=== PATIENT | female | born 1980 | race Caucasian/White ===

== ENCOUNTER → 2018-08-06 10:18 | Outpatient (CLI) | payer SELFPAY ==
[2018-08-09 13:16] LABS: HPV Reflexed? NOT INDICATED
== END ==
PROVIDERS: Visit Provider Obstetrics & Gynecology
DX: Z12.4 Encounter for screening for malignant neoplasm of cervix (principal)
CPT/HCPCS: 88175; G0145

== ENCOUNTER → 2018-08-27 10:13 | Outpatient (CLI) | payer SELFPAY ==
--- NOTE | 2018-08-27 10:22 | BI_ITS ---
MAMMOGRAPHY - BILATERAL SCREENING REASON FOR EXAM: Female, 38 years old. Routine annual screening examination. PERTINENT HISTORY: Non-contributory. Remote left excisional breast biopsy. TECHNIQUE: Digital bilateral breast emperatriz (3D mammographic acquisition) in the CC and MLO projections. 2-D mediolateral oblique (MLO) and craniocaudad (CC) views of both breasts were obtained. CAD: Full Field Digital Mammography with Computer Added Detection was performed. COMPARISON: None. Baseline examination. FINDINGS: Breast Composition: The breasts are extremely dense, which lowers the sensitivity of mammography. There are no dominant masses or suspicious calcifications. No other significant abnormalities are identified. BI/SCREENING MAMM (CAD), BILAT IMPRESSION: Negative screening mammogram. Yearly followup mammogram recommended. (A) ASSESSMENT CATEGORY: BIRADS Category 1: Negative. A letter regarding these results will be sent to the patient by the facility within 30 days. Approximately 10% of breast cancers are not detected by mammography. A normal mammogram should not delay biopsy of a clinically suspicious abnormality. [id number] Electronically Signed: Rodger Manning MD at 10:31 EDT Tel [phone], Service support ,
== END ==
PROVIDERS: Family Provider Internal Medicine; PCP Internal Medicine; Visit Provider Obstetrics & Gynecology
DX: Z12.31 Encounter for screening mammogram for malignant neoplasm of breast (principal)
CPT/HCPCS: 77063; 77067

== ENCOUNTER → 2019-03-06 | Outpatient (CLI) | payer SELFPAY ==
--- NOTE | 2019-03-06 10:19 | RAD_ITS ---
STUDY: X-RAY - RIGHT TIBIA AND FIBULA REASON FOR EXAM: Female, 38 years old. Distal pain. TECHNIQUE: 2 view(s) of the tibia and fibula were obtained. COMPARISON: None. FINDINGS: Normal visualized tibia. Normal visualized fibula. The soft tissue structures are unremarkable. RAD/Tibia & Fibula 2 Views IMPRESSION: Normal x-ray examination of the tibia and fibula. Electronically Signed: Rodger Manning, at 10:39 EDT , Service support ,
== END | disposition home or self-care (01) ==
PROVIDERS: Family Provider Internal Medicine; PCP Internal Medicine; Referring Provider Internal Medicine; Visit Provider Internal Medicine
DX: M79.604 Pain in right leg (principal)
CPT/HCPCS: 73590

== ENCOUNTER → 2019-08-14 | Outpatient (CLI) | payer SELFPAY ==
--- NOTE | 2019-08-14 14:27 | BI_ITS ---
BILATERAL DIGITAL MAMMOGRAM WITH TOMOSYNTHESIS: Mediolateraloblique and craniocaudal views demonstrate no evidence of dominant parenchymal masses. No cluster of microcalcifications or architectural distortion is seen. No evidence of skin thickening is identified. There has been no significant change since 08/27/2018. Breast Density: The breast tissue is extremely dense which may lower the sensitivity of mammography. CAD was used to assist in final assessment. IMPRESSION: NORMAL MAMMOGRAM BILATERALLY. ASSESSMENT CATEGORY: BIRADS Category 1: Negative. A letter regarding these results will be sent to the patient by the facility within 30 days. FOLLOW UP RECOMMENDATION: Yearly follow up mammogram recommended. (A) Approximately 10% of breast cancers are not detected by mammography. A normal mammogram should not delay biopsy of a clinically suspicious abnormality. Electronically Signed: Grabiel Vargas, at 16:47 EDT Tel , Service support , BI/SCREEN MAMM (CAD) W/SIGIFREDO OLEA
== END | disposition home or self-care (01) ==
PROVIDERS: Family Provider Internal Medicine; PCP Internal Medicine; Referring Provider Obstetrics & Gynecology; Visit Provider Obstetrics & Gynecology
DX: Z12.31 Encounter for screening mammogram for malignant neoplasm of breast (principal)
CPT/HCPCS: 77063; 77067

== ENCOUNTER → 2019-09-24 17:08 | Outpatient (CLI) | payer SELFPAY | PROVIDERS: Family Provider Internal Medicine; PCP Internal Medicine; Referring Provider Obstetrics & Gynecology; Visit Provider Obstetrics & Gynecology | DX: R30.0 Dysuria (principal) | CPT/HCPCS: 87086; 87088 ==

== ENCOUNTER → 2022-06-03 | Outpatient (CLI) | payer SELFPAY ==
[2022-06-07 21:49] LABS: HPV Reflexed? NOT INDICATED
== END | disposition home or self-care (01) ==
PROVIDERS: PCP Internal Medicine; Referring Provider Internal Medicine; Visit Provider Internal Medicine
DX: Z12.4 Encounter for screening for malignant neoplasm of cervix (principal)
CPT/HCPCS: 88175; G0145

== ENCOUNTER → 2022-06-29 | Outpatient (CLI) | payer SELFPAY ==
--- NOTE | 2022-06-29 10:22 | BI_ITS ---
MAMMOGRAPHY - BILATERAL SCREENING REASON FOR EXAM: Female, 42 years old. Routine annual screening examination. PERTINENT HISTORY: Non-contributory. Remote left excisional breast biopsy. TECHNIQUE: Digital bilateral breast sigifredo (3D mammographic acquisition) in the CC and MLO projections. 2-D mediolateral oblique (MLO) and craniocaudad (CC) views of both breasts were obtained. CAD: Full Field Digital Mammography with Computer Added Detection was performed. COMPARISON: Comparison is made with prior study dated 08/14/2019 and 08/27/2018. FINDINGS: Breast Composition: The breasts are extremely dense, which lowers the sensitivity of mammography. There are no dominant masses or suspicious calcifications. No other significant abnormalities are identified. There has been no significant change since the prior study. BI/SCRN MAMM (CAD)W/SIGIFREDO BILAT IMPRESSION: Stable bilateral screening mammogram. Yearly follow-up mammogram recommended. (A) ASSESSMENT CATEGORY: BIRADS Category 1: Negative. A letter regarding these results will be sent to the patient by the facility within 30 days. Approximately 10% of breast cancers are not detected by mammography. A normal mammogram should not delay biopsy of a clinically suspicious abnormality. [id number] Electronically Signed: Rodger Manning MD at 12:07 EDT ,
== END | disposition home or self-care (01) ==
LOC: OPBI 10:01
PROVIDERS: PCP Internal Medicine; Visit Provider Internal Medicine
DX: Z12.31 Encounter for screening mammogram for malignant neoplasm of breast (principal)
CPT/HCPCS: 77063; 77067

== ENCOUNTER → 2023-11-22 | Outpatient (CLI) | payer SELFPAY ==
--- NOTE | 2023-11-22 11:11 | VDLE_ITS ---
Reason For Study: RLE PAIN RIGHT GSV is normal. CFV is compressible, spontaneous, phasic, competent and demonstrates normal augmentation. FV is compressible, spontaneous, phasic, competent and demonstrates normal augmentation. POP V is compressible, spontaneous, phasic, competent and demonstrates normal augmentation. T/P Trunk is compressible. PTV is compressible. RT PerV is compressible. Procedure This is a venous duplex using B-mode, color flow and spectral Doppler. Exam performed in department. The exam was diagnostic. A preliminary report was called and/or faxed to Dr. Scott @ [phone] @ 11:30 am. Image #8 is PTV & PERV, Image #9 is PERV. VL/Venous Duplex US, Unilateral Interpretation Summary Deep veins of the right lower extremity are patent and compressible segmentally . There is no evidence of right lower extremity deep vein thrombosis. Valvular competence ada ears intact within the proximal deep venous system on the right . The right great saphenous vein a ppears patent and compressible segmentally. Ordering Physician: Naila Scott Referring Physician: Naila Scott Performed By: Kathy Mckeon, RDANTONINA, RVT
== END | disposition home or self-care (01) ==
PROVIDERS: PCP Internal Medicine; Referring Provider Internal Medicine; Visit Provider Internal Medicine
DX: M79.604 Pain in right leg (principal)
CPT/HCPCS: 93971

== ENCOUNTER 2024-01-04 05:58 | Day surgery (SDC) | payer SELFPAY ==
[2024-01-04] VITALS (8 sets, daily range): BP systolic 103–123; BP diastolic 66–95; PULSE 82–100; RESP 16; TEMP 36.2–37.3; O2SAT 100; BMI 26.4
[2024-01-04] MEDS: Lactated Ringers 1,000 ML 15 ML IV (06:39)
[2024-01-04 06:51] LABS: Internal QC Validated? YES +Cl - CLEAR BKGD; Pregnancy, Urine Negative Negative
--- OUTSIDE RECORDS SUMMARY | 2024-01-04 07:12 | XMS RPT_ITS | CCD ---
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 Name Role Phone Fast, Naila A Unavailable Fast, Naila A Unavailable Tejal Marroquin Unavailable Unavailable Manchak, Meaghan Unavailable Unavailable DANIELLA Dominguez Unavailable Unavailable Unavailable Unavailable Fast, Naila A Unavailable Fast, Naila A Unavailable Demetrio Roe Unavailable Unavailable Manchak, Meaghan Unavailable Unavailable RoseannedarioRaisa Unavailable Unavailable Unavailable Manchak, Meaghan Unavailable Unavailable DANIELLA Dominguez Unavailable Unavailable Fast DO, Naila A Unavailable Fast DO, Naila A Unavailable Manchak COLLETER, Meaghan Unavailable Unavailable Unavailable Unavailable Fast DO, Naila A Unavailable Fast DO, Naila A Attending Unavailable Fast DO, Naila A Referring Unavailable Fast DO, Naila A Consulting Unavailable Unavailable Unavailable Dr. William Jimenez Unavailable Dr. Naila Scott Attending Unavailable Dr. Naila Scott [facility] Unavailable Allergies Allergy Classification Reported Allergen(s) Allergy Type Date of Onset Reaction(s) Facility Quinolones (antibiotic) (2 sources) levoFLOXacin Drug Allergy [facility]; [facility] Work Phone: Medications Completed/Discontinued Medications Medication Drug Class(es) Dates Sig (Normalized) Sig (Original) amoxicillin 875 mg / clavulanate 125 mg oral tablet (20 sources) Penicillin-class Antibacterial Start: 09-14-2022 End: 04-24-2023 take 1 tablet by mouth twice daily amoxicillin-pot clavulanate 875-125 mg oral tablet 1 (one) Tablet twice daily for 14 days Quantity: 28 {Tablet} Refills: 1 Ordered: 24-Apr-2023 Meaghan Cevallos CMA Start : 14-Sep-2022 End : 24-Apr-2023 Inactive Problems Active Problems Problem Classification Problem Date Documented Da te Episodic/Chronic Abdominal hernia (20 sources) Hiatal hernia; Translations: [Hiatal hernia] 12-15-2017 Episodic Past or Other Problems Problem Classification Problem Date Documented Date Episodic/Chronic Administrative/social admission (20 sources) Medical examinations/reports status; Translations: [Well female exam with routine gynecological exam] Resolved: 04-22-2009 09-22-2015 Episodic Headache; including migraine (20 sources) Headache; including migraine Other nutritional; endocrine; and metabolic disorders (20 sources) Body mass index 25-29 - overweight; Translations: [BMI 25.0-25.9,adult] Resolved: 09-23-2019 03-06-2019 Chronic Other nutritional; endocrine; and metabolic disorders (7 sources) Body mass index 25-29 - overweight; Translations: [BMI 25.0-25.9,adult] Resolved: 09-23-2019 11-10-2020 Episodic Otitis media and related conditions (20 sources) Otitis media and related conditions Residual codes; unclassified (20 sources) Requires diphtheria, tetanus and pertussis vaccination; Translations: [Need for Tdap vaccination] Resolved: 01-25-2017 01-25-2017 Episodic Unclassified (20 sources) Influenza vaccination declined (Renamed from Refused influenza vaccine) Unclassified (20 sources) Abnormal gallbladder ultrasound Unclassified (20 sources) Unspecified Diagnosis Resolved: 01-25-2017 01-25-2017 Unclassified (20 sources) Diarrhea (Renamed from D (diarrhea)) Unclassified (20 sources) Rash (Renamed from Cutaneous eruption) Unclassified (20 sources) Acute ethmoidal sinusitis, recurrence not specified Unclassified (20 sources) Varicose veins of legs Unclassified (20 sources) Need for Tdap vaccination Unclassified (20 sources) [facility] wellness exam 12-15-2017 Results Test Name Value Interpretation Reference Range Facil ity Vital Signs Date Time Vital Sign Value Performing Clinician Facility 04-24-2023 13:34-0400 Body height 156.21 cm Meaghan Cevallos [facility]; [facility] Work Phone: 04-24-2023 13:34-0400 Body mass index (BMI) [Ratio] 25.2 kg/m2 Meaghan Cevallos [facility]; [facility] Work Phone: 04-24-2023 13:34-0400 Body surface area Derived from formula 1.61 m2 Meaghan Cevallos [facility]; [facility] Work Phone: 04-24-2023 13:34-0400 Body temperature 98.4 [degF] Meaghan Cevallos [facility] Comprehensi ve [facility]; [facility] Work Phone: Encounters Encounter Date Encounter Type Care Provider Facility Start: 08-25-2023 End: 08-25-2023 Phone Encounter Naila Fast DO Work Phone: [facility] Start: 05-24-2023 End: 05-24-2023 Phone Encounter Naila Fast DO Work Phone: [facility] Start: 05-17-[address] Naila Scott Facili ty:[id number] Start: 04-24-2023 End: 04-24-2023 Patient encounter procedure Naila Fast DO Work Phone: [facility] Start: 04-24-2023 Review Naila Fast DO Work Phone: [facility] Start: 04-14-2023 End: 04-11-2023 Phone Encounter Naila Fast DO Work Phone: [facility] Start: 01-13-2023 ambulatory Naila Mcmullen [facility] Start: 09-14-2022 End: 09-18-2022 Office outpatient visit 10 minutes Naila Fast DO Work Phone: [facility] Start: 09-14-2022 Review Naila Fast DO Work Phone: [facility] Start: 06-03-2022 End: 06-03-2022 Office outpatient visit 25 minutes Naila Fast DO Work Phone: [facility] Start: 06-03-2022 Review Naila Fast DO Work Phone: [facility] Start: 05-18-2022 End: 07-27-2022 Phone Encounter Naila Fast DO Work Phone: [facility] Start: 05-18-2022 Review Naila Fast DO Work Phone: [facility] Start: 12-03-2021 End: 12-03-2021 Phone Encounter Naila Fast DO Work Phone: [facility] Start: 11-17-2021 End: 11-21-2021 Office outpatient visit 15 minutes Naila Fast DO Work Phone: [facility] Start: 05-12-2021 End: 05-13-2021 Office outpatient visit 15 minutes Naila Fast DO Work Phone: [facility] Start: 11-16-2020 End: 11-16-2020 Office outpatient visit 15 minutes Naila Fast [facility] Start: 11-10-2020 End: 11-15-2020 Office outpatient visit 15 minutes Naila Fast [facility] Start: 11-10-2020 Review Naila Fast [facility] Start: 10-08-2020 End: 10-08-2020 Lab Order Naila Fast [facility] Start: 04-08-2020 End: 04-08-2020 Phone Encounter Naila Fast [facility] Start: 03-23-2020 End: 03-23-2020 Office outpatient visit 25 minutes Naila Fast [facility] Start: 01-08-2020 End: 01-08-2020 Office outpatient visit 15 minutes Naila Fast [facility] Start: 11-28-2019 End: 11-28-2019 Periodic preventive med est patient 18-39 yrs Naila Fast [facility] Start: 09-23-2019 End: 02-18-2020 Office outpatient visit 25 minutes Naila Fast [facility] Start: 09-23-2019 Review Naila Fast [facility] Start: 09-09-2019 End: 09-09-2019 Office outpatient visit 15 minutes Naila Fast [facility] Start: 09-02-2019 End: 09-02-2019 Office outpatient visit 5 minutes Naila Fast [facility] Start: 03-06-2019 End: 03-07-2019 Office outpatient visit 15 minutes Naila Fast [facility] Start: 02-15-2019 Review Nailaernie Scott [facility] Start: 02-14-2019 End: 02-15-2019 Office outpatient visit 5 minutes Naila Fast [facility] Start: 01-31-2019 End: 01-31-2019 Lab Order Naila Fast [facility] Start: 01-04-2019 End: 01-04-2019 Lab Order Naila Fast [facility] Start: 01-04-2019 End: 01-04-2019 Office outpatient visit 15 minutes Naila Fast [facility] Start: 09-12-2018 End: 11-07-2018 Office outpatient visit 5 minutes Naila Fast [facility] Start: 08-27-2018 End: 08-27-2018 Office outpatient visit 15 minutes Naila Fast [facility] Start: 08-20-2018 End: 08-20-2018 Lab Order Naila Fast [facility] Start: 12-15-2017 End: 12-15-2017 Office outpatient visit 15 minutes Naila Fast [facility] Start: 10-23-2017 End: 11-12-2017 Office outpatient visit 15 minutes Naila Fast [facility] Start: 06-06-2017 End: 06-06-2017 Office outpatient visit 15 minutes Naila Fast [facility] Start: 03-30-2017 End: 03-30-2017 Phone Encounter Naila Fast [facility] Start: 01-25-2017 End: 01-26-2017 Office outpatient visit 15 minutes Naila Fast [facility] Start: 01-09-2017 End: 01-09-2017 Phone Encounter Naila Fast [facility] Start: 10-19-2016 End: 11-03-2016 Office outpatient visit 5 minutes Naila Fast [facility] Start: 05-26-2016 End: 05-26-2016 Office outpatient visit 5 minutes Naila Fast [facility] Start: 05-04-2016 End: 05-04-2016 Office outpatient visit 25 minutes Naila Fast [facility] Start: 02-02-2016 End: 02-02-2016 Office outpatient visit 25 minutes Naila Fast [facility] Start: 09-01-2015 End: 09-01-2015 Office outpatient visit 15 minutes Naila Fast [facility] Start: 08-31-2015 End: 08-31-2015 Phone Encounter Nailaernie Scott [facility] Start: 08-25-2015 End: 08-25-2015 Office outpatient visit 15 minutes Naila Tyler [facility] Start: 08-24-2015 End: 08-24-2015 Office outpatient visit 25 minutes Nailaernie Scott [facility] Start: 08-18-2015 End: 08-18-2015 Office outpatient visit 15 minutes Nailaernie Scott [facility] Start: 07-14-2015 End: 07-14-2015 Office outpatient visit 25 minutes Nailaernie Scott [facility] Start: 06-01-2015 End: 06-01-2015 Patient encounter Naliaernie Scott [facility] Start: 08-15-2013 End: 08-15-2013 Patient encounter Nailaernie Scott [facility] Start: 07-05-2013 End: 07-05-2013 Patient encounter Nailaernie Scott [facility] Start: 06-03-2013 End: 06-03-2013 Phone Encounter Nailaernie Scott [facility] Start: 02-29-2012 End: 02-29-2012 Patient encounter Nailaernie Scott [facility] Start: 10-19-2011 End: 10-19-2011 Office outpatient visit 15 minutes Nailaernie Scott [facility] Start: 03-28-2011 End: 03-28-2011 Patient encounter Nailaernie Scott [facility] Start: 12-06-2010 End: 12-06-2010 Patient encounter Nailaernie Scott [facility] Start: 08-24-2009 End: 08-24-2009 Patient encounter Nailaernie Scott [facility] Start: 05-25-2009 End: 05-26-2009 Patient encounter Nailaernie Scott [facility] Start: 02-17-2009 End: 02-17-2009 Patient encounter Nailaernie Scott [facility] Start: 12-17-2008 End: 12-17-2008 Medical examinations/reports status Naila Scott DO Work Phone: [facility] Start: 12-17-2008 End: 12-17-2008 Office outpatient visit 15 minutes Nailaernie Scott [facility] Start: 11-21-2008 End: 11-21-2008 Patient encounter Nailaernie Scott [facility] Start: 09-05-2008 End: 09-05-2008 Patient encounter Naila Tyler [facility] Start: 03-28-2008 End: 03-28-2008 Patient encounter Naila Scott [facility] Start: 01-09-2008 End: 01-09-2008 Patient encounter Naila Scott [facility] Start: 10-05-2007 End: 10-05-2007 Patient encounter Naila Scott [facility] Start: 02-13-2007 End: 02-13-2007 Patient encounter Naila Scott [facility] End: 04-22-2009 Medical examinations/reports status Bobbi Mandujano [facility]; [facility] Work Phone: Procedures Date Procedure Procedure Detail Performing Clinician Start: 07-21-2023 End: 07-21-2023 Colonoscopy Meaghan Cevallos CMA Plan of Treatment Date Care Activity Detail Author Start: 04-24-2023 Urnls dip stick/tablet rgnt auto w/o microscopy URINALYSIS W/O MICRO (08086) [facility]; [facility] Work Phone: Start: 04-24-2023 C-reactive protein C-REACTIVE PROTEIN (37603) [facility]; [facility] Work Phone: Start: 04-24-2023 Sedimentation rate rbc non-automated SED RATE ERYTHROCYTE (04358) [facility]; [facility] Work Phone: Start: 04-24-2023 Procedure Education Eprescribed prescriptions (G8553) [facility]; [facility] Work Phone: Start: 04-14-2023 CBC, PLATELETS & MANUAL DIFF (54832) CBC, PLATELETS & MANUAL DIFF (71580) [facility]; [facility] Work Phone: Start: 04-14-2023 Comprehensive metabolic panel METABOLIC PANEL, COMPREHENSIVE (54086) [facility]; [facility] Work Phone: Start: 04-14-2023 Urnls dip stick/tablet reagent auto microscopy Urinalysis, Complete W/ Microscopic Examination with reflex to urine culture, routine (48082) [facility]; [facility] Work Phone: Start: 09-14-2022 Procedure Education Eprescribed prescriptions (G8553) [facility]; [facility] Work Phone: Start: 06-03-2022 Procedure Education Eprescribed prescriptions (G8553) [facility]; [facility] Work Phone: Start: 06-03-2022 Comprehensive metabolic panel METABOLIC PANEL, COMPREHENSIVE (46271) [facility]; [facility] Work Phone: Start: 06-03-2022 Lipid panel LIPID PANEL (41098) [facility]; [facility] Work Phone: Start: 06-03-2022 Cytp c/v auto thin lyr prepj scr mnl rescr phys Thin Prep Pap (28932) [facility]; [facility] Work Phone: Start: 05-18-2022 Comprehensive metabolic panel METABOLIC PANEL, COMPREHENSIVE (53619) [facility]; [facility] Work Phone: Start: 05-18-2022 CBC, PLATELETS & MANUAL DIFF (85035) CBC, PLATELETS & MANUAL DIFF (76406) [facility]; [facility] Work Phone: Start: 11-21-2021 Procedure Education Eprescribed prescriptions (G8553) [facility]; [facility] Work Phone: Start: 05-12-2021 Procedure Education Eprescribed prescriptions (G8553) [facility]; [facility] Work Phone: Start: 11-10-2020 Procedure Education Eprescribed prescriptions (G8553) [facility]; [facility] Work Phone: Start: 10-08-2020 Culture bct isol&prsmptv id isolate ea urine URINE VANESSA CULTURE-IDENTIFICATN (13203) [facility] Work Phone: Start: 03-23-2020 Procedure Education Eprescribed prescriptions (G8553) [facility] Work Phone: Start: 03-23-2020 Bacteria identified Aer cx Nom (Unsp spec) Aerobic Bacterial Culture (19922) [facility] Work Phone: Payers Date Payer Category Payer Unknown [id number] 2012 Unknown [id number] 2007 Unknown [id number] 2006 Private Health Insurance [id number] 1978 Unknown [id number] 1978 Unknown [id number] Unknown Unknown [id number] Social History Date Type Detail Facility Caffeine Use Never smoker [facility] Work Phone: Tobacco use: Never smoker. [facility] Work Phone: Tobacco use: Tobacco use: [facility] Work Phone: Clinical Notes Note Date & Type Note Facility [facility] Work Phone: Instructions* Name Dates Details Patient Instructions Indication:COVID Start:21-Nov-2021 Instruction Type:Provider Instructions for Treatment Patient Instructions Indication:Polyp of skin Start:12-May-2021 Instruction Type:Provider Instructions for Treatment How to Access Health Informa tion Online using Patient Portal and [employer] Apps Indication:Polyp of skin Start:12-May-2021 Instruction Type:Patient Education Patient Instructions Indication:Nonsmoker Start:10-Nov-2020 Instruction Type:Provider Instructions for Treatment How to Access Health Informa tion Online using Patient Portal and [employer] Apps Indication:Nonsmoker Start:10-Nov-2020 Instruction Type:Patient Education How to access health informa tion online Indication:Vaginal irritation Start:23-Mar-2020 Instruction Type:Patient Education How to access health informa tion online - Detail Indication:Vaginal irritation Start:23-Mar-2020 Instruction Type:Patient Education Patient Instructions Indication:Vaginal irritation Start:23-Mar-2020 Instruction Type:Provider Instructions for Treatment How to access health informa tion online Indication:BMI 24.0-24.9, adult Start:08-Jan-2020 Instruction Type:Patient Education How to access health informa tion online - Detail Indication:BMI 24.0-24.9, adult Start:08-Jan-2020 Instruction Type:Patient Education Patient Instructions Indication:BMI 24.0-24.9, adult Start:08-Jan-2020 Instruction Type:Provider Instructions for Treatment How to access health informa tion online Indication:Nonsmoker Start:23-Sep-2019 Instruction Type:Patient Education How to access health informa tion online - Detail Indication:Nonsmoker Start:23-Sep-2019 Instruction Type:Patient Education Patient Instructions Indication:Nonsmoker Start:23-Sep-2019 Instruction Type:Provider Instructions for Treatment How to access health informa tion online Indication:Vaginal itching Start:09-Sep-2019 Instruction Type:Patient Education How to access health informa tion online - Detail Indication:Vaginal itching Start:09-Sep-2019 Instruction Type:Patient Education Patient Instructions Indication:Vaginal itching Start:09-Sep-2019 Instruction Type:Provider Instructions for Treatment How to access health informa tion online Indication:Postprandial abdominal bloating Start:06-Mar-2019 Instruction Type:Patient Education How to access health informa tion online - Detail Indication:Postprandial abdominal bloating Start:06-Mar-2019 Instruction Type:Patient Education Patient Instructions Indication:Postprandial abdominal bloating Start:06-Mar-2019 Instruction Type:Provider Instructions for Treatment How to access health informa tion online Indication:Nonsmoker Start:04-Jan-2019 Instruction Type:Patient Education How to access health informa tion online - Detail Indication:Nonsmoker Start:04-Jan-2019 Instruction Type:Patient Education Patient Instructions Indication:Nonsmoker Start:04-Jan-2019 Instruction Type:Provider Instructions for Treatment How to access health informa tion online Indication:Nonsmoker Start:12-Sep-2018 Instruction Type:Patient Education How to access health informa tion online - Detail Indication:Nonsmoker Start:12-Sep-2018 Instruction Type:Patient Education Patient Instructions Indication:Nonsmoker Start:12-Sep-2018 Instruction Type:Provider Instructions for Treatment How to access health informa tion online Indication:Acute sinusitis Start:27-Aug-2018 Instruction Type:Patient Education How to access health informa tion online - Detail Indication:Acute sinusitis Start:27-Aug-2018 Instruction Type:Patient Education Patient Instructions Indication:Acute sinusitis Start:27-Aug-2018 Instruction Type:Provider Instructions for Treatment How to access health informa tion online Indication:Nonsmoker Start:15-Dec-2017 Instruction Type:Patient Education How to access health informa tion online - Detail Indication:Nonsmoker Start:15-Dec-2017 Instruction Type:Patient Education Patient Instructions Indication:Nonsmoker Start:15-Dec-2017 Instruction Type:Provider Instructions for Treatment How to access health informa tion online Indication:Nonsmoker Start:23-Oct-2017 Instruction Type:Patient Education How to access health informa tion online - Detail Indication:Nonsmoker Start:23-Oct-2017 Instruction Type:Patient Education Patient Instructions Indication:Nonsmoker Start:23-Oct-2017 Instruction Type:Provider Instructions for Treatment How to access health informa tion online Indication:BMI between 19-24,adult Start:06-Jun-2017 Instruction Type:Patient Education How to access health informa tion online - Detail Indication:BMI between 19-24,adult Start:06-Jun-2017 Instruction Type:Patient Education Patient Instructions Indication:BMI between 19-24,adult Start:06-Jun-2017 Instruction Type:Provider Instructions for Treatment How to access health informa tion online Indication:Other hyperlipidemia Start:25-Jan-2017 Instruction Type:Patient Education How to access health informa tion online - Detail Indication:Other hyperlipidemia Start:25-Jan-2017 Instruction Type:Patient Education Patient Instructions Indication:Other hyperlipidemia Start:25-Jan-2017 Instruction Type:Provider Instructions for Treatment How to access health informa tion online Indication:BMI between 19-24,adult Start:19-Oct-2016 Instruction Type:Patient Education How to access health informa tion online - Detail Indication:BMI between 19-24,adult Start:19-Oct-2016 Instruction Type:Patient Education Patient Instructions Indication:BMI between 19-24,adult Start:19-Oct-2016 Instruction Type:Provider Instructions for Treatment How to access health informa tion online Indication:Postprandial abdominal bloating Start:04-May-2016 Instruction Type:Patient Education How to access health informa tion online - Detail Indication:Postprandial abdominal bloating Start:04-May-2016 Instruction Type:Patient Education Patient Instructions Indication:Postprandial abdominal bloating Start:04-May-2016 Instruction Type:Provider Instructions for Treatment How to access health informa tion online Indication:Other hyperlipidemia Start:02-Feb-2016 Instruction Type:Patient Education How to access health informa tion online - Detail Indication:Other hyperlipidemia Start:02-Feb-2016 Instruction Type:Patient Education Patient Instructions Indication:Other hyperlipidemia Start:02-Feb-2016 Instruction Type:Provider Instructions for Treatment How to access health informa tion online Indication:Weakness Start:01-Sep-2015 Instruction Type:Patient Education How to access health informa tion online - Detail Indication:Weakness Start:01-Sep-2015 Instruction Type:Patient Education Patient Instructions Indication:Weakness Start:01-Sep-2015 Instruction Type:Provider Instructions for Treatment Patient Instructions Indication:Rash (Renamed from Cutaneous eruption) Start:25-Aug-2015 Instruction Type:Provider Instructions for Treatment Patient Instructions Indication:Weakness Start:24-Aug-2015 Instruction Type:Provider Instructions for Treatment How to access health informa tion online Indication:Acute ethmoidal sinusitis, recurrence not specified Start:18-Aug-2015 Instruction Type:Patient Education How to access health informa tion online - Detail Indication:Acute ethmoidal sinusitis, recurrence not specified Start:18-Aug-2015 Instruction Type:Patient Education Patient Instructions Indication:Acute ethmoidal sinusitis, recurrence not specified Start:18-Aug-2015 Instruction Type:Provider Instructions for Treatment How to access health informa tion online Indication:Other hyperlipidemia Start:14-Jul-2015 Instruction Type:Patient Education How to access health informa tion online - Detail Indication:Other hyperlipidemia Start:14-Jul-2015 Instruction Type:Patient Education Patient Instructions Indication:Other hyperlipidemia Start:14-Jul-2015 Instruction Type:Provider Instructions for Treatment Patient Instructions Indication:Otitis media Start:15-Aug-2013 Instruction Type:Provider Instructions for Treatment Patient Instructions Indication:Family history of heart attack Start:05-Jul-2013 Instruction Type:Provider Instructions for Treatment [facility] Work Phone: Instructions* Name Dates Details Patient Instructions Indication:COVID Start:21-Nov-2021 Instruction Type:Provider Instructions for Treatment Patient Instructions Indication:Polyp of skin Start:12-May-2021 Instruction Type:Provider Instructions for Treatment How to Access Health Informa tion Online using Patient Portal and [employer]rd [employer] Apps Indication:Polyp of skin Start:12-May-2021 Instruction Type:Patient Education Patient Instructions Indication:Nonsmoker Start:10-Nov-2020 Instruction Type:Provider Instructions for Treatment How to Access Health Informa tion Online using Patient Portal and [employer]rd [employer] Apps Indication:Nonsmoker Start:10-Nov-2020 Instruction Type:Patient Education How to access health informa tion online Indication:Vaginal irritation Start:23-Mar-2020 Instruction Type:Patient Education How to access health informa tion online - Detail Indication:Vaginal irritation Start:23-Mar-2020 Instruction Type:Patient Education Patient Instructions Indication:Vaginal irritation Start:23-Mar-2020 Instruction Type:Provider Instructions for Treatment How to access health informa tion online Indication:BMI 24.0-24.9, adult Start:08-Jan-2020 Instruction Type:Patient Education How to access health informa tion online - Detail Indication:BMI 24.0-24.9, adult Start:08-Jan-2020 Instruction Type:Patient Education Patient Instructions Indication:BMI 24.0-24.9, adult Start:08-Jan-2020 Instruction Type:Provider Instructions for Treatment How to access health informa tion online Indication:Nonsmoker Start:23-Sep-2019 Instruction Type:Patient Education How to access health informa tion online - Detail Indication:Nonsmoker Start:23-Sep-2019 Instruction Type:Patient Education Patient Instructions Indication:Nonsmoker Start:23-Sep-2019 Instruction Type:Provider Instructions for Treatment How to access health informa tion online Indication:Vaginal itching Start:09-Sep-2019 Instruction Type:Patient Education How to access health informa tion online - Detail Indication:Vaginal itching Start:09-Sep-2019 Instruction Type:Patient Education Patient Instructions Indication:Vaginal itching Start:09-Sep-2019 Instruction Type:Provider Instructions for Treatment How to access health informa tion online Indication:Postprandial abdominal bloating Start:06-Mar-2019 Instruction Type:Patient Education How to access health informa tion online - Detail Indication:Postprandial abdominal bloating Start:06-Mar-2019 Instruction Type:Patient Education Patient Instructions Indication:Postprandial abdominal bloating Start:06-Mar-2019 Instruction Type:Provider Instructions for Treatment How to access health informa tion online Indication:Nonsmoker Start:04-Jan-2019 Instruction Type:Patient Education How to access health informa tion online - Detail Indication:Nonsmoker Start:04-Jan-2019 Instruction Type:Patient Education Patient Instructions Indication:Nonsmoker Start:04-Jan-2019 Instruction Type:Provider Instructions for Treatment How to access health informa tion online Indication:Nonsmoker Start:12-Sep-2018 Instruction Type:Patient Education How to access health informa tion online - Detail Indication:Nonsmoker Start:12-Sep-2018 Instruction Type:Patient Education Patient Instructions Indication:Nonsmoker Start:12-Sep-2018 Instruction Type:Provider Instructions for Treatment How to access health informa tion online Indication:Acute sinusitis Start:27-Aug-2018 Instruction Type:Patient Education How to access health informa tion online - Detail Indication:Acute sinusitis Start:27-Aug-2018 Instruction Type:Patient Education Patient Instructions Indication:Acute sinusitis Start:27-Aug-2018 Instruction Type:Provider Instructions for Treatment How to access health informa tion online Indication:Nonsmoker Start:15-Dec-2017 Instruction Type:Patient Education How to access health informa tion online - Detail Indication:Nonsmoker Start:15-Dec-2017 Instruction Type:Patient Education Patient Instructions Indication:Nonsmoker Start:15-Dec-2017 Instruction Type:Provider Instructions for Treatment How to access health informa tion online Indication:Nonsmoker Start:23-Oct-2017 Instruction Type:Patient Education How to access health informa tion online - Detail Indication:Nonsmoker Start:23-Oct-2017 Instruction Type:Patient Education Patient Instructions Indication:Nonsmoker Start:23-Oct-2017 Instruction Type:Provider Instructions for Treatment How to access health informa tion online Indication:BMI between 19-24,adult Start:06-Jun-2017 Instruction Type:Patient Education How to access health informa tion online - Detail Indication:BMI between 19-24,adult Start:06-Jun-2017 Instruction Type:Patient Education Patient Instructions Indication:BMI between 19-24,adult Start:06-Jun-2017 Instruction Type:Provider Instructions for Treatment How to access health informa tion online Indication:Other hyperlipidemia Start:25-Jan-2017 Instruction Type:Patient Education How to access health informa tion online - Detail Indication:Other hyperlipidemia Start:25-Jan-2017 Instruction Type:Patient Education Patient Instructions Indication:Other hyperlipidemia Start:25-Jan-2017 Instruction Type:Provider Instructions for Treatment How to access health informa tion online Indication:BMI between 19-24,adult Start:19-Oct-2016 Instruction Type:Patient Education How to access health informa tion online - Detail Indication:BMI between 19-24,adult Start:19-Oct-2016 Instruction Type:Patient Education Patient Instructions Indication:BMI between 19-24,adult Start:19-Oct-2016 Instruction Type:Provider Instructions for Treatment How to access health informa tion online Indication:Postprandial abdominal bloating Start:04-May-2016 Instruction Type:Patient Education How to access health informa tion online - Detail Indication:Postprandial abdominal bloating Start:04-May-2016 Instruction Type:Patient Education Patient Instructions Indication:Postprandial abdominal bloating Start:04-May-2016 Instruction Type:Provider Instructions for Treatment How to access health informa tion online Indication:Other hyperlipidemia Start:02-Feb-2016 Instruction Type:Patient Education How to access health informa tion online - Detail Indication:Other hyperlipidemia Start:02-Feb-2016 Instruction Type:Patient Education Patient Instructions Indication:Other hyperlipidemia Start:02-Feb-2016 Instruction Type:Provider Instructions for Treatment How to access health informa tion online Indication:Weakness Start:01-Sep-2015 Instruction Type:Patient Education How to access health informa tion online - Detail Indication:Weakness Start:01-Sep-2015 Instruction Type:Patient Education Patient Instructions Indication:Weakness Start:01-Sep-2015 Instruction Type:Provider Instructions for Treatment Patient Instructions Indication:Rash (Renamed from Cutaneous eruption) Start:25-Aug-2015 Instruction Type:Provider Instructions for Treatment Patient Instructions Indication:Weakness Start:24-Aug-2015 Instruction Type:Provider Instructions for Treatment How to access health informa tion online Indication:Acute ethmoidal sinusitis, recurrence not specified Start:18-Aug-2015 Instruction Type:Patient Education How to access health informa tion online - Detail Indication:Acute ethmoidal sinusitis, recurrence not specified Start:18-Aug-2015 Instruction Type:Patient Education Patient Instructions Indication:Acute ethmoidal sinusitis, recurrence not specified Start:18-Aug-2015 Instruction Type:Provider Instructions for Treatment How to access health informa tion online Indication:Other hyperlipidemia Start:14-Jul-2015 Instruction Type:Patient Education How to access health informa tion online - Detail Indication:Other hyperlipidemia Start:14-Jul-2015 Instruction Type:Patient Education Patient Instructions Indication:Other hyperlipidemia Start:14-Jul-2015 Instruction Type:Provider Instructions for Treatment Patient Instructions Indication:Otitis media Start:15-Aug-2013 Instruction Type:Provider Instructions for Treatment Patient Instructions Indication:Family history of heart attack Start:05-Jul-2013 Instruction Type:Provider Instructions for Treatment [facility] Work Phone: Instructions* Name Dates Details Patient Instructions Indication:[facility] EX[facility] Start:03-Jun-2022 Instruction Type:Provider Instructions for Treatment How to Access Health Informa tion Online using Patient Portal and [employer]rd [employer] Apps Indication:[facility] EX[facility] Start:03-Jun-2022 Instruction Type:Patient Education Patient Instructions Indication:COVID Start:21-Nov-2021 Instruction Type:Provider Instructions for Treatment Patient Instructions Indication:Polyp of skin Start:12-May-2021 Instruction Type:Provider Instructions for Treatment How to Access Health Informa tion Online using Patient Portal and [employer]rd [employer] Apps Indication:Polyp of skin Start:12-May-2021 Instruction Type:Patient Education Patient Instructions Indication:Nonsmoker Start:10-Nov-2020 Instruction Type:Provider Instructions for Treatment How to Access Health Informa tion Online using Patient Portal and [employer]rd [employer] Apps Indication:Nonsmoker Start:10-Nov-2020 Instruction Type:Patient Education How to access health informa tion online Indication:Vaginal irritation Start:23-Mar-2020 Instruction Type:Patient Education How to access health informa tion online - Detail Indication:Vaginal irritation Start:23-Mar-2020 Instruction Type:Patient Education Patient Instructions Indication:Vaginal irritation Start:23-Mar-2020 Instruction Type:Provider Instructions for Treatment How to access health informa tion online Indication:BMI 24.0-24.9, adult Start:08-Jan-2020 Instruction Type:Patient Education How to access health informa tion online - Detail Indication:BMI 24.0-24.9, adult Start:08-Jan-2020 Instruction Type:Patient Education Patient Instructions Indication:BMI 24.0-24.9, adult Start:08-Jan-2020 Instruction Type:Provider Instructions for Treatment How to access health informa tion online Indication:Nonsmoker Start:23-Sep-2019 Instruction Type:Patient Education How to access health informa tion online - Detail Indication:Nonsmoker Start:23-Sep-2019 Instruction Type:Patient Education Patient Instructions Indication:Nonsmoker Start:23-Sep-2019 Instruction Type:Provider Instructions for Treatment How to access health informa tion online Indication:Vaginal itching Start:09-Sep-2019 Instruction Type:Patient Education How to access health informa tion online - Detail Indication:Vaginal itching Start:09-Sep-2019 Instruction Type:Patient Education Patient Instructions Indication:Vaginal itching Start:09-Sep-2019 Instruction Type:Provider Instructions for Treatment How to access health informa tion online Indication:Postprandial abdominal bloating Start:06-Mar-2019 Instruction Type:Patient Education How to access health informa tion online - Detail Indication:Postprandial abdominal bloating Start:06-Mar-2019 Instruction Type:Patient Education Patient Instructions Indication:Postprandial abdominal bloating Start:06-Mar-2019 Instruction Type:Provider Instructions for Treatment How to access health informa tion online Indication:Nonsmoker Start:04-Jan-2019 Instruction Type:Patient Education How to access health informa tion online - Detail Indication:Nonsmoker Start:04-Jan-2019 Instruction Type:Patient Education Patient Instructions Indication:Nonsmoker Start:04-Jan-2019 Instruction Type:Provider Instructions for Treatment How to access health informa tion online Indication:Nonsmoker Start:12-Sep-2018 Instruction Type:Patient Education How to access health informa tion online - Detail Indication:Nonsmoker Start:12-Sep-2018 Instruction Type:Patient Education Patient Instructions Indication:Nonsmoker Start:12-Sep-2018 Instruction Type:Provider Instructions for Treatment How to access health informa tion online Indication:Acute sinusitis Start:27-Aug-2018 Instruction Type:Patient Education How to access health informa tion online - Detail Indication:Acute sinusitis Start:27-Aug-2018 Instruction Type:Patient Education Patient Instructions Indication:Acute sinusitis Start:27-Aug-2018 Instruction Type:Provider Instructions for Treatment How to access health informa tion online Indication:Nonsmoker Start:15-Dec-2017 Instruction Type:Patient Education How to access health informa tion online - Detail Indication:Nonsmoker Start:15-Dec-2017 Instruction Type:Patient Education Patient Instructions Indication:Nonsmoker Start:15-Dec-2017 Instruction Type:Provider Instructions for Treatment How to access health informa tion online Indication:Nonsmoker Start:23-Oct-2017 Instruction Type:Patient Education How to access health informa tion online - Detail Indication:Nonsmoker Start:23-Oct-2017 Instruction Type:Patient Education Patient Instructions Indication:Nonsmoker Start:23-Oct-2017 Instruction Type:Provider Instructions for Treatment How to access health informa tion online Indication:BMI between 19-24,adult Start:06-Jun-2017 Instruction Type:Patient Education How to access health informa tion online - Detail Indication:BMI between 19-24,adult Start:06-Jun-2017 Instruction Type:Patient Education Patient Instructions Indication:BMI between 19-24,adult Start:06-Jun-2017 Instruction Type:Provider Instructions for Treatment How to access health informa tion online Indication:Other hyperlipidemia Start:25-Jan-2017 Instruction Type:Patient Education How to access health informa tion online - Detail Indication:Other hyperlipidemia Start:25-Jan-2017 Instruction Type:Patient Education Patient Instructions Indication:Other hyperlipidemia Start:25-Jan-2017 Instruction Type:Provider Instructions for Treatment How to access health informa tion online Indication:BMI between 19-24,adult Start:19-Oct-2016 Instruction Type:Patient Education How to access health informa tion online - Detail Indication:BMI between 19-24,adult Start:19-Oct-2016 Instruction Type:Patient Education Patient Instructions Indication:BMI between 19-24,adult Start:19-Oct-2016 Instruction Type:Provider Instructions for Treatment How to access health informa tion online Indication:Postprandial abdominal bloating Start:04-May-2016 Instruction Type:Patient Education How to access health informa tion online - Detail Indication:Postprandial abdominal bloating Start:04-May-2016 Instruction Type:Patient Education Patient Instructions Indication:Postprandial abdominal bloating Start:04-May-2016 Instruction Type:Provider Instructions for Treatment How to access health informa tion online Indication:Other hyperlipidemia Start:02-Feb-2016 Instruction Type:Patient Education How to access health informa tion online - Detail Indication:Other hyperlipidemia Start:02-Feb-2016 Instruction Type:Patient Education Patient Instructions Indication:Other hyperlipidemia Start:02-Feb-2016 Instruction Type:Provider Instructions for Treatment How to access health informa tion online Indication:Weakness Start:01-Sep-2015 Instruction Type:Patient Education How to access health informa tion online - Detail Indication:Weakness Start:01-Sep-2015 Instruction Type:Patient Education Patient Instructions Indication:Weakness Start:01-Sep-2015 Instruction Type:Provider Instructions for Treatment Patient Instructions Indication:Rash (Renamed from Cutaneous eruption) Start:25-Aug-2015 Instruction Type:Provider Instructions for Treatment Patient Instructions Indication:Weakness Start:24-Aug-2015 Instruction Type:Provider Instructions for Treatment How to access health informa tion online Indication:Acute ethmoidal sinusitis, recurrence not specified Start:18-Aug-2015 Instruction Type:Patient Education How to access health informa tion online - Detail Indication:Acute ethmoidal sinusitis, recurrence not specified Start:18-Aug-2015 Instruction Type:Patient Education Patient Instructions Indication:Acute ethmoidal sinusitis, recurrence not specified Start:18-Aug-2015 Instruction Type:Provider Instructions for Treatment How to access health informa tion online Indication:Other hyperlipidemia Start:14-Jul-2015 Instruction Type:Patient Education How to access health informa tion online - Detail Indication:Other hyperlipidemia Start:14-Jul-2015 Instruction Type:Patient Education Patient Instructions Indication:Other hyperlipidemia Start:14-Jul-2015 Instruction Type:Provider Instructions for Treatment Patient Instructions Indication:Otitis media Start:15-Aug-2013 Instruction Type:Provider Instructions for Treatment Patient Instructions Indication:Family history of heart attack Start:05-Jul-2013 Instruction Type:Provider Instructions for Treatment [facility] Work Phone: Instructions* Name Dates Details Patient Instructions Indication:[facility] EX[facility] Start:03-Jun-2022 Instruction Type:Provider Instructions for Treatment How to Access Health Informa tion Online using Patient Portal and [employer]rd [employer] Apps Indication:[facility] EX[facility] Start:03-Jun-2022 Instruction Type:Patient Education Patient Instructions Indication:COVID Start:21-Nov-2021 Instruction Type:Provider Instructions for Treatment Patient Instructions Indication:Polyp of skin Start:12-May-2021 Instruction Type:Provider Instructions for Treatment How to Access Health Informa tion Online using Patient Portal and [employer]rd [employer] Apps Indication:Polyp of skin Start:12-May-2021 Instruction Type:Patient Education Patient Instructions Indication:Nonsmoker Start:10-Nov-2020 Instruction Type:Provider Instructions for Treatment How to Access Health Informa tion Online using Patient Portal and [employer]rd [employer] Apps Indication:Nonsmoker Start:10-Nov-2020 Instruction Type:Patient Education How to access health informa tion online Indication:Vaginal irritation Start:23-Mar-2020 Instruction Type:Patient Education How to access health informa tion online - Detail Indication:Vaginal irritation Start:23-Mar-2020 Instruction Type:Patient Education Patient Instructions Indication:Vaginal irritation Start:23-Mar-2020 Instruction Type:Provider Instructions for Treatment How to access health informa tion online Indication:BMI 24.0-24.9, adult Start:08-Jan-2020 Instruction Type:Patient Education How to access health informa tion online - Detail Indication:BMI 24.0-24.9, adult Start:08-Jan-2020 Instruction Type:Patient Education Patient Instructions Indication:BMI 24.0-24.9, adult Start:08-Jan-2020 Instruction Type:Provider Instructions for Treatment How to access health informa tion online Indication:Nonsmoker Start:23-Sep-2019 Instruction Type:Patient Education How to access health informa tion online - Detail Indication:Nonsmoker Start:23-Sep-2019 Instruction Type:Patient Education Patient Instructions Indication:Nonsmoker Start:23-Sep-2019 Instruction Type:Provider Instructions for Treatment How to access health informa tion online Indication:Vaginal itching Start:09-Sep-2019 Instruction Type:Patient Education How to access health informa tion online - Detail Indication:Vaginal itching Start:09-Sep-2019 Instruction Type:Patient Education Patient Instructions Indication:Vaginal itching Start:09-Sep-2019 Instruction Type:Provider Instructions for Treatment How to access health informa tion online Indication:Postprandial abdominal bloating Start:06-Mar-2019 Instruction Type:Patient Education How to access health informa tion online - Detail Indication:Postprandial abdominal bloating Start:06-Mar-2019 Instruction Type:Patient Education Patient Instructions Indication:Postprandial abdominal bloating Start:06-Mar-2019 Instruction Type:Provider Instructions for Treatment How to access health informa tion online Indication:Nonsmoker Start:04-Jan-2019 Instruction Type:Patient Education How to access health informa tion online - Detail Indication:Nonsmoker Start:04-Jan-2019 Instruction Type:Patient Education Patient Instructions Indication:Nonsmoker Start:04-Jan-2019 Instruction Type:Provider Instructions for Treatment How to access health informa tion online Indication:Nonsmoker Start:12-Sep-2018 Instruction Type:Patient Education How to access health informa tion online - Detail Indication:Nonsmoker Start:12-Sep-2018 Instruction Type:Patient Education Patient Instructions Indication:Nonsmoker Start:12-Sep-2018 Instruction Type:Provider Instructions for Treatment How to access health informa tion online Indication:Acute sinusitis Start:27-Aug-2018 Instruction Type:Patient Education How to access health informa tion online - Detail Indication:Acute sinusitis Start:27-Aug-2018 Instruction Type:Patient Education Patient Instructions Indication:Acute sinusitis Start:27-Aug-2018 Instruction Type:Provider Instructions for Treatment How to access health informa tion online Indication:Nonsmoker Start:15-Dec-2017 Instruction Type:Patient Education How to access health informa tion online - Detail Indication:Nonsmoker Start:15-Dec-2017 Instruction Type:Patient Education Patient Instructions Indication:Nonsmoker Start:15-Dec-2017 Instruction Type:Provider Instructions for Treatment How to access health informa tion online Indication:Nonsmoker Start:23-Oct-2017 Instruction Type:Patient Education How to access health informa tion online - Detail Indication:Nonsmoker Start:23-Oct-2017 Instruction Type:Patient Education Patient Instructions Indication:Nonsmoker Start:23-Oct-2017 Instruction Type:Provider Instructions for Treatment How to access health informa tion online Indication:BMI between 19-24,adult Start:06-Jun-2017 Instruction Type:Patient Education How to access health informa tion online - Detail Indication:BMI between 19-24,adult Start:06-Jun-2017 Instruction Type:Patient Education Patient Instructions Indication:BMI between 19-24,adult Start:06-Jun-2017 Instruction Type:Provider Instructions for Treatment How to access health informa tion online Indication:Other hyperlipidemia Start:25-Jan-2017 Instruction Type:Patient Education How to access health informa tion online - Detail Indication:Other hyperlipidemia Start:25-Jan-2017 Instruction Type:Patient Education Patient Instructions Indication:Other hyperlipidemia Start:25-Jan-2017 Instruction Type:Provider Instructions for Treatment How to access health informa tion online Indication:BMI between 19-24,adult Start:19-Oct-2016 Instruction Type:Patient Education How to access health informa tion online - Detail Indication:BMI between 19-24,adult Start:19-Oct-2016 Instruction Type:Patient Education Patient Instructions Indication:BMI between 19-24,adult Start:19-Oct-2016 Instruction Type:Provider Instructions for Treatment How to access health informa tion online Indication:Postprandial abdominal bloating Start:04-May-2016 Instruction Type:Patient Education How to access health informa tion online - Detail Indication:Postprandial abdominal bloating Start:04-May-2016 Instruction Type:Patient Education Patient Instructions Indication:Postprandial abdominal bloating Start:04-May-2016 Instruction Type:Provider Instructions for Treatment How to access health informa tion online Indication:Other hyperlipidemia Start:02-Feb-2016 Instruction Type:Patient Education How to access health informa tion online - Detail Indication:Other hyperlipidemia Start:02-Feb-2016 Instruction Type:Patient Education Patient Instructions Indication:Other hyperlipidemia Start:02-Feb-2016 Instruction Type:Provider Instructions for Treatment How to access health informa tion online Indication:Weakness Start:01-Sep-2015 Instruction Type:Patient Education How to access health informa tion online - Detail Indication:Weakness Start:01-Sep-2015 Instruction Type:Patient Education Patient Instructions Indication:Weakness Start:01-Sep-2015 Instruction Type:Provider Instructions for Treatment Patient Instructions Indication:Rash (Renamed from Cutaneous eruption) Start:25-Aug-2015 Instruction Type:Provider Instructions for Treatment Patient Instructions Indication:Weakness Start:24-Aug-2015 Instruction Type:Provider Instructions for Treatment How to access health informa tion online Indication:Acute ethmoidal sinusitis, recurrence not specified Start:18-Aug-2015 Instruction Type:Patient Education How to access health informa tion online - Detail Indication:Acute ethmoidal sinusitis, recurrence not specified Start:18-Aug-2015 Instruction Type:Patient Education Patient Instructions Indication:Acute ethmoidal sinusitis, recurrence not specified Start:18-Aug-2015 Instruction Type:Provider Instructions for Treatment How to access health informa tion online Indication:Other hyperlipidemia Start:14-Jul-2015 Instruction Type:Patient Education How to access health informa tion online - Detail Indication:Other hyperlipidemia Start:14-Jul-2015 Instruction Type:Patient Education Patient Instructions Indication:Other hyperlipidemia Start:14-Jul-2015 Instruction Type:Provider Instructions for Treatment Patient Instructions Indication:Otitis media Start:15-Aug-2013 Instruction Type:Provider Instructions for Treatment Patient Instructions Indication:Family history of heart attack Start:05-Jul-2013 Instruction Type:Provider Instructions for Treatment [facility]; [facility] Work Phone: Instructions* Name Dates Details Patient Instructions Indication:[facility] EXAM Start:03-Jun-2022 Instruction Type:Provider Instructions for Treatment How to Access Health Informa tion Online using Patient Portal and [employer] Apps Indication:[facility] EXAM Start:03-Jun-2022 Instruction Type:Patient Education Patient Instructions Indication:COVID Start:21-Nov-2021 Instruction Type:Provider Instructions for Treatment Patient Instructions Indication:Polyp of skin Start:12-May-2021 Instruction Type:Provider Instructions for Treatment How to Access Health Informa tion Online using Patient Portal and [employer] Apps Indication:Polyp of skin Start:12-May-2021 Instruction Type:Patient Education Patient Instructions Indication:Nonsmoker Start:10-Nov-2020 Instruction Type:Provider Instructions for Treatment How to Access Health Informa tion Online using Patient Portal and [employer] Apps Indication:Nonsmoker Start:10-Nov-2020 Instruction Type:Patient Education How to access health informa tion online Indication:Vaginal irritation Start:23-Mar-2020 Instruction Type:Patient Education How to access health informa tion online - Detail Indication:Vaginal irritation Start:23-Mar-2020 Instruction Type:Patient Education Patient Instructions Indication:Vaginal irritation Start:23-Mar-2020 Instruction Type:Provider Instructions for Treatment How to access health informa tion online Indication:BMI 24.0-24.9, adult Start:08-Jan-2020 Instruction Type:Patient Education How to access health informa tion online - Detail Indication:BMI 24.0-24.9, adult Start:08-Jan-2020 Instruction Type:Patient Education Patient Instructions Indication:BMI 24.0-24.9, adult Start:08-Jan-2020 Instruction Type:Provider Instructions for Treatment How to access health informa tion online Indication:Nonsmoker Start:23-Sep-2019 Instruction Type:Patient Education How to access health informa tion online - Detail Indication:Nonsmoker Start:23-Sep-2019 Instruction Type:Patient Education Patient Instructions Indication:Nonsmoker Start:23-Sep-2019 Instruction Type:Provider Instructions for Treatment How to access health informa tion online Indication:Vaginal itching Start:09-Sep-2019 Instruction Type:Patient Education How to access health informa tion online - Detail Indication:Vaginal itching Start:09-Sep-2019 Instruction Type:Patient Education Patient Instructions Indication:Vaginal itching Start:09-Sep-2019 Instruction Type:Provider Instructions for Treatment How to access health informa tion online Indication:Postprandial abdominal bloating Start:06-Mar-2019 Instruction Type:Patient Education How to access health informa tion online - Detail Indication:Postprandial abdominal bloating Start:06-Mar-2019 Instruction Type:Patient Education Patient Instructions Indication:Postprandial abdominal bloating Start:06-Mar-2019 Instruction Type:Provider Instructions for Treatment How to access health informa tion online Indication:Nonsmoker Start:04-Jan-2019 Instruction Type:Patient Education How to access health informa tion online - Detail Indication:Nonsmoker Start:04-Jan-2019 Instruction Type:Patient Education Patient Instructions Indication:Nonsmoker Start:04-Jan-2019 Instruction Type:Provider Instructions for Treatment How to access health informa tion online Indication:Nonsmoker Start:12-Sep-2018 Instruction Type:Patient Education How to access health informa tion online - Detail Indication:Nonsmoker Start:12-Sep-2018 Instruction Type:Patient Education Patient Instructions Indication:Nonsmoker Start:12-Sep-2018 Instruction Type:Provider Instructions for Treatment How to access health informa tion online Indication:Acute sinusitis Start:27-Aug-2018 Instruction Type:Patient Education How to access health informa tion online - Detail Indication:Acute sinusitis Start:27-Aug-2018 Instruction Type:Patient Education Patient Instructions Indication:Acute sinusitis Start:27-Aug-2018 Instruction Type:Provider Instructions for Treatment How to access health informa tion online Indication:Nonsmoker Start:15-Dec-2017 Instruction Type:Patient Education How to access health informa tion online - Detail Indication:Nonsmoker Start:15-Dec-2017 Instruction Type:Patient Education Patient Instructions Indication:Nonsmoker Start:15-Dec-2017 Instruction Type:Provider Instructions for Treatment How to access health informa tion online Indication:Nonsmoker Start:23-Oct-2017 Instruction Type:Patient Education How to access health informa tion online - Detail Indication:Nonsmoker Start:23-Oct-2017 Instruction Type:Patient Education Patient Instructions Indication:Nonsmoker Start:23-Oct-2017 Instruction Type:Provider Instructions for Treatment How to access health informa tion online Indication:BMI between 19-24,adult Start:06-Jun-2017 Instruction Type:Patient Education How to access health informa tion online - Detail Indication:BMI between 19-24,adult Start:06-Jun-2017 Instruction Type:Patient Education Patient Instructions Indication:BMI between 19-24,adult Start:06-Jun-2017 Instruction Type:Provider Instructions for Treatment How to access health informa tion online Indication:Other hyperlipidemia Start:25-Jan-2017 Instruction Type:Patient Education How to access health informa tion online - Detail Indication:Other hyperlipidemia Start:25-Jan-2017 Instruction Type:Patient Education Patient Instructions Indication:Other hyperlipidemia Start:25-Jan-2017 Instruction Type:Provider Instructions for Treatment How to access health informa tion online Indication:BMI between 19-24,adult Start:19-Oct-2016 Instruction Type:Patient Education How to access health informa tion online - Detail Indication:BMI between 19-24,adult Start:19-Oct-2016 Instruction Type:Patient Education Patient Instructions Indication:BMI between 19-24,adult Start:19-Oct-2016 Instruction Type:Provider Instructions for Treatment How to access health informa tion online Indication:Postprandial abdominal bloating Start:04-May-2016 Instruction Type:Patient Education How to access health informa tion online - Detail Indication:Postprandial abdominal bloating Start:04-May-2016 Instruction Type:Patient Education Patient Instructions Indication:Postprandial abdominal bloating Start:04-May-2016 Instruction Type:Provider Instructions for Treatment How to access health informa tion online Indication:Other hyperlipidemia Start:02-Feb-2016 Instruction Type:Patient Education How to access health informa tion online - Detail Indication:Other hyperlipidemia Start:02-Feb-2016 Instruction Type:Patient Education Patient Instructions Indication:Other hyperlipidemia Start:02-Feb-2016 Instruction Type:Provider Instructions for Treatment How to access health informa tion online Indication:Weakness Start:01-Sep-2015 Instruction Type:Patient Education How to access health informa tion online - Detail Indication:Weakness Start:01-Sep-2015 Instruction Type:Patient Education Patient Instructions Indication:Weakness Start:01-Sep-2015 Instruction Type:Provider Instructions for Treatment Patient Instructions Indication:Rash (Renamed from Cutaneous eruption) Start:25-Aug-2015 Instruction Type:Provider Instructions for Treatment Patient Instructions Indication:Weakness Start:24-Aug-2015 Instruction Type:Provider Instructions for Treatment How to access health informa tion online Indication:Acute ethmoidal sinusitis, recurrence not specified Start:18-Aug-2015 Instruction Type:Patient Education How to access health informa tion online - Detail Indication:Acute ethmoidal sinusitis, recurrence not specified Start:18-Aug-2015 Instruction Type:Patient Education Patient Instructions Indication:Acute ethmoidal sinusitis, recurrence not specified Start:18-Aug-2015 Instruction Type:Provider Instructions for Treatment How to access health informa tion online Indication:Other hyperlipidemia Start:14-Jul-2015 Instruction Type:Patient Education How to access health informa tion online - Detail Indication:Other hyperlipidemia Start:14-Jul-2015 Instruction Type:Patient Education Patient Instructions Indication:Other hyperlipidemia Start:14-Jul-2015 Instruction Type:Provider Instructions for Treatment Patient Instructions Indication:Otitis media Start:15-Aug-2013 Instruction Type:Provider Instructions for Treatment Patient Instructions Indication:Family history of heart attack Start:05-Jul-2013 Instruction Type:Provider Instructions for Treatment [facility]; [facility] Work Phone: Instructions* Name Dates Details Patient Instructions Indication:Boil, buttock Start:14-Sep-2022 Instruction Type:Provider Instructions for Treatment How to Access Health Informa tion Online using Patient Portal and [employer] Apps Indication:Boil, buttock Start:14-Sep-2022 Instruction Type:Patient Education Patient Instructions Indication:[facility] EX[facility] Start:03-Jun-2022 Instruction Type:Provider Instructions for Treatment How to Access Health Informa tion Online using Patient Portal and [employer] Apps Indication:[facility] EX[facility] Start:03-Jun-2022 Instruction Type:Patient Education Patient Instructions Indication:COVID Start:21-Nov-2021 Instruction Type:Provider Instructions for Treatment Patient Instructions Indication:Polyp of skin Start:12-May-2021 Instruction Type:Provider Instructions for Treatment How to Access Health Informa tion Online using Patient Portal and [employer] Apps Indication:Polyp of skin Start:12-May-2021 Instruction Type:Patient Education Patient Instructions Indication:Nonsmoker Start:10-Nov-2020 Instruction Type:Provider Instructions for Treatment How to Access Health Informa tion Online using Patient Portal and [employer] Apps Indication:Nonsmoker Start:10-Nov-2020 Instruction Type:Patient Education How to access health informa tion online Indication:Vaginal irritation Start:23-Mar-2020 Instruction Type:Patient Education How to access health informa tion online - Detail Indication:Vaginal irritation Start:23-Mar-2020 Instruction Type:Patient Education Patient Instructions Indication:Vaginal irritation Start:23-Mar-2020 Instruction Type:Provider Instructions for Treatment How to access health informa tion online Indication:BMI 24.0-24.9, adult Start:08-Jan-2020 Instruction Type:Patient Education How to access health informa tion online - Detail Indication:BMI 24.0-24.9, adult Start:08-Jan-2020 Instruction Type:Patient Education Patient Instructions Indication:BMI 24.0-24.9, adult Start:08-Jan-2020 Instruction Type:Provider Instructions for Treatment How to access health informa tion online Indication:Nonsmoker Start:23-Sep-2019 Instruction Type:Patient Education How to access health informa tion online - Detail Indication:Nonsmoker Start:23-Sep-2019 Instruction Type:Patient Education Patient Instructions Indication:Nonsmoker Start:23-Sep-2019 Instruction Type:Provider Instructions for Treatment How to access health informa tion online Indication:Vaginal itching Start:09-Sep-2019 Instruction Type:Patient Education How to access health informa tion online - Detail Indication:Vaginal itching Start:09-Sep-2019 Instruction Type:Patient Education Patient Instructions Indication:Vaginal itching Start:09-Sep-2019 Instruction Type:Provider Instructions for Treatment How to access health informa tion online Indication:Postprandial abdominal bloating Start:06-Mar-2019 Instruction Type:Patient Education How to access health informa tion online - Detail Indication:Postprandial abdominal bloating Start:06-Mar-2019 Instruction Type:Patient Education Patient Instructions Indication:Postprandial abdominal bloating Start:06-Mar-2019 Instruction Type:Provider Instructions for Treatment How to access health informa tion online Indication:Nonsmoker Start:04-Jan-2019 Instruction Type:Patient Education How to access health informa tion online - Detail Indication:Nonsmoker Start:04-Jan-2019 Instruction Type:Patient Education Patient Instructions Indication:Nonsmoker Start:04-Jan-2019 Instruction Type:Provider Instructions for Treatment How to access health informa tion online Indication:Nonsmoker Start:12-Sep-2018 Instruction Type:Patient Education How to access health informa tion online - Detail Indication:Nonsmoker Start:12-Sep-2018 Instruction Type:Patient Education Patient Instructions Indication:Nonsmoker Start:12-Sep-2018 Instruction Type:Provider Instructions for Treatment How to access health informa tion online Indication:Acute sinusitis Start:27-Aug-2018 Instruction Type:Patient Education How to access health informa tion online - Detail Indication:Acute sinusitis Start:27-Aug-2018 Instruction Type:Patient Education Patient Instructions Indication:Acute sinusitis Start:27-Aug-2018 Instruction Type:Provider Instructions for Treatment How to access health informa tion online Indication:Nonsmoker Start:15-Dec-2017 Instruction Type:Patient Education How to access health informa tion online - Detail Indication:Nonsmoker Start:15-Dec-2017 Instruction Type:Patient Education Patient Instructions Indication:Nonsmoker Start:15-Dec-2017 Instruction Type:Provider Instructions for Treatment How to access health informa tion online Indication:Nonsmoker Start:23-Oct-2017 Instruction Type:Patient Education How to access health informa tion online - Detail Indication:Nonsmoker Start:23-Oct-2017 Instruction Type:Patient Education Patient Instructions Indication:Nonsmoker Start:23-Oct-2017 Instruction Type:Provider Instructions for Treatment How to access health informa tion online Indication:BMI between 19-24,adult Start:06-Jun-2017 Instruction Type:Patient Education How to access health informa tion online - Detail Indication:BMI between 19-24,adult Start:06-Jun-2017 Instruction Type:Patient Education Patient Instructions Indication:BMI between 19-24,adult Start:06-Jun-2017 Instruction Type:Provider Instructions for Treatment How to access health informa tion online Indication:Other hyperlipidemia Start:25-Jan-2017 Instruction Type:Patient Education How to access health informa tion online - Detail Indication:Other hyperlipidemia Start:25-Jan-2017 Instruction Type:Patient Education Patient Instructions Indication:Other hyperlipidemia Start:25-Jan-2017 Instruction Type:Provider Instructions for Treatment How to access health informa tion online Indication:BMI between 19-24,adult Start:19-Oct-2016 Instruction Type:Patient Education How to access health informa tion online - Detail Indication:BMI between 19-24,adult Start:19-Oct-2016 Instruction Type:Patient Education Patient Instructions Indication:BMI between 19-24,adult Start:19-Oct-2016 Instruction Type:Provider Instructions for Treatment How to access health informa tion online Indication:Postprandial abdominal bloating Start:04-May-2016 Instruction Type:Patient Education How to access health informa tion online - Detail Indication:Postprandial abdominal bloating Start:04-May-2016 Instruction Type:Patient Education Patient Instructions Indication:Postprandial abdominal bloating Start:04-May-2016 Instruction Type:Provider Instructions for Treatment How to access health informa tion online Indication:Other hyperlipidemia Start:02-Feb-2016 Instruction Type:Patient Education How to access health informa tion online - Detail Indication:Other hyperlipidemia Start:02-Feb-2016 Instruction Type:Patient Education Patient Instructions Indication:Other hyperlipidemia Start:02-Feb-2016 Instruction Type:Provider Instructions for Treatment How to access health informa tion online Indication:Weakness Start:01-Sep-2015 Instruction Type:Patient Education How to access health informa tion online - Detail Indication:Weakness Start:01-Sep-2015 Instruction Type:Patient Education Patient Instructions Indication:Weakness Start:01-Sep-2015 Instruction Type:Provider Instructions for Treatment Patient Instructions Indication:Rash (Renamed from Cutaneous eruption) Start:25-Aug-2015 Instruction Type:Provider Instructions for Treatment Patient Instructions Indication:Weakness Start:24-Aug-2015 Instruction Type:Provider Instructions for Treatment How to access health informa tion online Indication:Acute ethmoidal sinusitis, recurrence not specified Start:18-Aug-2015 Instruction Type:Patient Education How to access health informa tion online - Detail Indication:Acute ethmoidal sinusitis, recurrence not specified Start:18-Aug-2015 Instruction Type:Patient Education Patient Instructions Indication:Acute ethmoidal sinusitis, recurrence not specified Start:18-Aug-2015 Instruction Type:Provider Instructions for Treatment How to access health informa tion online Indication:Other hyperlipidemia Start:14-Jul-2015 Instruction Type:Patient Education How to access health informa tion online - Detail Indication:Other hyperlipidemia Start:14-Jul-2015 Instruction Type:Patient Education Patient Instructions Indication:Other hyperlipidemia Start:14-Jul-2015 Instruction Type:Provider Instructions for Treatment Patient Instructions Indication:Otitis media Start:15-Aug-2013 Instruction Type:Provider Instructions for Treatment Patient Instructions Indication:Family history of heart attack Start:05-Jul-2013 Instruction Type:Provider Instructions for Treatment [facility] Work Phone: Instructions* Name Dates Details Patient Instructions Indication:Boil, buttock Start:14-Sep-2022 Instruction Type:Provider Instructions for Treatment How to Access Health Informa tion Online using Patient Portal and [employer] Apps Indication:Boil, buttock Start:14-Sep-2022 Instruction Type:Patient Education Patient Instructions Indication:[facility] EX[facility] Start:03-Jun-2022 Instruction Type:Provider Instructions for Treatment How to Access Health Informa tion Online using Patient Portal and [employer] Apps Indication:[facility]LL[facility] EXAM Start:03-Jun-2022 Instruction Type:Patient Education Patient Instructions Indication:COVID Start:21-Nov-2021 Instruction Type:Provider Instructions for Treatment Patient Instructions Indication:Polyp of skin Start:12-May-2021 Instruction Type:Provider Instructions for Treatment How to Access Health Informa tion Online using Patient Portal and [employer] Apps Indication:Polyp of skin Start:12-May-2021 Instruction Type:Patient Education Patient Instructions Indication:Nonsmoker Start:10-Nov-2020 Instruction Type:Provider Instructions for Treatment How to Access Health Informa tion Online using Patient Portal and [employer] Apps Indication:Nonsmoker Start:10-Nov-2020 Instruction Type:Patient Education How to access health informa tion online Indication:Vaginal irritation Start:23-Mar-2020 Instruction Type:Patient Education How to access health informa tion online - Detail Indication:Vaginal irritation Start:23-Mar-2020 Instruction Type:Patient Education Patient Instructions Indication:Vaginal irritation Start:23-Mar-2020 Instruction Type:Provider Instructions for Treatment How to access health informa tion online Indication:BMI 24.0-24.9, adult Start:08-Jan-2020 Instruction Type:Patient Education How to access health informa tion online - Detail Indication:BMI 24.0-24.9, adult Start:08-Jan-2020 Instruction Type:Patient Education Patient Instructions Indication:BMI 24.0-24.9, adult Start:08-Jan-2020 Instruction Type:Provider Instructions for Treatment How to access health informa tion online Indication:Nonsmoker Start:23-Sep-2019 Instruction Type:Patient Education How to access health informa tion online - Detail Indication:Nonsmoker Start:23-Sep-2019 Instruction Type:Patient Education Patient Instructions Indication:Nonsmoker Start:23-Sep-2019 Instruction Type:Provider Instructions for Treatment How to access health informa tion online Indication:Vaginal itching Start:09-Sep-2019 Instruction Type:Patient Education How to access health informa tion online - Detail Indication:Vaginal itching Start:09-Sep-2019 Instruction Type:Patient Education Patient Instructions Indication:Vaginal itching Start:09-Sep-2019 Instruction Type:Provider Instructions for Treatment How to access health informa tion online Indication:Postprandial abdominal bloating Start:06-Mar-2019 Instruction Type:Patient Education How to access health informa tion online - Detail Indication:Postprandial abdominal bloating Start:06-Mar-2019 Instruction Type:Patient Education Patient Instructions Indication:Postprandial abdominal bloating Start:06-Mar-2019 Instruction Type:Provider Instructions for Treatment How to access health informa tion online Indication:Nonsmoker Start:04-Jan-2019 Instruction Type:Patient Education How to access health informa tion online - Detail Indication:Nonsmoker Start:04-Jan-2019 Instruction Type:Patient Education Patient Instructions Indication:Nonsmoker Start:04-Jan-2019 Instruction Type:Provider Instructions for Treatment How to access health informa tion online Indication:Nonsmoker Start:12-Sep-2018 Instruction Type:Patient Education How to access health informa tion online - Detail Indication:Nonsmoker Start:12-Sep-2018 Instruction Type:Patient Education Patient Instructions Indication:Nonsmoker Start:12-Sep-2018 Instruction Type:Provider Instructions for Treatment How to access health informa tion online Indication:Acute sinusitis Start:27-Aug-2018 Instruction Type:Patient Education How to access health informa tion online - Detail Indication:Acute sinusitis Start:27-Aug-2018 Instruction Type:Patient Education Patient Instructions Indication:Acute sinusitis Start:27-Aug-2018 Instruction Type:Provider Instructions for Treatment How to access health informa tion online Indication:Nonsmoker Start:15-Dec-2017 Instruction Type:Patient Education How to access health informa tion online - Detail Indication:Nonsmoker Start:15-Dec-2017 Instruction Type:Patient Education Patient Instructions Indication:Nonsmoker Start:15-Dec-2017 Instruction Type:Provider Instructions for Treatment How to access health informa tion online Indication:Nonsmoker Start:23-Oct-2017 Instruction Type:Patient Education How to access health informa tion online - Detail Indication:Nonsmoker Start:23-Oct-2017 Instruction Type:Patient Education Patient Instructions Indication:Nonsmoker Start:23-Oct-2017 Instruction Type:Provider Instructions for Treatment How to access health informa tion online Indication:BMI between 19-24,adult Start:06-Jun-2017 Instruction Type:Patient Education How to access health informa tion online - Detail Indication:BMI between 19-24,adult Start:06-Jun-2017 Instruction Type:Patient Education Patient Instructions Indication:BMI between 19-24,adult Start:06-Jun-2017 Instruction Type:Provider Instructions for Treatment How to access health informa tion online Indication:Other hyperlipidemia Start:25-Jan-2017 Instruction Type:Patient Education How to access health informa tion online - Detail Indication:Other hyperlipidemia Start:25-Jan-2017 Instruction Type:Patient Education Patient Instructions Indication:Other hyperlipidemia Start:25-Jan-2017 Instruction Type:Provider Instructions for Treatment How to access health informa tion online Indication:BMI between 19-24,adult Start:19-Oct-2016 Instruction Type:Patient Education How to access health informa tion online - Detail Indication:BMI between 19-24,adult Start:19-Oct-2016 Instruction Type:Patient Education Patient Instructions Indication:BMI between 19-24,adult Start:19-Oct-2016 Instruction Type:Provider Instructions for Treatment How to access health informa tion online Indication:Postprandial abdominal bloating Start:04-May-2016 Instruction Type:Patient Education How to access health informa tion online - Detail Indication:Postprandial abdominal bloating Start:04-May-2016 Instruction Type:Patient Education Patient Instructions Indication:Postprandial abdominal bloating Start:04-May-2016 Instruction Type:Provider Instructions for Treatment How to access health informa tion online Indication:Other hyperlipidemia Start:02-Feb-2016 Instruction Type:Patient Education How to access health informa tion online - Detail Indication:Other hyperlipidemia Start:02-Feb-2016 Instruction Type:Patient Education Patient Instructions Indication:Other hyperlipidemia Start:02-Feb-2016 Instruction Type:Provider Instructions for Treatment How to access health informa tion online Indication:Weakness Start:01-Sep-2015 Instruction Type:Patient Education How to access health informa tion online - Detail Indication:Weakness Start:01-Sep-2015 Instruction Type:Patient Education Patient Instructions Indication:Weakness Start:01-Sep-2015 Instruction Type:Provider Instructions for Treatment Patient Instructions Indication:Rash (Renamed from Cutaneous eruption) Start:25-Aug-2015 Instruction Type:Provider Instructions for Treatment Patient Instructions Indication:Weakness Start:24-Aug-2015 Instruction Type:Provider Instructions for Treatment How to access health informa tion online Indication:Acute ethmoidal sinusitis, recurrence not specified Start:18-Aug-2015 Instruction Type:Patient Education How to access health informa tion online - Detail Indication:Acute ethmoidal sinusitis, recurrence not specified Start:18-Aug-2015 Instruction Type:Patient Education Patient Instructions Indication:Acute ethmoidal sinusitis, recurrence not specified Start:18-Aug-2015 Instruction Type:Provider Instructions for Treatment How to access health informa tion online Indication:Other hyperlipidemia Start:14-Jul-2015 Instruction Type:Patient Education How to access health informa tion online - Detail Indication:Other hyperlipidemia Start:14-Jul-2015 Instruction Type:Patient Education Patient Instructions Indication:Other hyperlipidemia Start:14-Jul-2015 Instruction Type:Provider Instructions for Treatment Patient Instructions Indication:Otitis media Start:15-Aug-2013 Instruction Type:Provider Instructions for Treatment Patient Instructions Indication:Family history of heart attack Start:05-Jul-2013 Instruction Type:Provider Instructions for Treatment [facility]; [facility] Work Phone: Instructions* Name Dates Details Patient Instructions Indication:Boil, buttock Start:14-Sep-2022 Instruction Type:Provider Instructions for Treatment How to Access Health Informa tion Online using Patient Portal and [employer]rd [employer] Apps Indication:Boil, buttock Start:14-Sep-2022 Instruction Type:Patient Education Patient Instructions Indication:[facility] EX[facility] Start:03-Jun-2022 Instruction Type:Provider Instructions for Treatment How to Access Health Informa tion Online using Patient Portal and [employer]rd [employer] Apps Indication:[facility] Start:03-Jun-2022 Instruction Type:Patient Education Patient Instructions Indication:COVID Start:21-Nov-2021 Instruction Type:Provider Instructions for Treatment Patient Instructions Indication:Polyp of skin Start:12-May-2021 Instruction Type:Provider Instructions for Treatment How to Access Health Informa tion Online using Patient Portal and [employer]rd [employer] Apps Indication:Polyp of skin Start:12-May-2021 Instruction Type:Patient Education Patient Instructions Indication:Nonsmoker Start:10-Nov-2020 Instruction Type:Provider Instructions for Treatment How to Access Health Informa tion Online using Patient Portal and [employer]rd [employer] Apps Indication:Nonsmoker Start:10-Nov-2020 Instruction Type:Patient Education How to access health informa tion online Indication:Vaginal irritation Start:23-Mar-2020 Instruction Type:Patient Education How to access health informa tion online - Detail Indication:Vaginal irritation Start:23-Mar-2020 Instruction Type:Patient Education Patient Instructions Indication:Vaginal irritation Start:23-Mar-2020 Instruction Type:Provider Instructions for Treatment How to access health informa tion online Indication:BMI 24.0-24.9, adult Start:08-Jan-2020 Instruction Type:Patient Education How to access health informa tion online - Detail Indication:BMI 24.0-24.9, adult Start:08-Jan-2020 Instruction Type:Patient Education Patient Instructions Indication:BMI 24.0-24.9, adult Start:08-Jan-2020 Instruction Type:Provider Instructions for Treatment How to access health informa tion online Indication:Nonsmoker Start:23-Sep-2019 Instruction Type:Patient Education How to access health informa tion online - Detail Indication:Nonsmoker Start:23-Sep-2019 Instruction Type:Patient Education Patient Instructions Indication:Nonsmoker Start:23-Sep-2019 Instruction Type:Provider Instructions for Treatment How to access health informa tion online Indication:Vaginal itching Start:09-Sep-2019 Instruction Type:Patient Education How to access health informa tion online - Detail Indication:Vaginal itching Start:09-Sep-2019 Instruction Type:Patient Education Patient Instructions Indication:Vaginal itching Start:09-Sep-2019 Instruction Type:Provider Instructions for Treatment How to access health informa tion online Indication:Postprandial abdominal bloating Start:06-Mar-2019 Instruction Type:Patient Education How to access health informa tion online - Detail Indication:Postprandial abdominal bloating Start:06-Mar-2019 Instruction Type:Patient Education Patient Instructions Indication:Postprandial abdominal bloating Start:06-Mar-2019 Instruction Type:Provider Instructions for Treatment How to access health informa tion online Indication:Nonsmoker Start:04-Jan-2019 Instruction Type:Patient Education How to access health informa tion online - Detail Indication:Nonsmoker Start:04-Jan-2019 Instruction Type:Patient Education Patient Instructions Indication:Nonsmoker Start:04-Jan-2019 Instruction Type:Provider Instructions for Treatment How to access health informa tion online Indication:Nonsmoker Start:12-Sep-2018 Instruction Type:Patient Education How to access health informa tion online - Detail Indication:Nonsmoker Start:12-Sep-2018 Instruction Type:Patient Education Patient Instructions Indication:Nonsmoker Start:12-Sep-2018 Instruction Type:Provider Instructions for Treatment How to access health informa tion online Indication:Acute sinusitis Start:27-Aug-2018 Instruction Type:Patient Education How to access health informa tion online - Detail Indication:Acute sinusitis Start:27-Aug-2018 Instruction Type:Patient Education Patient Instructions Indication:Acute sinusitis Start:27-Aug-2018 Instruction Type:Provider Instructions for Treatment How to access health informa tion online Indication:Nonsmoker Start:15-Dec-2017 Instruction Type:Patient Education How to access health informa tion online - Detail Indication:Nonsmoker Start:15-Dec-2017 Instruction Type:Patient Education Patient Instructions Indication:Nonsmoker Start:15-Dec-2017 Instruction Type:Provider Instructions for Treatment How to access health informa tion online Indication:Nonsmoker Start:23-Oct-2017 Instruction Type:Patient Education How to access health informa tion online - Detail Indication:Nonsmoker Start:23-Oct-2017 Instruction Type:Patient Education Patient Instructions Indication:Nonsmoker Start:23-Oct-2017 Instruction Type:Provider Instructions for Treatment How to access health informa tion online Indication:BMI between 19-24,adult Start:06-Jun-2017 Instruction Type:Patient Education How to access health informa tion online - Detail Indication:BMI between 19-24,adult Start:06-Jun-2017 Instruction Type:Patient Education Patient Instructions Indication:BMI between 19-24,adult Start:06-Jun-2017 Instruction Type:Provider Instructions for Treatment How to access health informa tion online Indication:Other hyperlipidemia Start:25-Jan-2017 Instruction Type:Patient Education How to access health informa tion online - Detail Indication:Other hyperlipidemia Start:25-Jan-2017 Instruction Type:Patient Education Patient Instructions Indication:Other hyperlipidemia Start:25-Jan-2017 Instruction Type:Provider Instructions for Treatment How to access health informa tion online Indication:BMI between 19-24,adult Start:19-Oct-2016 Instruction Type:Patient Education How to access health informa tion online - Detail Indication:BMI between 19-24,adult Start:19-Oct-2016 Instruction Type:Patient Education Patient Instructions Indication:BMI between 19-24,adult Start:19-Oct-2016 Instruction Type:Provider Instructions for Treatment How to access health informa tion online Indication:Postprandial abdominal bloating Start:04-May-2016 Instruction Type:Patient Education How to access health informa tion online - Detail Indication:Postprandial abdominal bloating Start:04-May-2016 Instruction Type:Patient Education Patient Instructions Indication:Postprandial abdominal bloating Start:04-May-2016 Instruction Type:Provider Instructions for Treatment How to access health informa tion online Indication:Other hyperlipidemia Start:02-Feb-2016 Instruction Type:Patient Education How to access health informa tion online - Detail Indication:Other hyperlipidemia Start:02-Feb-2016 Instruction Type:Patient Education Patient Instructions Indication:Other hyperlipidemia Start:02-Feb-2016 Instruction Type:Provider Instructions for Treatment How to access health informa tion online Indication:Weakness Start:01-Sep-2015 Instruction Type:Patient Education How to access health informa tion online - Detail Indication:Weakness Start:01-Sep-2015 Instruction Type:Patient Education Patient Instructions Indication:Weakness Start:01-Sep-2015 Instruction Type:Provider Instructions for Treatment Patient Instructions Indication:Rash (Renamed from Cutaneous eruption) Start:25-Aug-2015 Instruction Type:Provider Instructions for Treatment Patient Instructions Indication:Weakness Start:24-Aug-2015 Instruction Type:Provider Instructions for Treatment How to access health informa tion online Indication:Acute ethmoidal sinusitis, recurrence not specified Start:18-Aug-2015 Instruction Type:Patient Education How to access health informa tion online - Detail Indication:Acute ethmoidal sinusitis, recurrence not specified Start:18-Aug-2015 Instruction Type:Patient Education Patient Instructions Indication:Acute ethmoidal sinusitis, recurrence not specified Start:18-Aug-2015 Instruction Type:Provider Instructions for Treatment How to access health informa tion online Indication:Other hyperlipidemia Start:14-Jul-2015 Instruction Type:Patient Education How to access health informa tion online - Detail Indication:Other hyperlipidemia Start:14-Jul-2015 Instruction Type:Patient Education Patient Instructions Indication:Other hyperlipidemia Start:14-Jul-2015 Instruction Type:Provider Instructions for Treatment Patient Instructions Indication:Otitis media Start:15-Aug-2013 Instruction Type:Provider Instructions for Treatment Patient Instructions Indication:Family history of heart attack Start:05-Jul-2013 Instruction Type:Provider Instructions for Treatment [facility]; [facility] Work Phone: Instructions* Name Dates Details Patient Instructions Indication:Boil, buttock Start:14-Sep-2022 Instruction Type:Provider Instructions for Treatment How to Access Health Informa tion Online using Patient Portal and [employer]rd [employer] Apps Indication:Boil, buttock Start:14-Sep-2022 Instruction Type:Patient Education Patient Instructions Indication:[facility] Start:03-Jun-2022 Instruction Type:Provider Instructions for Treatment How to Access Health Informa tion Online using Patient Portal and [employer]rd [employer] Apps Indication:[facility] Start:03-Jun-2022 Instruction Type:Patient Education Patient Instructions Indication:COVID Start:21-Nov-2021 Instruction Type:Provider Instructions for Treatment Patient Instructions Indication:Polyp of skin Start:12-May-2021 Instruction Type:Provider Instructions for Treatment How to Access Health Informa tion Online using Patient Portal and [employer]rd [employer] Apps Indication:Polyp of skin Start:12-May-2021 Instruction Type:Patient Education Patient Instructions Indication:Nonsmoker Start:10-Nov-2020 Instruction Type:Provider Instructions for Treatment How to Access Health Informa tion Online using Patient Portal and [employer]rd [employer] Apps Indication:Nonsmoker Start:10-Nov-2020 Instruction Type:Patient Education How to access health informa tion online Indication:Vaginal irritation Start:23-Mar-2020 Instruction Type:Patient Education How to access health informa tion online - Detail Indication:Vaginal irritation Start:23-Mar-2020 Instruction Type:Patient Education Patient Instructions Indication:Vaginal irritation Start:23-Mar-2020 Instruction Type:Provider Instructions for Treatment How to access health informa tion online Indication:BMI 24.0-24.9, adult Start:08-Jan-2020 Instruction Type:Patient Education How to access health informa tion online - Detail Indication:BMI 24.0-24.9, adult Start:08-Jan-2020 Instruction Type:Patient Education Patient Instructions Indication:BMI 24.0-24.9, adult Start:08-Jan-2020 Instruction Type:Provider Instructions for Treatment How to access health informa tion online Indication:Nonsmoker Start:23-Sep-2019 Instruction Type:Patient Education How to access health informa tion online - Detail Indication:Nonsmoker Start:23-Sep-2019 Instruction Type:Patient Education Patient Instructions Indication:Nonsmoker Start:23-Sep-2019 Instruction Type:Provider Instructions for Treatment How to access health informa tion online Indication:Vaginal itching Start:09-Sep-2019 Instruction Type:Patient Education How to access health informa tion online - Detail Indication:Vaginal itching Start:09-Sep-2019 Instruction Type:Patient Education Patient Instructions Indication:Vaginal itching Start:09-Sep-2019 Instruction Type:Provider Instructions for Treatment How to access health informa tion online Indication:Postprandial abdominal bloating Start:06-Mar-2019 Instruction Type:Patient Education How to access health informa tion online - Detail Indication:Postprandial abdominal bloating Start:06-Mar-2019 Instruction Type:Patient Education Patient Instructions Indication:Postprandial abdominal bloating Start:06-Mar-2019 Instruction Type:Provider Instructions for Treatment How to access health informa tion online Indication:Nonsmoker Start:04-Jan-2019 Instruction Type:Patient Education How to access health informa tion online - Detail Indication:Nonsmoker Start:04-Jan-2019 Instruction Type:Patient Education Patient Instructions Indication:Nonsmoker Start:04-Jan-2019 Instruction Type:Provider Instructions for Treatment How to access health informa tion online Indication:Nonsmoker Start:12-Sep-2018 Instruction Type:Patient Education How to access health informa tion online - Detail Indication:Nonsmoker Start:12-Sep-2018 Instruction Type:Patient Education Patient Instructions Indication:Nonsmoker Start:12-Sep-2018 Instruction Type:Provider Instructions for Treatment How to access health informa tion online Indication:Acute sinusitis Start:27-Aug-2018 Instruction Type:Patient Education How to access health informa tion online - Detail Indication:Acute sinusitis Start:27-Aug-2018 Instruction Type:Patient Education Patient Instructions Indication:Acute sinusitis Start:27-Aug-2018 Instruction Type:Provider Instructions for Treatment How to access health informa tion online Indication:Nonsmoker Start:15-Dec-2017 Instruction Type:Patient Education How to access health informa tion online - Detail Indication:Nonsmoker Start:15-Dec-2017 Instruction Type:Patient Education Patient Instructions Indication:Nonsmoker Start:15-Dec-2017 Instruction Type:Provider Instructions for Treatment How to access health informa tion online Indication:Nonsmoker Start:23-Oct-2017 Instruction Type:Patient Education How to access health informa tion online - Detail Indication:Nonsmoker Start:23-Oct-2017 Instruction Type:Patient Education Patient Instructions Indication:Nonsmoker Start:23-Oct-2017 Instruction Type:Provider Instructions for Treatment How to access health informa tion online Indication:BMI between 19-24,adult Start:06-Jun-2017 Instruction Type:Patient Education How to access health informa tion online - Detail Indication:BMI between 19-24,adult Start:06-Jun-2017 Instruction Type:Patient Education Patient Instructions Indication:BMI between 19-24,adult Start:06-Jun-2017 Instruction Type:Provider Instructions for Treatment How to access health informa tion online Start:25-Jan-2017 Instruction Type:Patient Education How to access health informa tion online - Detail Start:25-Jan-2017 Instruction Type:Patient Education Patient Instructions Start:25-Jan-2017 Instruction Type:Provider Instructions for Treatment How to access health informa tion online Indication:BMI between 19-24,adult Start:19-Oct-2016 Instruction Type:Patient Education How to access health informa tion online - Detail Indication:BMI between 19-24,adult Start:19-Oct-2016 Instruction Type:Patient Education Patient Instructions Indication:BMI between 19-24,adult Start:19-Oct-2016 Instruction Type:Provider Instructions for Treatment How to access health informa tion online Indication:Postprandial abdominal bloating Start:04-May-2016 Instruction Type:Patient Education How to access health informa tion online - Detail Indication:Postprandial abdominal bloating Start:04-May-2016 Instruction Type:Patient Education Patient Instructions Indication:Postprandial abdominal bloating Start:04-May-2016 Instruction Type:Provider Instructions for Treatment How to access health informa tion online Indication:Other hyperlipidemia Start:02-Feb-2016 Instruction Type:Patient Education How to access health informa tion online - Detail Indication:Other hyperlipidemia Start:02-Feb-2016 Instruction Type:Patient Education Patient Instructions Indication:Other hyperlipidemia Start:02-Feb-2016 Instruction Type:Provider Instructions for Treatment How to access health informa tion online Indication:Weakness Start:01-Sep-2015 Instruction Type:Patient Education How to access health informa tion online - Detail Indication:Weakness Start:01-Sep-2015 Instruction Type:Patient Education Patient Instructions Indication:Weakness Start:01-Sep-2015 Instruction Type:Provider Instructions for Treatment Patient Instructions Indication:Rash (Renamed from Cutaneous eruption) Start:25-Aug-2015 Instruction Type:Provider Instructions for Treatment Patient Instructions Indication:Weakness Start:24-Aug-2015 Instruction Type:Provider Instructions for Treatment How to access health informa tion online Indication:Acute ethmoidal sinusitis, recurrence not specified Start:18-Aug-2015 Instruction Type:Patient Education How to access health informa tion online - Detail Indication:Acute ethmoidal sinusitis, recurrence not specified Start:18-Aug-2015 Instruction Type:Patient Education Patient Instructions Indication:Acute ethmoidal sinusitis, recurrence not specified Start:18-Aug-2015 Instruction Type:Provider Instructions for Treatment How to access health informa tion online Indication:Other hyperlipidemia Start:14-Jul-2015 Instruction Type:Patient Education How to access health informa tion online - Detail Indication:Other hyperlipidemia Start:14-Jul-2015 Instruction Type:Patient Education Patient Instructions Indication:Other hyperlipidemia Start:14-Jul-2015 Instruction Type:Provider Instructions for Treatment Patient Instructions Indication:Otitis media Start:15-Aug-2013 Instruction Type:Provider Instructions for Treatment Patient Instructions Indication:Family history of heart attack Start:05-Jul-2013 Instruction Type:Provider Instructions for Treatment [facility]; [facility] Work Phone: Instructions* Name Dates Details Patient Instructions Indication:[facility] Start:24-Apr-2023 Instruction Type:Provider Instructions for Treatment How to Access Health Informa tion Online using Patient Portal and [employer]rd [employer] Apps Indication:[facility] Start:24-Apr-2023 Instruction Type:Patient Education Patient Instructions Indication:Boil, buttock Start:14-Sep-2022 Instruction Type:Provider Instructions for Treatment How to Access Health Informa tion Online using Patient Portal and [employer]rd [employer] Apps Indication:Boil, buttock Start:14-Sep-2022 Instruction Type:Patient Education Patient Instructions Indication:[facility] Start:03-Jun-2022 Instruction Type:Provider Instructions for Treatment How to Access Health Informa tion Online using Patient Portal and [employer]rd [employer] Apps Indication:[facility] Start:03-Jun-2022 Instruction Type:Patient Education Patient Instructions Indication:COVID Start:21-Nov-2021 Instruction Type:Provider Instructions for Treatment Patient Instructions Indication:Polyp of skin Start:12-May-2021 Instruction Type:Provider Instructions for Treatment How to Access Health Informa tion Online using Patient Portal and [employer]rd [employer] Apps Indication:Polyp of skin Start:12-May-2021 Instruction Type:Patient Education Patient Instructions Indication:Nonsmoker Start:10-Nov-2020 Instruction Type:Provider Instructions for Treatment How to Access Health Informa tion Online using Patient Portal and [employer]rd [employer] Apps Indication:Nonsmoker Start:10-Nov-2020 Instruction Type:Patient Education How to access health informa tion online Indication:Vaginal irritation Start:23-Mar-2020 Instruction Type:Patient Education How to access health informa tion online - Detail Indication:Vaginal irritation Start:23-Mar-2020 Instruction Type:Patient Education Patient Instructions Indication:Vaginal irritation Start:23-Mar-2020 Instruction Type:Provider Instructions for Treatment How to access health informa tion online Indication:BMI 24.0-24.9, adult Start:08-Jan-2020 Instruction Type:Patient Education How to access health informa tion online - Detail Indication:BMI 24.0-24.9, adult Start:08-Jan-2020 Instruction Type:Patient Education Patient Instructions Indication:BMI 24.0-24.9, adult Start:08-Jan-2020 Instruction Type:Provider Instructions for Treatment How to access health informa tion online Indication:Nonsmoker Start:23-Sep-2019 Instruction Type:Patient Education How to access health informa tion online - Detail Indication:Nonsmoker Start:23-Sep-2019 Instruction Type:Patient Education Patient Instructions Indication:Nonsmoker Start:23-Sep-2019 Instruction Type:Provider Instructions for Treatment How to access health informa tion online Indication:Vaginal itching Start:09-Sep-2019 Instruction Type:Patient Education How to access health informa tion online - Detail Indication:Vaginal itching Start:09-Sep-2019 Instruction Type:Patient Education Patient Instructions Indication:Vaginal itching Start:09-Sep-2019 Instruction Type:Provider Instructions for Treatment How to access health informa tion online Indication:Postprandial abdominal bloating Start:06-Mar-2019 Instruction Type:Patient Education How to access health informa tion online - Detail Indication:Postprandial abdominal bloating Start:06-Mar-2019 Instruction Type:Patient Education Patient Instructions Indication:Postprandial abdominal bloating Start:06-Mar-2019 Instruction Type:Provider Instructions for Treatment How to access health informa tion online Indication:Nonsmoker Start:04-Jan-2019 Instruction Type:Patient Education How to access health informa tion online - Detail Indication:Nonsmoker Start:04-Jan-2019 Instruction Type:Patient Education Patient Instructions Indication:Nonsmoker Start:04-Jan-2019 Instruction Type:Provider Instructions for Treatment How to access health informa tion online Indication:Nonsmoker Start:12-Sep-2018 Instruction Type:Patient Education How to access health informa tion online - Detail Indication:Nonsmoker Start:12-Sep-2018 Instruction Type:Patient Education Patient Instructions Indication:Nonsmoker Start:12-Sep-2018 Instruction Type:Provider Instructions for Treatment How to access health informa tion online Indication:Acute sinusitis Start:27-Aug-2018 Instruction Type:Patient Education How to access health informa tion online - Detail Indication:Acute sinusitis Start:27-Aug-2018 Instruction Type:Patient Education Patient Instructions Indication:Acute sinusitis Start:27-Aug-2018 Instruction Type:Provider Instructions for Treatment How to access health informa tion online Indication:Nonsmoker Start:15-Dec-2017 Instruction Type:Patient Education How to access health informa tion online - Detail Indication:Nonsmoker Start:15-Dec-2017 Instruction Type:Patient Education Patient Instructions Indication:Nonsmoker Start:15-Dec-2017 Instruction Type:Provider Instructions for Treatment How to access health informa tion online Indication:Nonsmoker Start:23-Oct-2017 Instruction Type:Patient Education How to access health informa tion online - Detail Indication:Nonsmoker Start:23-Oct-2017 Instruction Type:Patient Education Patient Instructions Indication:Nonsmoker Start:23-Oct-2017 Instruction Type:Provider Instructions for Treatment How to access health informa tion online Indication:BMI between 19-24,adult Start:06-Jun-2017 Instruction Type:Patient Education How to access health informa tion online - Detail Indication:BMI between 19-24,adult Start:06-Jun-2017 Instruction Type:Patient Education Patient Instructions Indication:BMI between 19-24,adult Start:06-Jun-2017 Instruction Type:Provider Instructions for Treatment How to access health informa tion online Indication:Other hyperlipidemia Start:25-Jan-2017 Instruction Type:Patient Education How to access health informa tion online - Detail Indication:Other hyperlipidemia Start:25-Jan-2017 Instruction Type:Patient Education Patient Instructions Indication:Other hyperlipidemia Start:25-Jan-2017 Instruction Type:Provider Instructions for Treatment How to access health informa tion online Indication:BMI between 19-24,adult Start:19-Oct-2016 Instruction Type:Patient Education How to access health informa tion online - Detail Indication:BMI between 19-24,adult Start:19-Oct-2016 Instruction Type:Patient Education Patient Instructions Indication:BMI between 19-24,adult Start:19-Oct-2016 Instruction Type:Provider Instructions for Treatment How to access health informa tion online Indication:Postprandial abdominal bloating Start:04-May-2016 Instruction Type:Patient Education How to access health informa tion online - Detail Indication:Postprandial abdominal bloating Start:04-May-2016 Instruction Type:Patient Education Patient Instructions Indication:Postprandial abdominal bloating Start:04-May-2016 Instruction Type:Provider Instructions for Treatment How to access health informa tion online Indication:Other hyperlipidemia Start:02-Feb-2016 Instruction Type:Patient Education How to access health informa tion online - Detail Indication:Other hyperlipidemia Start:02-Feb-2016 Instruction Type:Patient Education Patient Instructions Indication:Other hyperlipidemia Start:02-Feb-2016 Instruction Type:Provider Instructions for Treatment How to access health informa tion online Indication:Weakness Start:01-Sep-2015 Instruction Type:Patient Education How to access health informa tion online - Detail Indication:Weakness Start:01-Sep-2015 Instruction Type:Patient Education Patient Instructions Indication:Weakness Start:01-Sep-2015 Instruction Type:Provider Instructions for Treatment Patient Instructions Indication:Rash (Renamed from Cutaneous eruption) Start:25-Aug-2015 Instruction Type:Provider Instructions for Treatment Patient Instructions Indication:Weakness Start:24-Aug-2015 Instruction Type:Provider Instructions for Treatment How to access health informa tion online Indication:Acute ethmoidal sinusitis, recurrence not specified Start:18-Aug-2015 Instruction Type:Patient Education How to access health informa tion online - Detail Indication:Acute ethmoidal sinusitis, recurrence not specified Start:18-Aug-2015 Instruction Type:Patient Education Patient Instructions Indication:Acute ethmoidal sinusitis, recurrence not specified Start:18-Aug-2015 Instruction Type:Provider Instructions for Treatment How to access health informa tion online Indication:Other hyperlipidemia Start:14-Jul-2015 Instruction Type:Patient Education How to access health informa tion online - Detail Indication:Other hyperlipidemia Start:14-Jul-2015 Instruction Type:Patient Education Patient Instructions Indication:Other hyperlipidemia Start:14-Jul-2015 Instruction Type:Provider Instructions for Treatment Patient Instructions Indication:Otitis media Start:15-Aug-2013 Instruction Type:Provider Instructions for Treatment Patient Instructions Indication:Family history of heart attack Start:05-Jul-2013 Instruction Type:Provider Instructions for Treatment [facility]; [facility] Work Phone: Instructions* Name Dates Details Patient Instructions Indication:[facility] EXAM Start:24-Apr-2023 Instruction Type:Provider Instructions for Treatment How to Access Health Informa tion Online using Patient Portal and [employer] Apps Indication:[facility] EX[facility] Start:24-Apr-2023 Instruction Type:Patient Education Patient Instructions Indication:Boil, buttock Start:14-Sep-2022 Instruction Type:Provider Instructions for Treatment How to Access Health Informa tion Online using Patient Portal and [employer] Apps Indication:Boil, buttock Start:14-Sep-2022 Instruction Type:Patient Education Patient Instructions Indication:[facility] EX[facility] Start:03-Jun-2022 Instruction Type:Provider Instructions for Treatment How to Access Health Informa tion Online using Patient Portal and [employer] Apps Indication:[facility] EX[facility] Start:03-Jun-2022 Instruction Type:Patient Education Patient Instructions Indication:COVID Start:21-Nov-2021 Instruction Type:Provider Instructions for Treatment Patient Instructions Indication:Polyp of skin Start:12-May-2021 Instruction Type:Provider Instructions for Treatment How to Access Health Informa tion Online using Patient Portal and [employer] Apps Indication:Polyp of skin Start:12-May-2021 Instruction Type:Patient Education Patient Instructions Indication:Nonsmoker Start:10-Nov-2020 Instruction Type:Provider Instructions for Treatment How to Access Health Informa tion Online using Patient Portal and [employer] Apps Indication:Nonsmoker Start:10-Nov-2020 Instruction Type:Patient Education How to access health informa tion online Indication:Vaginal irritation Start:23-Mar-2020 Instruction Type:Patient Education How to access health informa tion online - Detail Indication:Vaginal irritation Start:23-Mar-2020 Instruction Type:Patient Education Patient Instructions Indication:Vaginal irritation Start:23-Mar-2020 Instruction Type:Provider Instructions for Treatment How to access health informa tion online Indication:BMI 24.0-24.9, adult Start:08-Jan-2020 Instruction Type:Patient Education How to access health informa tion online - Detail Indication:BMI 24.0-24.9, adult Start:08-Jan-2020 Instruction Type:Patient Education Patient Instructions Indication:BMI 24.0-24.9, adult Start:08-Jan-2020 Instruction Type:Provider Instructions for Treatment How to access health informa tion online Indication:Nonsmoker Start:23-Sep-2019 Instruction Type:Patient Education How to access health informa tion online - Detail Indication:Nonsmoker Start:23-Sep-2019 Instruction Type:Patient Education Patient Instructions Indication:Nonsmoker Start:23-Sep-2019 Instruction Type:Provider Instructions for Treatment How to access health informa tion online Indication:Vaginal itching Start:09-Sep-2019 Instruction Type:Patient Education How to access health informa tion online - Detail Indication:Vaginal itching Start:09-Sep-2019 Instruction Type:Patient Education Patient Instructions Indication:Vaginal itching Start:09-Sep-2019 Instruction Type:Provider Instructions for Treatment How to access health informa tion online Indication:Postprandial abdominal bloating Start:06-Mar-2019 Instruction Type:Patient Education How to access health informa tion online - Detail Indication:Postprandial abdominal bloating Start:06-Mar-2019 Instruction Type:Patient Education Patient Instructions Indication:Postprandial abdominal bloating Start:06-Mar-2019 Instruction Type:Provider Instructions for Treatment How to access health informa tion online Indication:Nonsmoker Start:04-Jan-2019 Instruction Type:Patient Education How to access health informa tion online - Detail Indication:Nonsmoker Start:04-Jan-2019 Instruction Type:Patient Education Patient Instructions Indication:Nonsmoker Start:04-Jan-2019 Instruction Type:Provider Instructions for Treatment How to access health informa tion online Indication:Nonsmoker Start:12-Sep-2018 Instruction Type:Patient Education How to access health informa tion online - Detail Indication:Nonsmoker Start:12-Sep-2018 Instruction Type:Patient Education Patient Instructions Indication:Nonsmoker Start:12-Sep-2018 Instruction Type:Provider Instructions for Treatment How to access health informa tion online Indication:Acute sinusitis Start:27-Aug-2018 Instruction Type:Patient Education How to access health informa tion online - Detail Indication:Acute sinusitis Start:27-Aug-2018 Instruction Type:Patient Education Patient Instructions Indication:Acute sinusitis Start:27-Aug-2018 Instruction Type:Provider Instructions for Treatment How to access health informa tion online Indication:Nonsmoker Start:15-Dec-2017 Instruction Type:Patient Education How to access health informa tion online - Detail Indication:Nonsmoker Start:15-Dec-2017 Instruction Type:Patient Education Patient Instructions Indication:Nonsmoker Start:15-Dec-2017 Instruction Type:Provider Instructions for Treatment How to access health informa tion online Indication:Nonsmoker Start:23-Oct-2017 Instruction Type:Patient Education How to access health informa tion online - Detail Indication:Nonsmoker Start:23-Oct-2017 Instruction Type:Patient Education Patient Instructions Indication:Nonsmoker Start:23-Oct-2017 Instruction Type:Provider Instructions for Treatment How to access health informa tion online Indication:BMI between 19-24,adult Start:06-Jun-2017 Instruction Type:Patient Education How to access health informa tion online - Detail Indication:BMI between 19-24,adult Start:06-Jun-2017 Instruction Type:Patient Education Patient Instructions Indication:BMI between 19-24,adult Start:06-Jun-2017 Instruction Type:Provider Instructions for Treatment How to access health informa tion online Indication:Other hyperlipidemia Start:25-Jan-2017 Instruction Type:Patient Education How to access health informa tion online - Detail Indication:Other hyperlipidemia Start:25-Jan-2017 Instruction Type:Patient Education Patient Instructions Indication:Other hyperlipidemia Start:25-Jan-2017 Instruction Type:Provider Instructions for Treatment How to access health informa tion online Indication:BMI between 19-24,adult Start:19-Oct-2016 Instruction Type:Patient Education How to access health informa tion online - Detail Indication:BMI between 19-24,adult Start:19-Oct-2016 Instruction Type:Patient Education Patient Instructions Indication:BMI between 19-24,adult Start:19-Oct-2016 Instruction Type:Provider Instructions for Treatment How to access health informa tion online Indication:Postprandial abdominal bloating Start:04-May-2016 Instruction Type:Patient Education How to access health informa tion online - Detail Indication:Postprandial abdominal bloating Start:04-May-2016 Instruction Type:Patient Education Patient Instructions Indication:Postprandial abdominal bloating Start:04-May-2016 Instruction Type:Provider Instructions for Treatment How to access health informa tion online Indication:Other hyperlipidemia Start:02-Feb-2016 Instruction Type:Patient Education How to access health informa tion online - Detail Indication:Other hyperlipidemia Start:02-Feb-2016 Instruction Type:Patient Education Patient Instructions Indication:Other hyperlipidemia Start:02-Feb-2016 Instruction Type:Provider Instructions for Treatment How to access health informa tion online Indication:Weakness Start:01-Sep-2015 Instruction Type:Patient Education How to access health informa tion online - Detail Indication:Weakness Start:01-Sep-2015 Instruction Type:Patient Education Patient Instructions Indication:Weakness Start:01-Sep-2015 Instruction Type:Provider Instructions for Treatment Patient Instructions Indication:Rash (Renamed from Cutaneous eruption) Start:25-Aug-2015 Instruction Type:Provider Instructions for Treatment Patient Instructions Indication:Weakness Start:24-Aug-2015 Instruction Type:Provider Instructions for Treatment How to access health informa tion online Indication:Acute ethmoidal sinusitis, recurrence not specified Start:18-Aug-2015 Instruction Type:Patient Education How to access health informa tion online - Detail Indication:Acute ethmoidal sinusitis, recurrence not specified Start:18-Aug-2015 Instruction Type:Patient Education Patient Instructions Indication:Acute ethmoidal sinusitis, recurrence not specified Start:18-Aug-2015 Instruction Type:Provider Instructions for Treatment How to access health informa tion online Indication:Other hyperlipidemia Start:14-Jul-2015 Instruction Type:Patient Education How to access health informa tion online - Detail Indication:Other hyperlipidemia Start:14-Jul-2015 Instruction Type:Patient Education Patient Instructions Indication:Other hyperlipidemia Start:14-Jul-2015 Instruction Type:Provider Instructions for Treatment Patient Instructions Indication:Otitis media Start:15-Aug-2013 Instruction Type:Provider Instructions for Treatment Patient Instructions Indication:Family history of heart attack Start:05-Jul-2013 Instruction Type:Provider Instructions for Treatment [facility]; [facility] Work Phone: Instructions* Name Dates Details Patient Instructions Indication:[facility] EX[facility] Start:24-Apr-2023 Instruction Type:Provider Instructions for Treatment How to Access Health Informa tion Online using Patient Portal and [employer] Apps Indication:[facility] EX[facility] Start:24-Apr-2023 Instruction Type:Patient Education Patient Instructions Indication:Boil, buttock Start:14-Sep-2022 Instruction Type:Provider Instructions for Treatment How to Access Health Informa tion Online using Patient Portal and [employer] Apps Indication:Boil, buttock Start:14-Sep-2022 Instruction Type:Patient Education Patient Instructions Indication:[facility] EX[facility] Start:03-Jun-2022 Instruction Type:Provider Instructions for Treatment How to Access Health Informa tion Online using Patient Portal and [employer] Apps Indication:[facility] EX[facility] Start:03-Jun-2022 Instruction Type:Patient Education Patient Instructions Indication:COVID Start:21-Nov-2021 Instruction Type:Provider Instructions for Treatment Patient Instructions Indication:Polyp of skin Start:12-May-2021 Instruction Type:Provider Instructions for Treatment How to Access Health Informa tion Online using Patient Portal and [employer] Apps Indication:Polyp of skin Start:12-May-2021 Instruction Type:Patient Education Patient Instructions Indication:Nonsmoker Start:10-Nov-2020 Instruction Type:Provider Instructions for Treatment How to Access Health Informa tion Online using Patient Portal and [employer] Apps Indication:Nonsmoker Start:10-Nov-2020 Instruction Type:Patient Education How to access health informa tion online Indication:Vaginal irritation Start:23-Mar-2020 Instruction Type:Patient Education How to access health informa tion online - Detail Indication:Vaginal irritation Start:23-Mar-2020 Instruction Type:Patient Education Patient Instructions Indication:Vaginal irritation Start:23-Mar-2020 Instruction Type:Provider Instructions for Treatment How to access health informa tion online Indication:BMI 24.0-24.9, adult Start:08-Jan-2020 Instruction Type:Patient Education How to access health informa tion online - Detail Indication:BMI 24.0-24.9, adult Start:08-Jan-2020 Instruction Type:Patient Education Patient Instructions Indication:BMI 24.0-24.9, adult Start:08-Jan-2020 Instruction Type:Provider Instructions for Treatment How to access health informa tion online Indication:Nonsmoker Start:23-Sep-2019 Instruction Type:Patient Education How to access health informa tion online - Detail Indication:Nonsmoker Start:23-Sep-2019 Instruction Type:Patient Education Patient Instructions Indication:Nonsmoker Start:23-Sep-2019 Instruction Type:Provider Instructions for Treatment How to access health informa tion online Indication:Vaginal itching Start:09-Sep-2019 Instruction Type:Patient Education How to access health informa tion online - Detail Indication:Vaginal itching Start:09-Sep-2019 Instruction Type:Patient Education Patient Instructions Indication:Vaginal itching Start:09-Sep-2019 Instruction Type:Provider Instructions for Treatment How to access health informa tion online Indication:Postprandial abdominal bloating Start:06-Mar-2019 Instruction Type:Patient Education How to access health informa tion online - Detail Indication:Postprandial abdominal bloating Start:06-Mar-2019 Instruction Type:Patient Education Patient Instructions Indication:Postprandial abdominal bloating Start:06-Mar-2019 Instruction Type:Provider Instructions for Treatment How to access health informa tion online Indication:Nonsmoker Start:04-Jan-2019 Instruction Type:Patient Education How to access health informa tion online - Detail Indication:Nonsmoker Start:04-Jan-2019 Instruction Type:Patient Education Patient Instructions Indication:Nonsmoker Start:04-Jan-2019 Instruction Type:Provider Instructions for Treatment How to access health informa tion online Indication:Nonsmoker Start:12-Sep-2018 Instruction Type:Patient Education How to access health informa tion online - Detail Indication:Nonsmoker Start:12-Sep-2018 Instruction Type:Patient Education Patient Instructions Indication:Nonsmoker Start:12-Sep-2018 Instruction Type:Provider Instructions for Treatment How to access health informa tion online Indication:Acute sinusitis Start:27-Aug-2018 Instruction Type:Patient Education How to access health informa tion online - Detail Indication:Acute sinusitis Start:27-Aug-2018 Instruction Type:Patient Education Patient Instructions Indication:Acute sinusitis Start:27-Aug-2018 Instruction Type:Provider Instructions for Treatment How to access health informa tion online Indication:Nonsmoker Start:15-Dec-2017 Instruction Type:Patient Education How to access health informa tion online - Detail Indication:Nonsmoker Start:15-Dec-2017 Instruction Type:Patient Education Patient Instructions Indication:Nonsmoker Start:15-Dec-2017 Instruction Type:Provider Instructions for Treatment How to access health informa tion online Indication:Nonsmoker Start:23-Oct-2017 Instruction Type:Patient Education How to access health informa tion online - Detail Indication:Nonsmoker Start:23-Oct-2017 Instruction Type:Patient Education Patient Instructions Indication:Nonsmoker Start:23-Oct-2017 Instruction Type:Provider Instructions for Treatment How to access health informa tion online Indication:BMI between 19-24,adult Start:06-Jun-2017 Instruction Type:Patient Education How to access health informa tion online - Detail Indication:BMI between 19-24,adult Start:06-Jun-2017 Instruction Type:Patient Education Patient Instructions Indication:BMI between 19-24,adult Start:06-Jun-2017 Instruction Type:Provider Instructions for Treatment How to access health informa tion online Indication:Other hyperlipidemia Start:25-Jan-2017 Instruction Type:Patient Education How to access health informa tion online - Detail Indication:Other hyperlipidemia Start:25-Jan-2017 Instruction Type:Patient Education Patient Instructions Indication:Other hyperlipidemia Start:25-Jan-2017 Instruction Type:Provider Instructions for Treatment How to access health informa tion online Indication:BMI between 19-24,adult Start:19-Oct-2016 Instruction Type:Patient Education How to access health informa tion online - Detail Indication:BMI between 19-24,adult Start:19-Oct-2016 Instruction Type:Patient Education Patient Instructions Indication:BMI between 19-24,adult Start:19-Oct-2016 Instruction Type:Provider Instructions for Treatment How to access health informa tion online Indication:Postprandial abdominal bloating Start:04-May-2016 Instruction Type:Patient Education How to access health informa tion online - Detail Indication:Postprandial abdominal bloating Start:04-May-2016 Instruction Type:Patient Education Patient Instructions Indication:Postprandial abdominal bloating Start:04-May-2016 Instruction Type:Provider Instructions for Treatment How to access health informa tion online Indication:Other hyperlipidemia Start:02-Feb-2016 Instruction Type:Patient Education How to access health informa tion online - Detail Indication:Other hyperlipidemia Start:02-Feb-2016 Instruction Type:Patient Education Patient Instructions Indication:Other hyperlipidemia Start:02-Feb-2016 Instruction Type:Provider Instructions for Treatment How to access health informa tion online Indication:Weakness Start:01-Sep-2015 Instruction Type:Patient Education How to access health informa tion online - Detail Indication:Weakness Start:01-Sep-2015 Instruction Type:Patient Education Patient Instructions Indication:Weakness Start:01-Sep-2015 Instruction Type:Provider Instructions for Treatment Patient Instructions Indication:Rash (Renamed from Cutaneous eruption) Start:25-Aug-2015 Instruction Type:Provider Instructions for Treatment Patient Instructions Indication:Weakness Start:24-Aug-2015 Instruction Type:Provider Instructions for Treatment How to access health informa tion online Indication:Acute ethmoidal sinusitis, recurrence not specified Start:18-Aug-2015 Instruction Type:Patient Education How to access health informa tion online - Detail Indication:Acute ethmoidal sinusitis, recurrence not specified Start:18-Aug-2015 Instruction Type:Patient Education Patient Instructions Indication:Acute ethmoidal sinusitis, recurrence not specified Start:18-Aug-2015 Instruction Type:Provider Instructions for Treatment How to access health informa tion online Indication:Other hyperlipidemia Start:14-Jul-2015 Instruction Type:Patient Education How to access health informa tion online - Detail Indication:Other hyperlipidemia Start:14-Jul-2015 Instruction Type:Patient Education Patient Instructions Indication:Other hyperlipidemia Start:14-Jul-2015 Instruction Type:Provider Instructions for Treatment Patient Instructions Indication:Otitis media Start:15-Aug-2013 Instruction Type:Provider Instructions for Treatment Patient Instructions Indication:Family history of heart attack Start:05-Jul-2013 Instruction Type:Provider Instructions for Treatment [facility] Work Phone: Instructions* Name Dates Details Patient Instructions Indication:[facility] Start:24-Apr-2023 Instruction Type:Provider Instructions for Treatment How to Access Health Informa tion Online using Patient Portal and [employer] Apps Indication:[facility] Start:24-Apr-2023 Instruction Type:Patient Education Patient Instructions Indication:Boil, buttock Start:14-Sep-2022 Instruction Type:Provider Instructions for Treatment How to Access Health Informa tion Online using Patient Portal and [employer] Apps Indication:Boil, buttock Start:14-Sep-2022 Instruction Type:Patient Education Patient Instructions Indication:[facility] Start:03-Jun-2022 Instruction Type:Provider Instructions for Treatment How to Access Health Informa tion Online using Patient Portal and [employer]rd [employer] Apps Indication:[facility] Start:03-Jun-2022 Instruction Type:Patient Education Patient Instructions Indication:COVID Start:21-Nov-2021 Instruction Type:Provider Instructions for Treatment Patient Instructions Indication:Polyp of skin Start:12-May-2021 Instruction Type:Provider Instructions for Treatment How to Access Health Informa tion Online using Patient Portal and [employer]rd [employer] Apps Indication:Polyp of skin Start:12-May-2021 Instruction Type:Patient Education Patient Instructions Indication:Nonsmoker Start:10-Nov-2020 Instruction Type:Provider Instructions for Treatment How to Access Health Informa tion Online using Patient Portal and [employer] Apps Indication:Nonsmoker Start:10-Nov-2020 Instruction Type:Patient Education How to access health informa tion online Indication:Vaginal irritation Start:23-Mar-2020 Instruction Type:Patient Education How to access health informa tion online - Detail Indication:Vaginal irritation Start:23-Mar-2020 Instruction Type:Patient Education Patient Instructions Indication:Vaginal irritation Start:23-Mar-2020 Instruction Type:Provider Instructions for Treatment How to access health informa tion online Indication:BMI 24.0-24.9, adult Start:08-Jan-2020 Instruction Type:Patient Education How to access health informa tion online - Detail Indication:BMI 24.0-24.9, adult Start:08-Jan-2020 Instruction Type:Patient Education Patient Instructions Indication:BMI 24.0-24.9, adult Start:08-Jan-2020 Instruction Type:Provider Instructions for Treatment How to access health informa tion online Indication:Nonsmoker Start:23-Sep-2019 Instruction Type:Patient Education How to access health informa tion online - Detail Indication:Nonsmoker Start:23-Sep-2019 Instruction Type:Patient Education Patient Instructions Indication:Nonsmoker Start:23-Sep-2019 Instruction Type:Provider Instructions for Treatment How to access health informa tion online Indication:Vaginal itching Start:09-Sep-2019 Instruction Type:Patient Education How to access health informa tion online - Detail Indication:Vaginal itching Start:09-Sep-2019 Instruction Type:Patient Education Patient Instructions Indication:Vaginal itching Start:09-Sep-2019 Instruction Type:Provider Instructions for Treatment How to access health informa tion online Indication:Postprandial abdominal bloating Start:06-Mar-2019 Instruction Type:Patient Education How to access health informa tion online - Detail Indication:Postprandial abdominal bloating Start:06-Mar-2019 Instruction Type:Patient Education Patient Instructions Indication:Postprandial abdominal bloating Start:06-Mar-2019 Instruction Type:Provider Instructions for Treatment How to access health informa tion online Indication:Nonsmoker Start:04-Jan-2019 Instruction Type:Patient Education How to access health informa tion online - Detail Indication:Nonsmoker Start:04-Jan-2019 Instruction Type:Patient Education Patient Instructions Indication:Nonsmoker Start:04-Jan-2019 Instruction Type:Provider Instructions for Treatment How to access health informa tion online Indication:Nonsmoker Start:12-Sep-2018 Instruction Type:Patient Education How to access health informa tion online - Detail Indication:Nonsmoker Start:12-Sep-2018 Instruction Type:Patient Education Patient Instructions Indication:Nonsmoker Start:12-Sep-2018 Instruction Type:Provider Instructions for Treatment How to access health informa tion online Indication:Acute sinusitis Start:27-Aug-2018 Instruction Type:Patient Education How to access health informa tion online - Detail Indication:Acute sinusitis Start:27-Aug-2018 Instruction Type:Patient Education Patient Instructions Indication:Acute sinusitis Start:27-Aug-2018 Instruction Type:Provider Instructions for Treatment How to access health informa tion online Indication:Nonsmoker Start:15-Dec-2017 Instruction Type:Patient Education How to access health informa tion online - Detail Indication:Nonsmoker Start:15-Dec-2017 Instruction Type:Patient Education Patient Instructions Indication:Nonsmoker Start:15-Dec-2017 Instruction Type:Provider Instructions for Treatment How to access health informa tion online Indication:Nonsmoker Start:23-Oct-2017 Instruction Type:Patient Education How to access health informa tion online - Detail Indication:Nonsmoker Start:23-Oct-2017 Instruction Type:Patient Education Patient Instructions Indication:Nonsmoker Start:23-Oct-2017 Instruction Type:Provider Instructions for Treatment How to access health informa tion online Indication:BMI between 19-24,adult Start:06-Jun-2017 Instruction Type:Patient Education How to access health informa tion online - Detail Indication:BMI between 19-24,adult Start:06-Jun-2017 Instruction Type:Patient Education Patient Instructions Indication:BMI between 19-24,adult Start:06-Jun-2017 Instruction Type:Provider Instructions for Treatment How to access health informa tion online Indication:Other hyperlipidemia Start:25-Jan-2017 Instruction Type:Patient Education How to access health informa tion online - Detail Indication:Other hyperlipidemia Start:25-Jan-2017 Instruction Type:Patient Education Patient Instructions Indication:Other hyperlipidemia Start:25-Jan-2017 Instruction Type:Provider Instructions for Treatment How to access health informa tion online Indication:BMI between 19-24,adult Start:19-Oct-2016 Instruction Type:Patient Education How to access health informa tion online - Detail Indication:BMI between 19-24,adult Start:19-Oct-2016 Instruction Type:Patient Education Patient Instructions Indication:BMI between 19-24,adult Start:19-Oct-2016 Instruction Type:Provider Instructions for Treatment How to access health informa tion online Indication:Postprandial abdominal bloating Start:04-May-2016 Instruction Type:Patient Education How to access health informa tion online - Detail Indication:Postprandial abdominal bloating Start:04-May-2016 Instruction Type:Patient Education Patient Instructions Indication:Postprandial abdominal bloating Start:04-May-2016 Instruction Type:Provider Instructions for Treatment How to access health informa tion online Indication:Other hyperlipidemia Start:02-Feb-2016 Instruction Type:Patient Education How to access health informa tion online - Detail Indication:Other hyperlipidemia Start:02-Feb-2016 Instruction Type:Patient Education Patient Instructions Indication:Other hyperlipidemia Start:02-Feb-2016 Instruction Type:Provider Instructions for Treatment How to access health informa tion online Indication:Weakness Start:01-Sep-2015 Instruction Type:Patient Education How to access health informa tion online - Detail Indication:Weakness Start:01-Sep-2015 Instruction Type:Patient Education Patient Instructions Indication:Weakness Start:01-Sep-2015 Instruction Type:Provider Instructions for Treatment Patient Instructions Indication:Rash (Renamed from Cutaneous eruption) Start:25-Aug-2015 Instruction Type:Provider Instructions for Treatment Patient Instructions Indication:Weakness Start:24-Aug-2015 Instruction Type:Provider Instructions for Treatment How to access health informa tion online Indication:Acute ethmoidal sinusitis, recurrence not specified Start:18-Aug-2015 Instruction Type:Patient Education How to access health informa tion online - Detail Indication:Acute ethmoidal sinusitis, recurrence not specified Start:18-Aug-2015 Instruction Type:Patient Education Patient Instructions Indication:Acute ethmoidal sinusitis, recurrence not specified Start:18-Aug-2015 Instruction Type:Provider Instructions for Treatment How to access health informa tion online Indication:Other hyperlipidemia Start:14-Jul-2015 Instruction Type:Patient Education How to access health informa tion online - Detail Indication:Other hyperlipidemia Start:14-Jul-2015 Instruction Type:Patient Education Patient Instructions Indication:Other hyperlipidemia Start:14-Jul-2015 Instruction Type:Provider Instructions for Treatment Patient Instructions Indication:Otitis media Start:15-Aug-2013 Instruction Type:Provider Instructions for Treatment Patient Instructions Indication:Family history of heart attack Start:05-Jul-2013 Instruction Type:Provider Instructions for Treatment [facility] Work Phone: Instructions* Name Dates Details Patient Instructions Indication:[facility] Start:24-Apr-2023 Instruction Type:Provider Instructions for Treatment How to Access Health Informa tion Online using Patient Portal and [employer]rd [employer] Apps Indication:[facility] Start:24-Apr-2023 Instruction Type:Patient Education Patient Instructions Indication:Boil, buttock Start:14-Sep-2022 Instruction Type:Provider Instructions for Treatment How to Access Health Informa tion Online using Patient Portal and [employer] Apps Indication:Boil, buttock Start:14-Sep-2022 Instruction Type:Patient Education Patient Instructions Indication:[facility] Start:03-Jun-2022 Instruction Type:Provider Instructions for Treatment How to Access Health Informa tion Online using Patient Portal and [employer] Apps Indication:[facility] Start:03-Jun-2022 Instruction Type:Patient Education Patient Instructions Indication:COVID Start:21-Nov-2021 Instruction Type:Provider Instructions for Treatment Patient Instructions Indication:Polyp of skin Start:12-May-2021 Instruction Type:Provider Instructions for Treatment How to Access Health Informa tion Online using Patient Portal and [employer]rd [employer] Apps Indication:Polyp of skin Start:12-May-2021 Instruction Type:Patient Education Patient Instructions Indication:Nonsmoker Start:10-Nov-2020 Instruction Type:Provider Instructions for Treatment How to Access Health Informa tion Online using Patient Portal and [employer]rd [employer] Apps Indication:Nonsmoker Start:10-Nov-2020 Instruction Type:Patient Education How to access health informa tion online Indication:Vaginal irritation Start:23-Mar-2020 Instruction Type:Patient Education How to access health informa tion online - Detail Indication:Vaginal irritation Start:23-Mar-2020 Instruction Type:Patient Education Patient Instructions Indication:Vaginal irritation Start:23-Mar-2020 Instruction Type:Provider Instructions for Treatment How to access health informa tion online Indication:BMI 24.0-24.9, adult Start:08-Jan-2020 Instruction Type:Patient Education How to access health informa tion online - Detail Indication:BMI 24.0-24.9, adult Start:08-Jan-2020 Instruction Type:Patient Education Patient Instructions Indication:BMI 24.0-24.9, adult Start:08-Jan-2020 Instruction Type:Provider Instructions for Treatment How to access health informa tion online Indication:Nonsmoker Start:23-Sep-2019 Instruction Type:Patient Education How to access health informa tion online - Detail Indication:Nonsmoker Start:23-Sep-2019 Instruction Type:Patient Education Patient Instructions Indication:Nonsmoker Start:23-Sep-2019 Instruction Type:Provider Instructions for Treatment How to access health informa tion online Indication:Vaginal itching Start:09-Sep-2019 Instruction Type:Patient Education How to access health informa tion online - Detail Indication:Vaginal itching Start:09-Sep-2019 Instruction Type:Patient Education Patient Instructions Indication:Vaginal itching Start:09-Sep-2019 Instruction Type:Provider Instructions for Treatment How to access health informa tion online Indication:Postprandial abdominal bloating Start:06-Mar-2019 Instruction Type:Patient Education How to access health informa tion online - Detail Indication:Postprandial abdominal bloating Start:06-Mar-2019 Instruction Type:Patient Education Patient Instructions Indication:Postprandial abdominal bloating Start:06-Mar-2019 Instruction Type:Provider Instructions for Treatment How to access health informa tion online Indication:Nonsmoker Start:04-Jan-2019 Instruction Type:Patient Education How to access health informa tion online - Detail Indication:Nonsmoker Start:04-Jan-2019 Instruction Type:Patient Education Patient Instructions Indication:Nonsmoker Start:04-Jan-2019 Instruction Type:Provider Instructions for Treatment How to access health informa tion online Indication:Nonsmoker Start:12-Sep-2018 Instruction Type:Patient Education How to access health informa tion online - Detail Indication:Nonsmoker Start:12-Sep-2018 Instruction Type:Patient Education Patient Instructions Indication:Nonsmoker Start:12-Sep-2018 Instruction Type:Provider Instructions for Treatment How to access health informa tion online Indication:Acute sinusitis Start:27-Aug-2018 Instruction Type:Patient Education How to access health informa tion online - Detail Indication:Acute sinusitis Start:27-Aug-2018 Instruction Type:Patient Education Patient Instructions Indication:Acute sinusitis Start:27-Aug-2018 Instruction Type:Provider Instructions for Treatment How to access health informa tion online Indication:Nonsmoker Start:15-Dec-2017 Instruction Type:Patient Education How to access health informa tion online - Detail Indication:Nonsmoker Start:15-Dec-2017 Instruction Type:Patient Education Patient Instructions Indication:Nonsmoker Start:15-Dec-2017 Instruction Type:Provider Instructions for Treatment How to access health informa tion online Indication:Nonsmoker Start:23-Oct-2017 Instruction Type:Patient Education How to access health informa tion online - Detail Indication:Nonsmoker Start:23-Oct-2017 Instruction Type:Patient Education Patient Instructions Indication:Nonsmoker Start:23-Oct-2017 Instruction Type:Provider Instructions for Treatment How to access health informa tion online Indication:BMI between 19-24,adult Start:06-Jun-2017 Instruction Type:Patient Education How to access health informa tion online - Detail Indication:BMI between 19-24,adult Start:06-Jun-2017 Instruction Type:Patient Education Patient Instructions Indication:BMI between 19-24,adult Start:06-Jun-2017 Instruction Type:Provider Instructions for Treatment How to access health informa tion online Indication:Other hyperlipidemia Start:25-Jan-2017 Instruction Type:Patient Education How to access health informa tion online - Detail Indication:Other hyperlipidemia Start:25-Jan-2017 Instruction Type:Patient Education Patient Instructions Indication:Other hyperlipidemia Start:25-Jan-2017 Instruction Type:Provider Instructions for Treatment How to access health informa tion online Indication:BMI between 19-24,adult Start:19-Oct-2016 Instruction Type:Patient Education How to access health informa tion online - Detail Indication:BMI between 19-24,adult Start:19-Oct-2016 Instruction Type:Patient Education Patient Instructions Indication:BMI between 19-24,adult Start:19-Oct-2016 Instruction Type:Provider Instructions for Treatment How to access health informa tion online Indication:Postprandial abdominal bloating Start:04-May-2016 Instruction Type:Patient Education How to access health informa tion online - Detail Indication:Postprandial abdominal bloating Start:04-May-2016 Instruction Type:Patient Education Patient Instructions Indication:Postprandial abdominal bloating Start:04-May-2016 Instruction Type:Provider Instructions for Treatment How to access health informa tion online Indication:Other hyperlipidemia Start:02-Feb-2016 Instruction Type:Patient Education How to access health informa tion online - Detail Indication:Other hyperlipidemia Start:02-Feb-2016 Instruction Type:Patient Education Patient Instructions Indication:Other hyperlipidemia Start:02-Feb-2016 Instruction Type:Provider Instructions for Treatment How to access health informa tion online Indication:Weakness Start:01-Sep-2015 Instruction Type:Patient Education How to access health informa tion online - Detail Indication:Weakness Start:01-Sep-2015 Instruction Type:Patient Education Patient Instructions Indication:Weakness Start:01-Sep-2015 Instruction Type:Provider Instructions for Treatment Patient Instructions Indication:Rash (Renamed from Cutaneous eruption) Start:25-Aug-2015 Instruction Type:Provider Instructions for Treatment Patient Instructions Indication:Weakness Start:24-Aug-2015 Instruction Type:Provider Instructions for Treatment How to access health informa tion online Indication:Acute ethmoidal sinusitis, recurrence not specified Start:18-Aug-2015 Instruction Type:Patient Education How to access health informa tion online - Detail Indication:Acute ethmoidal sinusitis, recurrence not specified Start:18-Aug-2015 Instruction Type:Patient Education Patient Instructions Indication:Acute ethmoidal sinusitis, recurrence not specified Start:18-Aug-2015 Instruction Type:Provider Instructions for Treatment How to access health informa tion online Indication:Other hyperlipidemia Start:14-Jul-2015 Instruction Type:Patient Education How to access health informa tion online - Detail Indication:Other hyperlipidemia Start:14-Jul-2015 Instruction Type:Patient Education Patient Instructions Indication:Other hyperlipidemia Start:14-Jul-2015 Instruction Type:Provider Instructions for Treatment Patient Instructions Indication:Otitis media Start:15-Aug-2013 Instruction Type:Provider Instructions for Treatment Patient Instructions Indication:Family history of heart attack Start:05-Jul-2013 Instruction Type:Provider Instructions for Treatment [facility] Work Phone: Family History Unknown Family Member Name Dates Details Father Comments:living and healthy Status:Active Maternal Grandmother Comments: in her 60s from [place] Status:Active Mother Comments: 52 from ch ronic renal failure from type 1 dm - -cad Status:Active Unknown Family Member Name Dates Details Father Comments:living and healthy Status:Active Maternal Grandmother Comments: in her 60s from [place] Status:Active Mother Comments: 52 from ch ronic renal failure from type 1 dm - -cad Status:Active Unknown Family Member Name Dates Details Father Comments:living and healthy Status:Active Maternal Grandmother Comments: in her 60s from [place] Status:Active Mother Comments: 52 from ch ronic renal failure from type 1 dm - -cad Status:Active Unknown Family Member Name Dates Details Father Comments:living and healthy Status:Active Maternal Grandmother Comments: in her 60s from [place] Status:Active Mother Comments: 52 from ch ronic renal failure from type 1 dm - -cad Status:Active Unknown Family Member Name Dates Details Father Comments:living and healthy Status:Active Maternal Grandmother Comments: in her 60s from [place] Status:Active Mother Comments: 52 from ch ronic renal failure from type 1 dm - -cad Status:Active Unknown Family Member Name Dates Details Father Comments:living and healthy Status:Active Maternal Grandmother Comments: in her 60s from [place] Status:Active Mother Comments: 52 from ch ronic renal failure from type 1 dm - -cad Status:Active Unknown Family Member Name Dates Details Father Comments:living and healthy Status:Active Maternal Grandmother Comments: in her 60s from [place] Status:Active Mother Comments: 52 from ch ronic renal failure from type 1 dm - -cad Status:Active Unknown Family Member Name Dates Details Father Comments:living and healthy Status:Active Maternal Grandmother Comments: in her 60s from [place] Status:Active Mother Comments: 52 from [place] ronic renal failure from type 1 dm - -cad Status:Active Unknown Family Member Name Dates Details Father Comments:living and healthy Status:Active Maternal Grandmother Comments: in her 60s from [place] Status:Active Mother Comments: 52 from [place] ronic renal failure from type 1 dm - -cad Status:Active Unknown Family Member Name Dates Details Father Comments:living and healthy Status:Active Maternal Grandmother Comments: in her 60s from [place] Status:Active Mother Comments: 52 from mar[place] blackwellic renal failure from type 1 dm - -cad Status:Active Unknown Family Member Name Dates Details Father Comments:living and healthy Status:Active Maternal Grandmother Comments: in her 60s from [place] Status:Active Mother Comments: 52 from marcel[place] fowler renal failure from type 1 dm - -cad Status:Active Unknown Family Member Name Dates Details Father Comments:living and healthy Status:Active Maternal Grandmother Comments: in her 60s from [place] Status:Active Mother Comments: 52 from [place] fowler renal failure from type 1 dm - -cad Status:Active Unknown Family Member Name Dates Details Father Comments:living and healthy Status:Active Maternal Grandmother Comments: in her 60s from [place] Status:Active Mother Comments: 52 from [place] fowler renal failure from type 1 dm - -cad Status:Active Unknown Family Member Name Dates Details Father Comments:living and healthy Status:Active Maternal Grandmother Comments: in her 60s from [place] Status:Active Mother Comments: 52 from [place] fowler renal failure from type 1 dm - -cad Status:Active Unknown Family Member Name Dates Details Father Comments:living and healthy Status:Active Maternal Grandmother Comments: in her 60s from [place] Status:Active Mother Comments: 52 from mar[place] blackwellic renal failure from type 1 dm - -cad Status:Active Unknown Family Member Name Dates Details Father Comments:living and healthy Status:Active Maternal Grandmother Comments: in her 60s from [place] Status:Active Mother Comments: 52 from marcel[place] blackwellic renal failure from type 1 dm - -cad Status:Active Unknown Family Member Name Dates Details Father Comments:living and healthy Status:Active Maternal Grandmother Comments: in her 60s from [place] Status:Active Mother Comments: 52 from [place] ronic renal failure from type 1 dm - -cad Status:Active Unknown Family Member Name Dates Details Father Comments:living and healthy Status:Active Maternal Grandmother Comments: in her 60s from [place] Status:Active Mother Comments: 52 from [place] ronic renal failure from type 1 dm - -cad Status:Active Unknown Family Member Name Dates Details Father Comments:living and healthy Status:Active Maternal Grandmother Comments: in her 60s from [place] Status:Active Mother Comments: 52 from [place] ronic renal failure from type 1 dm - -cad Status:Active Unknown Family Member Name Dates Details Father Comments:living and healthy Status:Active Maternal Grandmother Comments: in her 60s from [place] Status:Active Mother Comments: 52 from [place] ronic renal failure from type 1 dm - -cad Status:Active Unknown Family Member Name Dates Details Father Comments:living and healthy Status:Active Maternal Grandmother Comments: in her 60s from [place] Status:Active Mother Comments: 52 from [place] ronic renal failure from type 1 dm - -cad Status:Active Unknown Family Member Name Dates Details Father Comments:living and healthy Status:Active Maternal Grandmother Comments: in her 60s from [place] Status:Active Mother Comments: 52 from [place] ronic renal failure from type 1 dm - -cad Status:Active Unknown Family Member Name Dates Details Father Comments:living and healthy Status:Active Maternal Grandmother Comments: in her 60s from [place] Status:Active Mother Comments: 52 from [place] ronic renal failure from type 1 dm - -cad Status:Active Unknown Family Member Name Dates Details Father Comments:living and healthy Status:Active Maternal Grandmother Comments: in her 60s from [place] Status:Active Mother Comments: 52 from [place] renal failure from type 1 dm - -cad Status:Active Unknown Family Member Name Dates Details Father Comments:living and healthy Status:Active Maternal Grandmother Comments: in her 60s from [place] Status:Active Mother Comments: 52 from [place] renal failure from type 1 dm - -cad Status:Active Unknown Family Member Name Dates Details Father Comments:living and healthy Status:Active Maternal Grandmother Comments: in her 60s from [place] Status:Active Mother Comments: 52 from [place] renal failure from type 1 dm - -cad Status:Active Unknown Family Member Name Dates Details Father Comments:living and healthy Status:Active Maternal Grandmother Comments: in her 60s from [place] Status:Active Mother Comments: 52 from [place] renal failure from type 1 dm - -cad Status:Active Unknown Family Member Name Dates Details Father Comments:living and healthy Status:Active Maternal Grandmother Comments: in her 60s from [place] Status:Active Mother Comments: 52 from [place] renal failure from type 1 dm - -cad Status:Active Unknown Family Member Name Dates Details Father Comments:living and healthy Status:Active Maternal Grandmother Comments: in her 60s from [place] Status:Active Mother Comments: 52 from [place] renal failure from type 1 dm - -cad Status:Active Unknown Family Member Name Dates Details Father Comments:living and healthy Status:Active Maternal Grandmother Comments: in her 60s from [place] Status:Active Mother Comments: 52 from [place] renal failure from type 1 dm - -cad Status:Active Unknown Family Member Name Dates Details Father Comments:living and healthy Status:Active Maternal Grandmother Comments: in her 60s from [place] Status:Active Mother Comments: 52 from [place] renal failure from type 1 dm - -cad Status:Active Unknown Family Member Name Dates Details Father Comments:living and healthy Status:Active Maternal Grandmother Comments: in her 60s from [place] Status:Active Mother Comments: 52 from [place] renal failure from type 1 dm - -cad Status:Active Instructions Name Dates Details Nonsmoker : How to access he alth information online Indication:Nonsmoker Nonsmoker : How to access he alth information online - Detail Indication:Nonsmoker Nonsmoker : Patient Instruct ions Indication:Nonsmoker BMI between 19-24,adult : Ho w to access health information online Indication:BMI between 19-24,adult BMI between 19-24,adult : Ho w to access health information online - Detail Indication:BMI between 19-24,adult BMI between 19-24,adult : Raúl sutton Instructions Indication:BMI between 19-24,adult Other hyperlipidemia : How t o access health information online Indication:Other hyperlipidemia Other hyperlipidemia : How t o access health information online - Detail Indication:Other hyperlipidemia Other hyperlipidemia : Patie nt Instructions Indication:Other hyperlipidemia Postprandial abdominal bloat ing : How to access health information online Indication:Postprandial abdominal bloating Postprandial abdominal bloat ing : How to access health information online - Detail Indication:Postprandial abdominal bloating Postprandial abdominal bloat ing : Patient Instructions Indication:Postprandial abdominal bloating Weakness : How to access hea lth information online Indication:Weakness Weakness : How to access hea lth information online - Detail Indication:Weakness Weakness : Patient Instructi ons Indication:Weakness Rash (Renamed from Cutaneous eruption) : Patient Instructions Indication:Rash (Renamed from Cutaneous eruption) Acute ethmoidal sinusitis, r ecurrence not specified : How to access health information online Indication:Acute ethmoidal sinusitis, recurrence not specified Acute ethmoidal sinusitis, r ecurrence not specified : How to access health information online - Detail Indication:Acute ethmoidal sinusitis, recurrence not specified Acute ethmoidal sinusitis, r ecurrence not specified : Patient Instructions Indication:Acute ethmoidal sinusitis, recurrence not specified Otitis media : Patient Instr uctions Indication:Otitis media Family history of heart jen ck : Patient Instructions Indication:Family history of heart attack Name Dates Details Nonsmoker : How to access he alth information online Indication:Nonsmoker Nonsmoker : How to access he alth information online - Detail Indication:Nonsmoker Nonsmoker : Patient Instruct ions Indication:Nonsmoker Acute sinusitis : How to acc ess health information online Indication:Acute sinusitis Acute sinusitis : How to acc ess health information online - Detail Indication:Acute sinusitis Acute sinusitis : Patient In structions Indication:Acute sinusitis BMI between 19-24,adult : Ho w to access health information online Indication:BMI between 19-24,adult BMI between 19-24,adult : Ho w to access health information online - Detail Indication:BMI between 19-24,adult BMI between 19-24,adult : Raúl wilsonnt Instructions Indication:BMI between 19-24,adult Other hyperlipidemia : How t o access health information online Indication:Other hyperlipidemia Other hyperlipidemia : How t o access health information online - Detail Indication:Other hyperlipidemia Other hyperlipidemia : Patie nt Instructions Indication:Other hyperlipidemia Postprandial abdominal bloat ing : How to access health information online Indication:Postprandial abdominal bloating Postprandial abdominal bloat ing : How to access health information online - Detail Indication:Postprandial abdominal bloating Postprandial abdominal bloat ing : Patient Instructions Indication:Postprandial abdominal bloating Weakness : How to access hea lth information online Indication:Weakness Weakness : How to access hea lth information online - Detail Indication:Weakness Weakness : Patient Instructi ons Indication:Weakness Rash (Renamed from Cutaneous eruption) : Patient Instructions Indication:Rash (Renamed from Cutaneous eruption) Acute ethmoidal sinusitis, r ecurrence not specified : How to access health information online Indication:Acute ethmoidal sinusitis, recurrence not specified Acute ethmoidal sinusitis, r ecurrence not specified : How to access health information online - Detail Indication:Acute ethmoidal sinusitis, recurrence not specified Acute ethmoidal sinusitis, r ecurrence not specified : Patient Instructions Indication:Acute ethmoidal sinusitis, recurrence not specified Otitis media : Patient Instr uctions Indication:Otitis media Family history of heart jen ck : Patient Instructions Indication:Family history of heart attack Name Dates Details Nonsmoker : How to access he alth information online Indication:Nonsmoker Nonsmoker : How to access he alth information online - Detail Indication:Nonsmoker Nonsmoker : Patient Instruct ions Indication:Nonsmoker Acute sinusitis : How to acc ess health information online Indication:Acute sinusitis Acute sinusitis : How to acc ess health information online - Detail Indication:Acute sinusitis Acute sinusitis : Patient In structions Indication:Acute sinusitis BMI between 19-24,adult : Ho w to access health information online Indication:BMI between 19-24,adult BMI between 19-24,adult : Ho w to access health information online - Detail Indication:BMI between 19-24,adult BMI between 19-24,adult : Pa katient Instructions Indication:BMI between 19-24,adult Other hyperlipidemia : How t o access health information online Indication:Other hyperlipidemia Other hyperlipidemia : How t o access health information online - Detail Indication:Other hyperlipidemia Other hyperlipidemia : Patie nt Instructions Indication:Other hyperlipidemia Postprandial abdominal bloat ing : How to access health information online Indication:Postprandial abdominal bloating Postprandial abdominal bloat ing : How to access health information online - Detail Indication:Postprandial abdominal bloating Postprandial abdominal bloat ing : Patient Instructions Indication:Postprandial abdominal bloating Weakness : How to access hea lth information online Indication:Weakness Weakness : How to access hea lth information online - Detail Indication:Weakness Weakness : Patient Instructi ons Indication:Weakness Rash (Renamed from Cutaneous eruption) : Patient Instructions Indication:Rash (Renamed from Cutaneous eruption) Acute ethmoidal sinusitis, r ecurrence not specified : How to access health information online Indication:Acute ethmoidal sinusitis, recurrence not specified Acute ethmoidal sinusitis, r ecurrence not specified : How to access health information online - Detail Indication:Acute ethmoidal sinusitis, recurrence not specified Acute ethmoidal sinusitis, r ecurrence not specified : Patient Instructions Indication:Acute ethmoidal sinusitis, recurrence not specified Otitis media : Patient Instr uctions Indication:Otitis media Family history of heart jen ck : Patient Instructions Indication:Family history of heart attack Name Dates Details How to access health informa tion online Indication:Postprandial abdominal bloating Start:06-Mar-2019 Instruction Type:Patient Education How to access health informa tion online - Detail Indication:Postprandial abdominal bloating Start:06-Mar-2019 Instruction Type:Patient Education Patient Instructions Indication:Postprandial abdominal bloating Start:06-Mar-2019 Instruction Type:Provider Instructions for Treatment How to access health informa tion online Indication:Nonsmoker Start:04-Jan-2019 Instruction Type:Patient Education How to access health informa tion online - Detail Indication:Nonsmoker Start:04-Jan-2019 Instruction Type:Patient Education Patient Instructions Indication:Nonsmoker Start:04-Jan-2019 Instruction Type:Provider Instructions for Treatment How to access health informa tion online Indication:Nonsmoker Start:12-Sep-2018 Instruction Type:Patient Education How to access health informa tion online - Detail Indication:Nonsmoker Start:12-Sep-2018 Instruction Type:Patient Education Patient Instructions Indication:Nonsmoker Start:12-Sep-2018 Instruction Type:Provider Instructions for Treatment How to access health informa tion online Indication:Acute sinusitis Start:27-Aug-2018 Instruction Type:Patient Education How to access health informa tion online - Detail Indication:Acute sinusitis Start:27-Aug-2018 Instruction Type:Patient Education Patient Instructions Indication:Acute sinusitis Start:27-Aug-2018 Instruction Type:Provider Instructions for Treatment How to access health informa tion online Indication:Nonsmoker Start:15-Dec-2017 Instruction Type:Patient Education How to access health informa tion online - Detail Indication:Nonsmoker Start:15-Dec-2017 Instruction Type:Patient Education Patient Instructions Indication:Nonsmoker Start:15-Dec-2017 Instruction Type:Provider Instructions for Treatment How to access health informa tion online Indication:Nonsmoker Start:23-Oct-2017 Instruction Type:Patient Education How to access health informa tion online - Detail Indication:Nonsmoker Start:23-Oct-2017 Instruction Type:Patient Education Patient Instructions Indication:Nonsmoker Start:23-Oct-2017 Instruction Type:Provider Instructions for Treatment How to access health informa tion online Indication:BMI between 19-24,adult Start:06-Jun-2017 Instruction Type:Patient Education How to access health informa tion online - Detail Indication:BMI between 19-24,adult Start:06-Jun-2017 Instruction Type:Patient Education Patient Instructions Indication:BMI between 19-24,adult Start:06-Jun-2017 Instruction Type:Provider Instructions for Treatment How to access health informa tion online Indication:Other hyperlipidemia Start:25-Jan-2017 Instruction Type:Patient Education How to access health informa tion online - Detail Indication:Other hyperlipidemia Start:25-Jan-2017 Instruction Type:Patient Education Patient Instructions Indication:Other hyperlipidemia Start:25-Jan-2017 Instruction Type:Provider Instructions for Treatment How to access health informa tion online Indication:BMI between 19-24,adult Start:19-Oct-2016 Instruction Type:Patient Education How to access health informa tion online - Detail Indication:BMI between 19-24,adult Start:19-Oct-2016 Instruction Type:Patient Education Patient Instructions Indication:BMI between 19-24,adult Start:19-Oct-2016 Instruction Type:Provider Instructions for Treatment How to access health informa tion online Indication:Postprandial abdominal bloating Start:04-May-2016 Instruction Type:Patient Education How to access health informa tion online - Detail Indication:Postprandial abdominal bloating Start:04-May-2016 Instruction Type:Patient Education Patient Instructions Indication:Postprandial abdominal bloating Start:04-May-2016 Instruction Type:Provider Instructions for Treatment How to access health informa tion online Indication:Other hyperlipidemia Start:02-Feb-2016 Instruction Type:Patient Education How to access health informa tion online - Detail Indication:Other hyperlipidemia Start:02-Feb-2016 Instruction Type:Patient Education Patient Instructions Indication:Other hyperlipidemia Start:02-Feb-2016 Instruction Type:Provider Instructions for Treatment How to access health informa tion online Indication:Weakness Start:01-Sep-2015 Instruction Type:Patient Education How to access health informa tion online - Detail Indication:Weakness Start:01-Sep-2015 Instruction Type:Patient Education Patient Instructions Indication:Weakness Start:01-Sep-2015 Instruction Type:Provider Instructions for Treatment Patient Instructions Indication:Rash (Renamed from Cutaneous eruption) Start:25-Aug-2015 Instruction Type:Provider Instructions for Treatment Patient Instructions Indication:Weakness Start:24-Aug-2015 Instruction Type:Provider Instructions for Treatment How to access health informa tion online Indication:Acute ethmoidal sinusitis, recurrence not specified Start:18-Aug-2015 Instruction Type:Patient Education How to access health informa tion online - Detail Indication:Acute ethmoidal sinusitis, recurrence not specified Start:18-Aug-2015 Instruction Type:Patient Education Patient Instructions Indication:Acute ethmoidal sinusitis, recurrence not specified Start:18-Aug-2015 Instruction Type:Provider Instructions for Treatment How to access health informa tion online Indication:Other hyperlipidemia Start:14-Jul-2015 Instruction Type:Patient Education How to access health informa tion online - Detail Indication:Other hyperlipidemia Start:14-Jul-2015 Instruction Type:Patient Education Patient Instructions Indication:Other hyperlipidemia Start:14-Jul-2015 Instruction Type:Provider Instructions for Treatment Patient Instructions Indication:Otitis media Start:15-Aug-2013 Instruction Type:Provider Instructions for Treatment Patient Instructions Indication:Family history of heart attack Start:05-Jul-2013 Instruction Type:Provider Instructions for Treatment Name Dates Details How to access health informa tion online Indication:Vaginal itching Start:09-Sep-2019 Instruction Type:Patient Education How to access health informa tion online - Detail Indication:Vaginal itching Start:09-Sep-2019 Instruction Type:Patient Education Patient Instructions Indication:Vaginal itching Start:09-Sep-2019 Instruction Type:Provider Instructions for Treatment How to access health informa tion online Indication:Postprandial abdominal bloating Start:06-Mar-2019 Instruction Type:Patient Education How to access health informa tion online - Detail Indication:Postprandial abdominal bloating Start:06-Mar-2019 Instruction Type:Patient Education Patient Instructions Indication:Postprandial abdominal bloating Start:06-Mar-2019 Instruction Type:Provider Instructions for Treatment How to access health informa tion online Indication:Nonsmoker Start:04-Jan-2019 Instruction Type:Patient Education How to access health informa tion online - Detail Indication:Nonsmoker Start:04-Jan-2019 Instruction Type:Patient Education Patient Instructions Indication:Nonsmoker Start:04-Jan-2019 Instruction Type:Provider Instructions for Treatment How to access health informa tion online Indication:Nonsmoker Start:12-Sep-2018 Instruction Type:Patient Education How to access health informa tion online - Detail Indication:Nonsmoker Start:12-Sep-2018 Instruction Type:Patient Education Patient Instructions Indication:Nonsmoker Start:12-Sep-2018 Instruction Type:Provider Instructions for Treatment How to access health informa tion online Indication:Acute sinusitis Start:27-Aug-2018 Instruction Type:Patient Education How to access health informa tion online - Detail Indication:Acute sinusitis Start:27-Aug-2018 Instruction Type:Patient Education Patient Instructions Indication:Acute sinusitis Start:27-Aug-2018 Instruction Type:Provider Instructions for Treatment How to access health informa tion online Indication:Nonsmoker Start:15-Dec-2017 Instruction Type:Patient Education How to access health informa tion online - Detail Indication:Nonsmoker Start:15-Dec-2017 Instruction Type:Patient Education Patient Instructions Indication:Nonsmoker Start:15-Dec-2017 Instruction Type:Provider Instructions for Treatment How to access health informa tion online Indication:Nonsmoker Start:23-Oct-2017 Instruction Type:Patient Education How to access health informa tion online - Detail Indication:Nonsmoker Start:23-Oct-2017 Instruction Type:Patient Education Patient Instructions Indication:Nonsmoker Start:23-Oct-2017 Instruction Type:Provider Instructions for Treatment How to access health informa tion online Indication:BMI between 19-24,adult Start:06-Jun-2017 Instruction Type:Patient Education How to access health informa tion online - Detail Indication:BMI between 19-24,adult Start:06-Jun-2017 Instruction Type:Patient Education Patient Instructions Indication:BMI between 19-24,adult Start:06-Jun-2017 Instruction Type:Provider Instructions for Treatment How to access health informa tion online Indication:Other hyperlipidemia Start:25-Jan-2017 Instruction Type:Patient Education How to access health informa tion online - Detail Indication:Other hyperlipidemia Start:25-Jan-2017 Instruction Type:Patient Education Patient Instructions Indication:Other hyperlipidemia Start:25-Jan-2017 Instruction Type:Provider Instructions for Treatment How to access health informa tion online Indication:BMI between 19-24,adult Start:19-Oct-2016 Instruction Type:Patient Education How to access health informa tion online - Detail Indication:BMI between 19-24,adult Start:19-Oct-2016 Instruction Type:Patient Education Patient Instructions Indication:BMI between 19-24,adult Start:19-Oct-2016 Instruction Type:Provider Instructions for Treatment How to access health informa tion online Indication:Postprandial abdominal bloating Start:04-May-2016 Instruction Type:Patient Education How to access health informa tion online - Detail Indication:Postprandial abdominal bloating Start:04-May-2016 Instruction Type:Patient Education Patient Instructions Indication:Postprandial abdominal bloating Start:04-May-2016 Instruction Type:Provider Instructions for Treatment How to access health informa tion online Indication:Other hyperlipidemia Start:02-Feb-2016 Instruction Type:Patient Education How to access health informa tion online - Detail Indication:Other hyperlipidemia Start:02-Feb-2016 Instruction Type:Patient Education Patient Instructions Indication:Other hyperlipidemia Start:02-Feb-2016 Instruction Type:Provider Instructions for Treatment How to access health informa tion online Indication:Weakness Start:01-Sep-2015 Instruction Type:Patient Education How to access health informa tion online - Detail Indication:Weakness Start:01-Sep-2015 Instruction Type:Patient Education Patient Instructions Indication:Weakness Start:01-Sep-2015 Instruction Type:Provider Instructions for Treatment Patient Instructions Indication:Rash (Renamed from Cutaneous eruption) Start:25-Aug-2015 Instruction Type:Provider Instructions for Treatment Patient Instructions Indication:Weakness Start:24-Aug-2015 Instruction Type:Provider Instructions for Treatment How to access health informa tion online Indication:Acute ethmoidal sinusitis, recurrence not specified Start:18-Aug-2015 Instruction Type:Patient Education How to access health informa tion online - Detail Indication:Acute ethmoidal sinusitis, recurrence not specified Start:18-Aug-2015 Instruction Type:Patient Education Patient Instructions Indication:Acute ethmoidal sinusitis, recurrence not specified Start:18-Aug-2015 Instruction Type:Provider Instructions for Treatment How to access health informa tion online Indication:Other hyperlipidemia Start:14-Jul-2015 Instruction Type:Patient Education How to access health informa tion online - Detail Indication:Other hyperlipidemia Start:14-Jul-2015 Instruction Type:Patient Education Patient Instructions Indication:Other hyperlipidemia Start:14-Jul-2015 Instruction Type:Provider Instructions for Treatment Patient Instructions Indication:Otitis media Start:15-Aug-2013 Instruction Type:Provider Instructions for Treatment Patient Instructions Indication:Family history of heart attack Start:05-Jul-2013 Instruction Type:Provider Instructions for Treatment Name Dates Details How to access health informa tion online Indication:Nonsmoker Start:23-Sep-2019 Instruction Type:Patient Education How to access health informa tion online - Detail Indication:Nonsmoker Start:23-Sep-2019 Instruction Type:Patient Education Patient Instructions Indication:Nonsmoker Start:23-Sep-2019 Instruction Type:Provider Instructions for Treatment How to access health informa tion online Indication:Vaginal itching Start:09-Sep-2019 Instruction Type:Patient Education How to access health informa tion online - Detail Indication:Vaginal itching Start:09-Sep-2019 Instruction Type:Patient Education Patient Instructions Indication:Vaginal itching Start:09-Sep-2019 Instruction Type:Provider Instructions for Treatment How to access health informa tion online Indication:Postprandial abdominal bloating Start:06-Mar-2019 Instruction Type:Patient Education How to access health informa tion online - Detail Indication:Postprandial abdominal bloating Start:06-Mar-2019 Instruction Type:Patient Education Patient Instructions Indication:Postprandial abdominal bloating Start:06-Mar-2019 Instruction Type:Provider Instructions for Treatment How to access health informa tion online Indication:Nonsmoker Start:04-Jan-2019 Instruction Type:Patient Education How to access health informa tion online - Detail Indication:Nonsmoker Start:04-Jan-2019 Instruction Type:Patient Education Patient Instructions Indication:Nonsmoker Start:04-Jan-2019 Instruction Type:Provider Instructions for Treatment How to access health informa tion online Indication:Nonsmoker Start:12-Sep-2018 Instruction Type:Patient Education How to access health informa tion online - Detail Indication:Nonsmoker Start:12-Sep-2018 Instruction Type:Patient Education Patient Instructions Indication:Nonsmoker Start:12-Sep-2018 Instruction Type:Provider Instructions for Treatment How to access health informa tion online Indication:Acute sinusitis Start:27-Aug-2018 Instruction Type:Patient Education How to access health informa tion online - Detail Indication:Acute sinusitis Start:27-Aug-2018 Instruction Type:Patient Education Patient Instructions Indication:Acute sinusitis Start:27-Aug-2018 Instruction Type:Provider Instructions for Treatment How to access health informa tion online Indication:Nonsmoker Start:15-Dec-2017 Instruction Type:Patient Education How to access health informa tion online - Detail Indication:Nonsmoker Start:15-Dec-2017 Instruction Type:Patient Education Patient Instructions Indication:Nonsmoker Start:15-Dec-2017 Instruction Type:Provider Instructions for Treatment How to access health informa tion online Indication:Nonsmoker Start:23-Oct-2017 Instruction Type:Patient Education How to access health informa tion online - Detail Indication:Nonsmoker Start:23-Oct-2017 Instruction Type:Patient Education Patient Instructions Indication:Nonsmoker Start:23-Oct-2017 Instruction Type:Provider Instructions for Treatment How to access health informa tion online Indication:BMI between 19-24,adult Start:06-Jun-2017 Instruction Type:Patient Education How to access health informa tion online - Detail Indication:BMI between 19-24,adult Start:06-Jun-2017 Instruction Type:Patient Education Patient Instructions Indication:BMI between 19-24,adult Start:06-Jun-2017 Instruction Type:Provider Instructions for Treatment How to access health informa tion online Indication:Other hyperlipidemia Start:25-Jan-2017 Instruction Type:Patient Education How to access health informa tion online - Detail Indication:Other hyperlipidemia Start:25-Jan-2017 Instruction Type:Patient Education Patient Instructions Indication:Other hyperlipidemia Start:25-Jan-2017 Instruction Type:Provider Instructions for Treatment How to access health informa tion online Indication:BMI between 19-24,adult Start:19-Oct-2016 Instruction Type:Patient Education How to access health informa tion online - Detail Indication:BMI between 19-24,adult Start:19-Oct-2016 Instruction Type:Patient Education Patient Instructions Indication:BMI between 19-24,adult Start:19-Oct-2016 Instruction Type:Provider Instructions for Treatment How to access health informa tion online Indication:Postprandial abdominal bloating Start:04-May-2016 Instruction Type:Patient Education How to access health informa tion online - Detail Indication:Postprandial abdominal bloating Start:04-May-2016 Instruction Type:Patient Education Patient Instructions Indication:Postprandial abdominal bloating Start:04-May-2016 Instruction Type:Provider Instructions for Treatment How to access health informa tion online Indication:Other hyperlipidemia Start:02-Feb-2016 Instruction Type:Patient Education How to access health informa tion online - Detail Indication:Other hyperlipidemia Start:02-Feb-2016 Instruction Type:Patient Education Patient Instructions Indication:Other hyperlipidemia Start:02-Feb-2016 Instruction Type:Provider Instructions for Treatment How to access health informa tion online Indication:Weakness Start:01-Sep-2015 Instruction Type:Patient Education How to access health informa tion online - Detail Indication:Weakness Start:01-Sep-2015 Instruction Type:Patient Education Patient Instructions Indication:Weakness Start:01-Sep-2015 Instruction Type:Provider Instructions for Treatment Patient Instructions Indication:Rash (Renamed from Cutaneous eruption) Start:25-Aug-2015 Instruction Type:Provider Instructions for Treatment Patient Instructions Indication:Weakness Start:24-Aug-2015 Instruction Type:Provider Instructions for Treatment How to access health informa tion online Indication:Acute ethmoidal sinusitis, recurrence not specified Start:18-Aug-2015 Instruction Type:Patient Education How to access health informa tion online - Detail Indication:Acute ethmoidal sinusitis, recurrence not specified Start:18-Aug-2015 Instruction Type:Patient Education Patient Instructions Indication:Acute ethmoidal sinusitis, recurrence not specified Start:18-Aug-2015 Instruction Type:Provider Instructions for Treatment How to access health informa tion online Indication:Other hyperlipidemia Start:14-Jul-2015 Instruction Type:Patient Education How to access health informa tion online - Detail Indication:Other hyperlipidemia Start:14-Jul-2015 Instruction Type:Patient Education Patient Instructions Indication:Other hyperlipidemia Start:14-Jul-2015 Instruction Type:Provider Instructions for Treatment Patient Instructions Indication:Otitis media Start:15-Aug-2013 Instruction Type:Provider Instructions for Treatment Patient Instructions Indication:Family history of heart attack Start:05-Jul-2013 Instruction Type:Provider Instructions for Treatment Name Dates Details How to access health informa tion online Indication:Vaginal irritation Start:23-Mar-2020 Instruction Type:Patient Education How to access health informa tion online - Detail Indication:Vaginal irritation Start:23-Mar-2020 Instruction Type:Patient Education Patient Instructions Indication:Vaginal irritation Start:23-Mar-2020 Instruction Type:Provider Instructions for Treatment How to access health informa tion online Indication:BMI 24.0-24.9, adult Start:08-Jan-2020 Instruction Type:Patient Education How to access health informa tion online - Detail Indication:BMI 24.0-24.9, adult Start:08-Jan-2020 Instruction Type:Patient Education Patient Instructions Indication:BMI 24.0-24.9, adult Start:08-Jan-2020 Instruction Type:Provider Instructions for Treatment How to access health informa tion online Indication:Nonsmoker Start:23-Sep-2019 Instruction Type:Patient Education How to access health informa tion online - Detail Indication:Nonsmoker Start:23-Sep-2019 Instruction Type:Patient Education Patient Instructions Indication:Nonsmoker Start:23-Sep-2019 Instruction Type:Provider Instructions for Treatment How to access health informa tion online Indication:Vaginal itching Start:09-Sep-2019 Instruction Type:Patient Education How to access health informa tion online - Detail Indication:Vaginal itching Start:09-Sep-2019 Instruction Type:Patient Education Patient Instructions Indication:Vaginal itching Start:09-Sep-2019 Instruction Type:Provider Instructions for Treatment How to access health informa tion online Indication:Postprandial abdominal bloating Start:06-Mar-2019 Instruction Type:Patient Education How to access health informa tion online - Detail Indication:Postprandial abdominal bloating Start:06-Mar-2019 Instruction Type:Patient Education Patient Instructions Indication:Postprandial abdominal bloating Start:06-Mar-2019 Instruction Type:Provider Instructions for Treatment How to access health informa tion online Indication:Nonsmoker Start:04-Jan-2019 Instruction Type:Patient Education How to access health informa tion online - Detail Indication:Nonsmoker Start:04-Jan-2019 Instruction Type:Patient Education Patient Instructions Indication:Nonsmoker Start:04-Jan-2019 Instruction Type:Provider Instructions for Treatment How to access health informa tion online Indication:Nonsmoker Start:12-Sep-2018 Instruction Type:Patient Education How to access health informa tion online - Detail Indication:Nonsmoker Start:12-Sep-2018 Instruction Type:Patient Education Patient Instructions Indication:Nonsmoker Start:12-Sep-2018 Instruction Type:Provider Instructions for Treatment How to access health informa tion online Indication:Acute sinusitis Start:27-Aug-2018 Instruction Type:Patient Education How to access health informa tion online - Detail Indication:Acute sinusitis Start:27-Aug-2018 Instruction Type:Patient Education Patient Instructions Indication:Acute sinusitis Start:27-Aug-2018 Instruction Type:Provider Instructions for Treatment How to access health informa tion online Indication:Nonsmoker Start:15-Dec-2017 Instruction Type:Patient Education How to access health informa tion online - Detail Indication:Nonsmoker Start:15-Dec-2017 Instruction Type:Patient Education Patient Instructions Indication:Nonsmoker Start:15-Dec-2017 Instruction Type:Provider Instructions for Treatment How to access health informa tion online Indication:Nonsmoker Start:23-Oct-2017 Instruction Type:Patient Education How to access health informa tion online - Detail Indication:Nonsmoker Start:23-Oct-2017 Instruction Type:Patient Education Patient Instructions Indication:Nonsmoker Start:23-Oct-2017 Instruction Type:Provider Instructions for Treatment How to access health informa tion online Indication:BMI between 19-24,adult Start:06-Jun-2017 Instruction Type:Patient Education How to access health informa tion online - Detail Indication:BMI between 19-24,adult Start:06-Jun-2017 Instruction Type:Patient Education Patient Instructions Indication:BMI between 19-24,adult Start:06-Jun-2017 Instruction Type:Provider Instructions for Treatment How to access health informa tion online Indication:Other hyperlipidemia Start:25-Jan-2017 Instruction Type:Patient Education How to access health informa tion online - Detail Indication:Other hyperlipidemia Start:25-Jan-2017 Instruction Type:Patient Education Patient Instructions Indication:Other hyperlipidemia Start:25-Jan-2017 Instruction Type:Provider Instructions for Treatment How to access health informa tion online Indication:BMI between 19-24,adult Start:19-Oct-2016 Instruction Type:Patient Education How to access health informa tion online - Detail Indication:BMI between 19-24,adult Start:19-Oct-2016 Instruction Type:Patient Education Patient Instructions Indication:BMI between 19-24,adult Start:19-Oct-2016 Instruction Type:Provider Instructions for Treatment How to access health informa tion online Indication:Postprandial abdominal bloating Start:04-May-2016 Instruction Type:Patient Education How to access health informa tion online - Detail Indication:Postprandial abdominal bloating Start:04-May-2016 Instruction Type:Patient Education Patient Instructions Indication:Postprandial abdominal bloating Start:04-May-2016 Instruction Type:Provider Instructions for Treatment How to access health informa tion online Indication:Other hyperlipidemia Start:02-Feb-2016 Instruction Type:Patient Education How to access health informa tion online - Detail Indication:Other hyperlipidemia Start:02-Feb-2016 Instruction Type:Patient Education Patient Instructions Indication:Other hyperlipidemia Start:02-Feb-2016 Instruction Type:Provider Instructions for Treatment How to access health informa tion online Indication:Weakness Start:01-Sep-2015 Instruction Type:Patient Education How to access health informa tion online - Detail Indication:Weakness Start:01-Sep-2015 Instruction Type:Patient Education Patient Instructions Indication:Weakness Start:01-Sep-2015 Instruction Type:Provider Instructions for Treatment Patient Instructions Indication:Rash (Renamed from Cutaneous eruption) Start:25-Aug-2015 Instruction Type:Provider Instructions for Treatment Patient Instructions Indication:Weakness Start:24-Aug-2015 Instruction Type:Provider Instructions for Treatment How to access health informa tion online Indication:Acute ethmoidal sinusitis, recurrence not specified Start:18-Aug-2015 Instruction Type:Patient Education How to access health informa tion online - Detail Indication:Acute ethmoidal sinusitis, recurrence not specified Start:18-Aug-2015 Instruction Type:Patient Education Patient Instructions Indication:Acute ethmoidal sinusitis, recurrence not specified Start:18-Aug-2015 Instruction Type:Provider Instructions for Treatment How to access health informa tion online Indication:Other hyperlipidemia Start:14-Jul-2015 Instruction Type:Patient Education How to access health informa tion online - Detail Indication:Other hyperlipidemia Start:14-Jul-2015 Instruction Type:Patient Education Patient Instructions Indication:Other hyperlipidemia Start:14-Jul-2015 Instruction Type:Provider Instructions for Treatment Patient Instructions Indication:Otitis media Start:15-Aug-2013 Instruction Type:Provider Instructions for Treatment Patient Instructions Indication:Family history of heart attack Start:05-Jul-2013 Instruction Type:Provider Instructions for Treatment Name Dates Details How to access health informa tion online Indication:Vaginal irritation Start:23-Mar-2020 Instruction Type:Patient Education How to access health informa tion online - Detail Indication:Vaginal irritation Start:23-Mar-2020 Instruction Type:Patient Education Patient Instructions Indication:Vaginal irritation Start:23-Mar-2020 Instruction Type:Provider Instructions for Treatment How to access health informa tion online Indication:BMI 24.0-24.9, adult Start:08-Jan-2020 Instruction Type:Patient Education How to access health informa tion online - Detail Indication:BMI 24.0-24.9, adult Start:08-Jan-2020 Instruction Type:Patient Education Patient Instructions Indication:BMI 24.0-24.9, adult Start:08-Jan-2020 Instruction Type:Provider Instructions for Treatment How to access health informa tion online Indication:Nonsmoker Start:23-Sep-2019 Instruction Type:Patient Education How to access health informa tion online - Detail Indication:Nonsmoker Start:23-Sep-2019 Instruction Type:Patient Education Patient Instructions Indication:Nonsmoker Start:23-Sep-2019 Instruction Type:Provider Instructions for Treatment How to access health informa tion online Indication:Vaginal itching Start:09-Sep-2019 Instruction Type:Patient Education How to access health informa tion online - Detail Indication:Vaginal itching Start:09-Sep-2019 Instruction Type:Patient Education Patient Instructions Indication:Vaginal itching Start:09-Sep-2019 Instruction Type:Provider Instructions for Treatment How to access health informa tion online Indication:Postprandial abdominal bloating Start:06-Mar-2019 Instruction Type:Patient Education How to access health informa tion online - Detail Indication:Postprandial abdominal bloating Start:06-Mar-2019 Instruction Type:Patient Education Patient Instructions Indication:Postprandial abdominal bloating Start:06-Mar-2019 Instruction Type:Provider Instructions for Treatment How to access health informa tion online Indication:Nonsmoker Start:04-Jan-2019 Instruction Type:Patient Education How to access health informa tion online - Detail Indication:Nonsmoker Start:04-Jan-2019 Instruction Type:Patient Education Patient Instructions Indication:Nonsmoker Start:04-Jan-2019 Instruction Type:Provider Instructions for Treatment How to access health informa tion online Indication:Nonsmoker Start:12-Sep-2018 Instruction Type:Patient Education How to access health informa tion online - Detail Indication:Nonsmoker Start:12-Sep-2018 Instruction Type:Patient Education Patient Instructions Indication:Nonsmoker Start:12-Sep-2018 Instruction Type:Provider Instructions for Treatment How to access health informa tion online Indication:Acute sinusitis Start:27-Aug-2018 Instruction Type:Patient Education How to access health informa tion online - Detail Indication:Acute sinusitis Start:27-Aug-2018 Instruction Type:Patient Education Patient Instructions Indication:Acute sinusitis Start:27-Aug-2018 Instruction Type:Provider Instructions for Treatment How to access health informa tion online Indication:Nonsmoker Start:15-Dec-2017 Instruction Type:Patient Education How to access health informa tion online - Detail Indication:Nonsmoker Start:15-Dec-2017 Instruction Type:Patient Education Patient Instructions Indication:Nonsmoker Start:15-Dec-2017 Instruction Type:Provider Instructions for Treatment How to access health informa tion online Indication:Nonsmoker Start:23-Oct-2017 Instruction Type:Patient Education How to access health informa tion online - Detail Indication:Nonsmoker Start:23-Oct-2017 Instruction Type:Patient Education Patient Instructions Indication:Nonsmoker Start:23-Oct-2017 Instruction Type:Provider Instructions for Treatment How to access health informa tion online Indication:BMI between 19-24,adult Start:06-Jun-2017 Instruction Type:Patient Education How to access health informa tion online - Detail Indication:BMI between 19-24,adult Start:06-Jun-2017 Instruction Type:Patient Education Patient Instructions Indication:BMI between 19-24,adult Start:06-Jun-2017 Instruction Type:Provider Instructions for Treatment How to access health informa tion online Indication:Other hyperlipidemia Start:25-Jan-2017 Instruction Type:Patient Education How to access health informa tion online - Detail Indication:Other hyperlipidemia Start:25-Jan-2017 Instruction Type:Patient Education Patient Instructions Indication:Other hyperlipidemia Start:25-Jan-2017 Instruction Type:Provider Instructions for Treatment How to access health informa tion online Indication:BMI between 19-24,adult Start:19-Oct-2016 Instruction Type:Patient Education How to access health informa tion online - Detail Indication:BMI between 19-24,adult Start:19-Oct-2016 Instruction Type:Patient Education Patient Instructions Indication:BMI between 19-24,adult Start:19-Oct-2016 Instruction Type:Provider Instructions for Treatment How to access health informa tion online Indication:Postprandial abdominal bloating Start:04-May-2016 Instruction Type:Patient Education How to access health informa tion online - Detail Indication:Postprandial abdominal bloating Start:04-May-2016 Instruction Type:Patient Education Patient Instructions Indication:Postprandial abdominal bloating Start:04-May-2016 Instruction Type:Provider Instructions for Treatment How to access health informa tion online Indication:Other hyperlipidemia Start:02-Feb-2016 Instruction Type:Patient Education How to access health informa tion online - Detail Indication:Other hyperlipidemia Start:02-Feb-2016 Instruction Type:Patient Education Patient Instructions Indication:Other hyperlipidemia Start:02-Feb-2016 Instruction Type:Provider Instructions for Treatment How to access health informa tion online Indication:Weakness Start:01-Sep-2015 Instruction Type:Patient Education How to access health informa tion online - Detail Indication:Weakness Start:01-Sep-2015 Instruction Type:Patient Education Patient Instructions Indication:Weakness Start:01-Sep-2015 Instruction Type:Provider Instructions for Treatment Patient Instructions Indication:Rash (Renamed from Cutaneous eruption) Start:25-Aug-2015 Instruction Type:Provider Instructions for Treatment Patient Instructions Indication:Weakness Start:24-Aug-2015 Instruction Type:Provider Instructions for Treatment How to access health informa tion online Indication:Acute ethmoidal sinusitis, recurrence not specified Start:18-Aug-2015 Instruction Type:Patient Education How to access health informa tion online - Detail Indication:Acute ethmoidal sinusitis, recurrence not specified Start:18-Aug-2015 Instruction Type:Patient Education Patient Instructions Indication:Acute ethmoidal sinusitis, recurrence not specified Start:18-Aug-2015 Instruction Type:Provider Instructions for Treatment How to access health informa tion online Indication:Other hyperlipidemia Start:14-Jul-2015 Instruction Type:Patient Education How to access health informa tion online - Detail Indication:Other hyperlipidemia Start:14-Jul-2015 Instruction Type:Patient Education Patient Instructions Indication:Other hyperlipidemia Start:14-Jul-2015 Instruction Type:Provider Instructions for Treatment Patient Instructions Indication:Otitis media Start:15-Aug-2013 Instruction Type:Provider Instructions for Treatment Patient Instructions Indication:Family history of heart attack Start:05-Jul-2013 Instruction Type:Provider Instructions for Treatment Name Dates Details How to access health informa tion online Indication:Vaginal irritation Start:23-Mar-2020 Instruction Type:Patient Education How to access health informa tion online - Detail Indication:Vaginal irritation Start:23-Mar-2020 Instruction Type:Patient Education Patient Instructions Indication:Vaginal irritation Start:23-Mar-2020 Instruction Type:Provider Instructions for Treatment How to access health informa tion online Indication:BMI 24.0-24.9, adult Start:08-Jan-2020 Instruction Type:Patient Education How to access health informa tion online - Detail Indication:BMI 24.0-24.9, adult Start:08-Jan-2020 Instruction Type:Patient Education Patient Instructions Indication:BMI 24.0-24.9, adult Start:08-Jan-2020 Instruction Type:Provider Instructions for Treatment How to access health informa tion online Indication:Nonsmoker Start:23-Sep-2019 Instruction Type:Patient Education How to access health informa tion online - Detail Indication:Nonsmoker Start:23-Sep-2019 Instruction Type:Patient Education Patient Instructions Indication:Nonsmoker Start:23-Sep-2019 Instruction Type:Provider Instructions for Treatment How to access health informa tion online Indication:Vaginal itching Start:09-Sep-2019 Instruction Type:Patient Education How to access health informa tion online - Detail Indication:Vaginal itching Start:09-Sep-2019 Instruction Type:Patient Education Patient Instructions Indication:Vaginal itching Start:09-Sep-2019 Instruction Type:Provider Instructions for Treatment How to access health informa tion online Indication:Postprandial abdominal bloating Start:06-Mar-2019 Instruction Type:Patient Education How to access health informa tion online - Detail Indication:Postprandial abdominal bloating Start:06-Mar-2019 Instruction Type:Patient Education Patient Instructions Indication:Postprandial abdominal bloating Start:06-Mar-2019 Instruction Type:Provider Instructions for Treatment How to access health informa tion online Indication:Nonsmoker Start:04-Jan-2019 Instruction Type:Patient Education How to access health informa tion online - Detail Indication:Nonsmoker Start:04-Jan-2019 Instruction Type:Patient Education Patient Instructions Indication:Nonsmoker Start:04-Jan-2019 Instruction Type:Provider Instructions for Treatment How to access health informa tion online Indication:Nonsmoker Start:12-Sep-2018 Instruction Type:Patient Education How to access health informa tion online - Detail Indication:Nonsmoker Start:12-Sep-2018 Instruction Type:Patient Education Patient Instructions Indication:Nonsmoker Start:12-Sep-2018 Instruction Type:Provider Instructions for Treatment How to access health informa tion online Indication:Acute sinusitis Start:27-Aug-2018 Instruction Type:Patient Education How to access health informa tion online - Detail Indication:Acute sinusitis Start:27-Aug-2018 Instruction Type:Patient Education Patient Instructions Indication:Acute sinusitis Start:27-Aug-2018 Instruction Type:Provider Instructions for Treatment How to access health informa tion online Indication:Nonsmoker Start:15-Dec-2017 Instruction Type:Patient Education How to access health informa tion online - Detail Indication:Nonsmoker Start:15-Dec-2017 Instruction Type:Patient Education Patient Instructions Indication:Nonsmoker Start:15-Dec-2017 Instruction Type:Provider Instructions for Treatment How to access health informa tion online Indication:Nonsmoker Start:23-Oct-2017 Instruction Type:Patient Education How to access health informa tion online - Detail Indication:Nonsmoker Start:23-Oct-2017 Instruction Type:Patient Education Patient Instructions Indication:Nonsmoker Start:23-Oct-2017 Instruction Type:Provider Instructions for Treatment How to access health informa tion online Indication:BMI between 19-24,adult Start:06-Jun-2017 Instruction Type:Patient Education How to access health informa tion online - Detail Indication:BMI between 19-24,adult Start:06-Jun-2017 Instruction Type:Patient Education Patient Instructions Indication:BMI between 19-24,adult Start:06-Jun-2017 Instruction Type:Provider Instructions for Treatment How to access health informa tion online Indication:Other hyperlipidemia Start:25-Jan-2017 Instruction Type:Patient Education How to access health informa tion online - Detail Indication:Other hyperlipidemia Start:25-Jan-2017 Instruction Type:Patient Education Patient Instructions Indication:Other hyperlipidemia Start:25-Jan-2017 Instruction Type:Provider Instructions for Treatment How to access health informa tion online Indication:BMI between 19-24,adult Start:19-Oct-2016 Instruction Type:Patient Education How to access health informa tion online - Detail Indication:BMI between 19-24,adult Start:19-Oct-2016 Instruction Type:Patient Education Patient Instructions Indication:BMI between 19-24,adult Start:19-Oct-2016 Instruction Type:Provider Instructions for Treatment How to access health informa tion online Indication:Postprandial abdominal bloating Start:04-May-2016 Instruction Type:Patient Education How to access health informa tion online - Detail Indication:Postprandial abdominal bloating Start:04-May-2016 Instruction Type:Patient Education Patient Instructions Indication:Postprandial abdominal bloating Start:04-May-2016 Instruction Type:Provider Instructions for Treatment How to access health informa tion online Indication:Other hyperlipidemia Start:02-Feb-2016 Instruction Type:Patient Education How to access health informa tion online - Detail Indication:Other hyperlipidemia Start:02-Feb-2016 Instruction Type:Patient Education Patient Instructions Indication:Other hyperlipidemia Start:02-Feb-2016 Instruction Type:Provider Instructions for Treatment How to access health informa tion online Indication:Weakness Start:01-Sep-2015 Instruction Type:Patient Education How to access health informa tion online - Detail Indication:Weakness Start:01-Sep-2015 Instruction Type:Patient Education Patient Instructions Indication:Weakness Start:01-Sep-2015 Instruction Type:Provider Instructions for Treatment Patient Instructions Indication:Rash (Renamed from Cutaneous eruption) Start:25-Aug-2015 Instruction Type:Provider Instructions for Treatment Patient Instructions Indication:Weakness Start:24-Aug-2015 Instruction Type:Provider Instructions for Treatment How to access health informa tion online Indication:Acute ethmoidal sinusitis, recurrence not specified Start:18-Aug-2015 Instruction Type:Patient Education How to access health informa tion online - Detail Indication:Acute ethmoidal sinusitis, recurrence not specified Start:18-Aug-2015 Instruction Type:Patient Education Patient Instructions Indication:Acute ethmoidal sinusitis, recurrence not specified Start:18-Aug-2015 Instruction Type:Provider Instructions for Treatment How to access health informa tion online Indication:Other hyperlipidemia Start:14-Jul-2015 Instruction Type:Patient Education How to access health informa tion online - Detail Indication:Other hyperlipidemia Start:14-Jul-2015 Instruction Type:Patient Education Patient Instructions Indication:Other hyperlipidemia Start:14-Jul-2015 Instruction Type:Provider Instructions for Treatment Patient Instructions Indication:Otitis media Start:15-Aug-2013 Instruction Type:Provider Instructions for Treatment Patient Instructions Indication:Family history of heart attack Start:05-Jul-2013 Instruction Type:Provider Instructions for Treatment Name Dates Details Patient Instructions Indication:Nonsmoker Start:10-Nov-2020 Instruction Type:Provider Instructions for Treatment How to Access Health Informa tion Online using Patient Portal and [employer] Apps Indication:Nonsmoker Start:10-Nov-2020 Instruction Type:Patient Education How to access health informa tion online Indication:Vaginal irritation Start:23-Mar-2020 Instruction Type:Patient Education How to access health informa tion online - Detail Indication:Vaginal irritation Start:23-Mar-2020 Instruction Type:Patient Education Patient Instructions Indication:Vaginal irritation Start:23-Mar-2020 Instruction Type:Provider Instructions for Treatment How to access health informa tion online Indication:BMI 24.0-24.9, adult Start:08-Jan-2020 Instruction Type:Patient Education How to access health informa tion online - Detail Indication:BMI 24.0-24.9, adult Start:08-Jan-2020 Instruction Type:Patient Education Patient Instructions Indication:BMI 24.0-24.9, adult Start:08-Jan-2020 Instruction Type:Provider Instructions for Treatment How to access health informa tion online Indication:Nonsmoker Start:23-Sep-2019 Instruction Type:Patient Education How to access health informa tion online - Detail Indication:Nonsmoker Start:23-Sep-2019 Instruction Type:Patient Education Patient Instructions Indication:Nonsmoker Start:23-Sep-2019 Instruction Type:Provider Instructions for Treatment How to access health informa tion online Indication:Vaginal itching Start:09-Sep-2019 Instruction Type:Patient Education How to access health informa tion online - Detail Indication:Vaginal itching Start:09-Sep-2019 Instruction Type:Patient Education Patient Instructions Indication:Vaginal itching Start:09-Sep-2019 Instruction Type:Provider Instructions for Treatment How to access health informa tion online Indication:Postprandial abdominal bloating Start:06-Mar-2019 Instruction Type:Patient Education How to access health informa tion online - Detail Indication:Postprandial abdominal bloating Start:06-Mar-2019 Instruction Type:Patient Education Patient Instructions Indication:Postprandial abdominal bloating Start:06-Mar-2019 Instruction Type:Provider Instructions for Treatment How to access health informa tion online Indication:Nonsmoker Start:04-Jan-2019 Instruction Type:Patient Education How to access health informa tion online - Detail Indication:Nonsmoker Start:04-Jan-2019 Instruction Type:Patient Education Patient Instructions Indication:Nonsmoker Start:04-Jan-2019 Instruction Type:Provider Instructions for Treatment How to access health informa tion online Indication:Nonsmoker Start:12-Sep-2018 Instruction Type:Patient Education How to access health informa tion online - Detail Indication:Nonsmoker Start:12-Sep-2018 Instruction Type:Patient Education Patient Instructions Indication:Nonsmoker Start:12-Sep-2018 Instruction Type:Provider Instructions for Treatment How to access health informa tion online Indication:Acute sinusitis Start:27-Aug-2018 Instruction Type:Patient Education How to access health informa tion online - Detail Indication:Acute sinusitis Start:27-Aug-2018 Instruction Type:Patient Education Patient Instructions Indication:Acute sinusitis Start:27-Aug-2018 Instruction Type:Provider Instructions for Treatment How to access health informa tion online Indication:Nonsmoker Start:15-Dec-2017 Instruction Type:Patient Education How to access health informa tion online - Detail Indication:Nonsmoker Start:15-Dec-2017 Instruction Type:Patient Education Patient Instructions Indication:Nonsmoker Start:15-Dec-2017 Instruction Type:Provider Instructions for Treatment How to access health informa tion online Indication:Nonsmoker Start:23-Oct-2017 Instruction Type:Patient Education How to access health informa tion online - Detail Indication:Nonsmoker Start:23-Oct-2017 Instruction Type:Patient Education Patient Instructions Indication:Nonsmoker Start:23-Oct-2017 Instruction Type:Provider Instructions for Treatment How to access health informa tion online Indication:BMI between 19-24,adult Start:06-Jun-2017 Instruction Type:Patient Education How to access health informa tion online - Detail Indication:BMI between 19-24,adult Start:06-Jun-2017 Instruction Type:Patient Education Patient Instructions Indication:BMI between 19-24,adult Start:06-Jun-2017 Instruction Type:Provider Instructions for Treatment How to access health informa tion online Indication:Other hyperlipidemia Start:25-Jan-2017 Instruction Type:Patient Education How to access health informa tion online - Detail Indication:Other hyperlipidemia Start:25-Jan-2017 Instruction Type:Patient Education Patient Instructions Indication:Other hyperlipidemia Start:25-Jan-2017 Instruction Type:Provider Instructions for Treatment How to access health informa tion online Indication:BMI between 19-24,adult Start:19-Oct-2016 Instruction Type:Patient Education How to access health informa tion online - Detail Indication:BMI between 19-24,adult Start:19-Oct-2016 Instruction Type:Patient Education Patient Instructions Indication:BMI between 19-24,adult Start:19-Oct-2016 Instruction Type:Provider Instructions for Treatment How to access health informa tion online Indication:Postprandial abdominal bloating Start:04-May-2016 Instruction Type:Patient Education How to access health informa tion online - Detail Indication:Postprandial abdominal bloating Start:04-May-2016 Instruction Type:Patient Education Patient Instructions Indication:Postprandial abdominal bloating Start:04-May-2016 Instruction Type:Provider Instructions for Treatment How to access health informa tion online Indication:Other hyperlipidemia Start:02-Feb-2016 Instruction Type:Patient Education How to access health informa tion online - Detail Indication:Other hyperlipidemia Start:02-Feb-2016 Instruction Type:Patient Education Patient Instructions Indication:Other hyperlipidemia Start:02-Feb-2016 Instruction Type:Provider Instructions for Treatment How to access health informa tion online Indication:Weakness Start:01-Sep-2015 Instruction Type:Patient Education How to access health informa tion online - Detail Indication:Weakness Start:01-Sep-2015 Instruction Type:Patient Education Patient Instructions Indication:Weakness Start:01-Sep-2015 Instruction Type:Provider Instructions for Treatment Patient Instructions Indication:Rash (Renamed from Cutaneous eruption) Start:25-Aug-2015 Instruction Type:Provider Instructions for Treatment Patient Instructions Indication:Weakness Start:24-Aug-2015 Instruction Type:Provider Instructions for Treatment How to access health informa tion online Indication:Acute ethmoidal sinusitis, recurrence not specified Start:18-Aug-2015 Instruction Type:Patient Education How to access health informa tion online - Detail Indication:Acute ethmoidal sinusitis, recurrence not specified Start:18-Aug-2015 Instruction Type:Patient Education Patient Instructions Indication:Acute ethmoidal sinusitis, recurrence not specified Start:18-Aug-2015 Instruction Type:Provider Instructions for Treatment How to access health informa tion online Indication:Other hyperlipidemia Start:14-Jul-2015 Instruction Type:Patient Education How to access health informa tion online - Detail Indication:Other hyperlipidemia Start:14-Jul-2015 Instruction Type:Patient Education Patient Instructions Indication:Other hyperlipidemia Start:14-Jul-2015 Instruction Type:Provider Instructions for Treatment Patient Instructions Indication:Otitis media Start:15-Aug-2013 Instruction Type:Provider Instructions for Treatment Patient Instructions Indication:Family history of heart attack Start:05-Jul-2013 Instruction Type:Provider Instructions for Treatment Name Dates Details Patient Instructions Indication:Nonsmoker Start:10-Nov-2020 Instruction Type:Provider Instructions for Treatment How to Access Health Informa tion Online using Patient Portal and [employer] Apps Indication:Nonsmoker Start:10-Nov-2020 Instruction Type:Patient Education How to access health informa tion online Indication:Vaginal irritation Start:23-Mar-2020 Instruction Type:Patient Education How to access health informa tion online - Detail Indication:Vaginal irritation Start:23-Mar-2020 Instruction Type:Patient Education Patient Instructions Indication:Vaginal irritation Start:23-Mar-2020 Instruction Type:Provider Instructions for Treatment How to access health informa tion online Indication:BMI 24.0-24.9, adult Start:08-Jan-2020 Instruction Type:Patient Education How to access health informa tion online - Detail Indication:BMI 24.0-24.9, adult Start:08-Jan-2020 Instruction Type:Patient Education Patient Instructions Indication:BMI 24.0-24.9, adult Start:08-Jan-2020 Instruction Type:Provider Instructions for Treatment How to access health informa tion online Indication:Nonsmoker Start:23-Sep-2019 Instruction Type:Patient Education How to access health informa tion online - Detail Indication:Nonsmoker Start:23-Sep-2019 Instruction Type:Patient Education Patient Instructions Indication:Nonsmoker Start:23-Sep-2019 Instruction Type:Provider Instructions for Treatment How to access health informa tion online Indication:Vaginal itching Start:09-Sep-2019 Instruction Type:Patient Education How to access health informa tion online - Detail Indication:Vaginal itching Start:09-Sep-2019 Instruction Type:Patient Education Patient Instructions Indication:Vaginal itching Start:09-Sep-2019 Instruction Type:Provider Instructions for Treatment How to access health informa tion online Indication:Postprandial abdominal bloating Start:06-Mar-2019 Instruction Type:Patient Education How to access health informa tion online - Detail Indication:Postprandial abdominal bloating Start:06-Mar-2019 Instruction Type:Patient Education Patient Instructions Indication:Postprandial abdominal bloating Start:06-Mar-2019 Instruction Type:Provider Instructions for Treatment How to access health informa tion online Indication:Nonsmoker Start:04-Jan-2019 Instruction Type:Patient Education How to access health informa tion online - Detail Indication:Nonsmoker Start:04-Jan-2019 Instruction Type:Patient Education Patient Instructions Indication:Nonsmoker Start:04-Jan-2019 Instruction Type:Provider Instructions for Treatment How to access health informa tion online Indication:Nonsmoker Start:12-Sep-2018 Instruction Type:Patient Education How to access health informa tion online - Detail Indication:Nonsmoker Start:12-Sep-2018 Instruction Type:Patient Education Patient Instructions Indication:Nonsmoker Start:12-Sep-2018 Instruction Type:Provider Instructions for Treatment How to access health informa tion online Indication:Acute sinusitis Start:27-Aug-2018 Instruction Type:Patient Education How to access health informa tion online - Detail Indication:Acute sinusitis Start:27-Aug-2018 Instruction Type:Patient Education Patient Instructions Indication:Acute sinusitis Start:27-Aug-2018 Instruction Type:Provider Instructions for Treatment How to access health informa tion online Indication:Nonsmoker Start:15-Dec-2017 Instruction Type:Patient Education How to access health informa tion online - Detail Indication:Nonsmoker Start:15-Dec-2017 Instruction Type:Patient Education Patient Instructions Indication:Nonsmoker Start:15-Dec-2017 Instruction Type:Provider Instructions for Treatment How to access health informa tion online Indication:Nonsmoker Start:23-Oct-2017 Instruction Type:Patient Education How to access health informa tion online - Detail Indication:Nonsmoker Start:23-Oct-2017 Instruction Type:Patient Education Patient Instructions Indication:Nonsmoker Start:23-Oct-2017 Instruction Type:Provider Instructions for Treatment How to access health informa tion online Indication:BMI between 19-24,adult Start:06-Jun-2017 Instruction Type:Patient Education How to access health informa tion online - Detail Indication:BMI between 19-24,adult Start:06-Jun-2017 Instruction Type:Patient Education Patient Instructions Indication:BMI between 19-24,adult Start:06-Jun-2017 Instruction Type:Provider Instructions for Treatment How to access health informa tion online Indication:Other hyperlipidemia Start:25-Jan-2017 Instruction Type:Patient Education How to access health informa tion online - Detail Indication:Other hyperlipidemia Start:25-Jan-2017 Instruction Type:Patient Education Patient Instructions Indication:Other hyperlipidemia Start:25-Jan-2017 Instruction Type:Provider Instructions for Treatment How to access health informa tion online Indication:BMI between 19-24,adult Start:19-Oct-2016 Instruction Type:Patient Education How to access health informa tion online - Detail Indication:BMI between 19-24,adult Start:19-Oct-2016 Instruction Type:Patient Education Patient Instructions Indication:BMI between 19-24,adult Start:19-Oct-2016 Instruction Type:Provider Instructions for Treatment How to access health informa tion online Indication:Postprandial abdominal bloating Start:04-May-2016 Instruction Type:Patient Education How to access health informa tion online - Detail Indication:Postprandial abdominal bloating Start:04-May-2016 Instruction Type:Patient Education Patient Instructions Indication:Postprandial abdominal bloating Start:04-May-2016 Instruction Type:Provider Instructions for Treatment How to access health informa tion online Indication:Other hyperlipidemia Start:02-Feb-2016 Instruction Type:Patient Education How to access health informa tion online - Detail Indication:Other hyperlipidemia Start:02-Feb-2016 Instruction Type:Patient Education Patient Instructions Indication:Other hyperlipidemia Start:02-Feb-2016 Instruction Type:Provider Instructions for Treatment How to access health informa tion online Indication:Weakness Start:01-Sep-2015 Instruction Type:Patient Education How to access health informa tion online - Detail Indication:Weakness Start:01-Sep-2015 Instruction Type:Patient Education Patient Instructions Indication:Weakness Start:01-Sep-2015 Instruction Type:Provider Instructions for Treatment Patient Instructions Indication:Rash (Renamed from Cutaneous eruption) Start:25-Aug-2015 Instruction Type:Provider Instructions for Treatment Patient Instructions Indication:Weakness Start:24-Aug-2015 Instruction Type:Provider Instructions for Treatment How to access health informa tion online Indication:Acute ethmoidal sinusitis, recurrence not specified Start:18-Aug-2015 Instruction Type:Patient Education How to access health informa tion online - Detail Indication:Acute ethmoidal sinusitis, recurrence not specified Start:18-Aug-2015 Instruction Type:Patient Education Patient Instructions Indication:Acute ethmoidal sinusitis, recurrence not specified Start:18-Aug-2015 Instruction Type:Provider Instructions for Treatment How to access health informa tion online Indication:Other hyperlipidemia Start:14-Jul-2015 Instruction Type:Patient Education How to access health informa tion online - Detail Indication:Other hyperlipidemia Start:14-Jul-2015 Instruction Type:Patient Education Patient Instructions Indication:Other hyperlipidemia Start:14-Jul-2015 Instruction Type:Provider Instructions for Treatment Patient Instructions Indication:Otitis media Start:15-Aug-2013 Instruction Type:Provider Instructions for Treatment Patient Instructions Indication:Family history of heart attack Start:05-Jul-2013 Instruction Type:Provider Instructions for Treatment Name Dates Details Patient Instructions Indication:Nonsmoker Start:10-Nov-2020 Instruction Type:Provider Instructions for Treatment How to Access Health Informa tion Online using Patient Portal and [employer] Apps Indication:Nonsmoker Start:10-Nov-2020 Instruction Type:Patient Education How to access health informa tion online Indication:Vaginal irritation Start:23-Mar-2020 Instruction Type:Patient Education How to access health informa tion online - Detail Indication:Vaginal irritation Start:23-Mar-2020 Instruction Type:Patient Education Patient Instructions Indication:Vaginal irritation Start:23-Mar-2020 Instruction Type:Provider Instructions for Treatment How to access health informa tion online Indication:BMI 24.0-24.9, adult Start:08-Jan-2020 Instruction Type:Patient Education How to access health informa tion online - Detail Indication:BMI 24.0-24.9, adult Start:08-Jan-2020 Instruction Type:Patient Education Patient Instructions Indication:BMI 24.0-24.9, adult Start:08-Jan-2020 Instruction Type:Provider Instructions for Treatment How to access health informa tion online Indication:Nonsmoker Start:23-Sep-2019 Instruction Type:Patient Education How to access health informa tion online - Detail Indication:Nonsmoker Start:23-Sep-2019 Instruction Type:Patient Education Patient Instructions Indication:Nonsmoker Start:23-Sep-2019 Instruction Type:Provider Instructions for Treatment How to access health informa tion online Indication:Vaginal itching Start:09-Sep-2019 Instruction Type:Patient Education How to access health informa tion online - Detail Indication:Vaginal itching Start:09-Sep-2019 Instruction Type:Patient Education Patient Instructions Indication:Vaginal itching Start:09-Sep-2019 Instruction Type:Provider Instructions for Treatment How to access health informa tion online Indication:Postprandial abdominal bloating Start:06-Mar-2019 Instruction Type:Patient Education How to access health informa tion online - Detail Indication:Postprandial abdominal bloating Start:06-Mar-2019 Instruction Type:Patient Education Patient Instructions Indication:Postprandial abdominal bloating Start:06-Mar-2019 Instruction Type:Provider Instructions for Treatment How to access health informa tion online Indication:Nonsmoker Start:04-Jan-2019 Instruction Type:Patient Education How to access health informa tion online - Detail Indication:Nonsmoker Start:04-Jan-2019 Instruction Type:Patient Education Patient Instructions Indication:Nonsmoker Start:04-Jan-2019 Instruction Type:Provider Instructions for Treatment How to access health informa tion online Indication:Nonsmoker Start:12-Sep-2018 Instruction Type:Patient Education How to access health informa tion online - Detail Indication:Nonsmoker Start:12-Sep-2018 Instruction Type:Patient Education Patient Instructions Indication:Nonsmoker Start:12-Sep-2018 Instruction Type:Provider Instructions for Treatment How to access health informa tion online Indication:Acute sinusitis Start:27-Aug-2018 Instruction Type:Patient Education How to access health informa tion online - Detail Indication:Acute sinusitis Start:27-Aug-2018 Instruction Type:Patient Education Patient Instructions Indication:Acute sinusitis Start:27-Aug-2018 Instruction Type:Provider Instructions for Treatment How to access health informa tion online Indication:Nonsmoker Start:15-Dec-2017 Instruction Type:Patient Education How to access health informa tion online - Detail Indication:Nonsmoker Start:15-Dec-2017 Instruction Type:Patient Education Patient Instructions Indication:Nonsmoker Start:15-Dec-2017 Instruction Type:Provider Instructions for Treatment How to access health informa tion online Indication:Nonsmoker Start:23-Oct-2017 Instruction Type:Patient Education How to access health informa tion online - Detail Indication:Nonsmoker Start:23-Oct-2017 Instruction Type:Patient Education Patient Instructions Indication:Nonsmoker Start:23-Oct-2017 Instruction Type:Provider Instructions for Treatment How to access health informa tion online Indication:BMI between 19-24,adult Start:06-Jun-2017 Instruction Type:Patient Education How to access health informa tion online - Detail Indication:BMI between 19-24,adult Start:06-Jun-2017 Instruction Type:Patient Education Patient Instructions Indication:BMI between 19-24,adult Start:06-Jun-2017 Instruction Type:Provider Instructions for Treatment How to access health informa tion online Indication:Other hyperlipidemia Start:25-Jan-2017 Instruction Type:Patient Education How to access health informa tion online - Detail Indication:Other hyperlipidemia Start:25-Jan-2017 Instruction Type:Patient Education Patient Instructions Indication:Other hyperlipidemia Start:25-Jan-2017 Instruction Type:Provider Instructions for Treatment How to access health informa tion online Indication:BMI between 19-24,adult Start:19-Oct-2016 Instruction Type:Patient Education How to access health informa tion online - Detail Indication:BMI between 19-24,adult Start:19-Oct-2016 Instruction Type:Patient Education Patient Instructions Indication:BMI between 19-24,adult Start:19-Oct-2016 Instruction Type:Provider Instructions for Treatment How to access health informa tion online Indication:Postprandial abdominal bloating Start:04-May-2016 Instruction Type:Patient Education How to access health informa tion online - Detail Indication:Postprandial abdominal bloating Start:04-May-2016 Instruction Type:Patient Education Patient Instructions Indication:Postprandial abdominal bloating Start:04-May-2016 Instruction Type:Provider Instructions for Treatment How to access health informa tion online Indication:Other hyperlipidemia Start:02-Feb-2016 Instruction Type:Patient Education How to access health informa tion online - Detail Indication:Other hyperlipidemia Start:02-Feb-2016 Instruction Type:Patient Education Patient Instructions Indication:Other hyperlipidemia Start:02-Feb-2016 Instruction Type:Provider Instructions for Treatment How to access health informa tion online Indication:Weakness Start:01-Sep-2015 Instruction Type:Patient Education How to access health informa tion online - Detail Indication:Weakness Start:01-Sep-2015 Instruction Type:Patient Education Patient Instructions Indication:Weakness Start:01-Sep-2015 Instruction Type:Provider Instructions for Treatment Patient Instructions Indication:Rash (Renamed from Cutaneous eruption) Start:25-Aug-2015 Instruction Type:Provider Instructions for Treatment Patient Instructions Indication:Weakness Start:24-Aug-2015 Instruction Type:Provider Instructions for Treatment How to access health informa tion online Indication:Acute ethmoidal sinusitis, recurrence not specified Start:18-Aug-2015 Instruction Type:Patient Education How to access health informa tion online - Detail Indication:Acute ethmoidal sinusitis, recurrence not specified Start:18-Aug-2015 Instruction Type:Patient Education Patient Instructions Indication:Acute ethmoidal sinusitis, recurrence not specified Start:18-Aug-2015 Instruction Type:Provider Instructions for Treatment How to access health informa tion online Indication:Other hyperlipidemia Start:14-Jul-2015 Instruction Type:Patient Education How to access health informa tion online - Detail Indication:Other hyperlipidemia Start:14-Jul-2015 Instruction Type:Patient Education Patient Instructions Indication:Other hyperlipidemia Start:14-Jul-2015 Instruction Type:Provider Instructions for Treatment Patient Instructions Indication:Otitis media Start:15-Aug-2013 Instruction Type:Provider Instructions for Treatment Patient Instructions Indication:Family history of heart attack Start:05-Jul-2013 Instruction Type:Provider Instructions for Treatment Name Dates Details How to access health informa tion online Indication:Vaginal itching Start:09-Sep-2019 Instruction Type:Patient Education How to access health informa tion online - Detail Indication:Vaginal itching Start:09-Sep-2019 Instruction Type:Patient Education Patient Instructions Indication:Vaginal itching Start:09-Sep-2019 Instruction Type:Provider Instructions for Treatment How to access health informa tion online Indication:Postprandial abdominal bloating Start:06-Mar-2019 Instruction Type:Patient Education How to access health informa tion online - Detail Indication:Postprandial abdominal bloating Start:06-Mar-2019 Instruction Type:Patient Education Patient Instructions Indication:Postprandial abdominal bloating Start:06-Mar-2019 Instruction Type:Provider Instructions for Treatment How to access health informa tion online Indication:Nonsmoker Start:04-Jan-2019 Instruction Type:Patient Education How to access health informa tion online - Detail Indication:Nonsmoker Start:04-Jan-2019 Instruction Type:Patient Education Patient Instructions Indication:Nonsmoker Start:04-Jan-2019 Instruction Type:Provider Instructions for Treatment How to access health informa tion online Indication:Nonsmoker Start:12-Sep-2018 Instruction Type:Patient Education How to access health informa tion online - Detail Indication:Nonsmoker Start:12-Sep-2018 Instruction Type:Patient Education Patient Instructions Indication:Nonsmoker Start:12-Sep-2018 Instruction Type:Provider Instructions for Treatment How to access health informa tion online Indication:Acute sinusitis Start:27-Aug-2018 Instruction Type:Patient Education How to access health informa tion online - Detail Indication:Acute sinusitis Start:27-Aug-2018 Instruction Type:Patient Education Patient Instructions Indication:Acute sinusitis Start:27-Aug-2018 Instruction Type:Provider Instructions for Treatment How to access health informa tion online Indication:Nonsmoker Start:15-Dec-2017 Instruction Type:Patient Education How to access health informa tion online - Detail Indication:Nonsmoker Start:15-Dec-2017 Instruction Type:Patient Education Patient Instructions Indication:Nonsmoker Start:15-Dec-2017 Instruction Type:Provider Instructions for Treatment How to access health informa tion online Indication:Nonsmoker Start:23-Oct-2017 Instruction Type:Patient Education How to access health informa tion online - Detail Indication:Nonsmoker Start:23-Oct-2017 Instruction Type:Patient Education Patient Instructions Indication:Nonsmoker Start:23-Oct-2017 Instruction Type:Provider Instructions for Treatment How to access health informa tion online Indication:BMI between 19-24,adult Start:06-Jun-2017 Instruction Type:Patient Education How to access health informa tion online - Detail Indication:BMI between 19-24,adult Start:06-Jun-2017 Instruction Type:Patient Education Patient Instructions Indication:BMI between 19-24,adult Start:06-Jun-2017 Instruction Type:Provider Instructions for Treatment How to access health informa tion online Indication:Other hyperlipidemia Start:25-Jan-2017 Instruction Type:Patient Education How to access health informa tion online - Detail Indication:Other hyperlipidemia Start:25-Jan-2017 Instruction Type:Patient Education Patient Instructions Indication:Other hyperlipidemia Start:25-Jan-2017 Instruction Type:Provider Instructions for Treatment How to access health informa tion online Indication:BMI between 19-24,adult Start:19-Oct-2016 Instruction Type:Patient Education How to access health informa tion online - Detail Indication:BMI between 19-24,adult Start:19-Oct-2016 Instruction Type:Patient Education Patient Instructions Indication:BMI between 19-24,adult Start:19-Oct-2016 Instruction Type:Provider Instructions for Treatment How to access health informa tion online Indication:Postprandial abdominal bloating Start:04-May-2016 Instruction Type:Patient Education How to access health informa tion online - Detail Indication:Postprandial abdominal bloating Start:04-May-2016 Instruction Type:Patient Education Patient Instructions Indication:Postprandial abdominal bloating Start:04-May-2016 Instruction Type:Provider Instructions for Treatment How to access health informa tion online Indication:Other hyperlipidemia Start:02-Feb-2016 Instruction Type:Patient Education How to access health informa tion online - Detail Indication:Other hyperlipidemia Start:02-Feb-2016 Instruction Type:Patient Education Patient Instructions Indication:Other hyperlipidemia Start:02-Feb-2016 Instruction Type:Provider Instructions for Treatment How to access health informa tion online Indication:Weakness Start:01-Sep-2015 Instruction Type:Patient Education How to access health informa tion online - Detail Indication:Weakness Start:01-Sep-2015 Instruction Type:Patient Education Patient Instructions Indication:Weakness Start:01-Sep-2015 Instruction Type:Provider Instructions for Treatment Patient Instructions Indication:Rash (Renamed from Cutaneous eruption) Start:25-Aug-2015 Instruction Type:Provider Instructions for Treatment Patient Instructions Indication:Weakness Start:24-Aug-2015 Instruction Type:Provider Instructions for Treatment How to access health informa tion online Indication:Acute ethmoidal sinusitis, recurrence not specified Start:18-Aug-2015 Instruction Type:Patient Education How to access health informa tion online - Detail Indication:Acute ethmoidal sinusitis, recurrence not specified Start:18-Aug-2015 Instruction Type:Patient Education Patient Instructions Indication:Acute ethmoidal sinusitis, recurrence not specified Start:18-Aug-2015 Instruction Type:Provider Instructions for Treatment How to access health informa tion online Indication:Other hyperlipidemia Start:14-Jul-2015 Instruction Type:Patient Education How to access health informa tion online - Detail Indication:Other hyperlipidemia Start:14-Jul-2015 Instruction Type:Patient Education Patient Instructions Indication:Other hyperlipidemia Start:14-Jul-2015 Instruction Type:Provider Instructions for Treatment Patient Instructions Indication:Otitis media Start:15-Aug-2013 Instruction Type:Provider Instructions for Treatment Patient Instructions Indication:Family history of heart attack Start:05-Jul-2013 Instruction Type:Provider Instructions for Treatment Name Dates Details Patient Instructions Indication:Nonsmoker Start:10-Nov-2020 Instruction Type:Provider Instructions for Treatment How to Access Health Informa tion Online using Patient Portal and [employer] Apps Indication:Nonsmoker Start:10-Nov-2020 Instruction Type:Patient Education How to access health informa tion online Indication:Vaginal irritation Start:23-Mar-2020 Instruction Type:Patient Education How to access health informa tion online - Detail Indication:Vaginal irritation Start:23-Mar-2020 Instruction Type:Patient Education Patient Instructions Indication:Vaginal irritation Start:23-Mar-2020 Instruction Type:Provider Instructions for Treatment How to access health informa tion online Indication:BMI 24.0-24.9, adult Start:08-Jan-2020 Instruction Type:Patient Education How to access health informa tion online - Detail Indication:BMI 24.0-24.9, adult Start:08-Jan-2020 Instruction Type:Patient Education Patient Instructions Indication:BMI 24.0-24.9, adult Start:08-Jan-2020 Instruction Type:Provider Instructions for Treatment How to access health informa tion online Indication:Nonsmoker Start:23-Sep-2019 Instruction Type:Patient Education How to access health informa tion online - Detail Indication:Nonsmoker Start:23-Sep-2019 Instruction Type:Patient Education Patient Instructions Indication:Nonsmoker Start:23-Sep-2019 Instruction Type:Provider Instructions for Treatment How to access health informa tion online Indication:Vaginal itching Start:09-Sep-2019 Instruction Type:Patient Education How to access health informa tion online - Detail Indication:Vaginal itching Start:09-Sep-2019 Instruction Type:Patient Education Patient Instructions Indication:Vaginal itching Start:09-Sep-2019 Instruction Type:Provider Instructions for Treatment How to access health informa tion online Indication:Postprandial abdominal bloating Start:06-Mar-2019 Instruction Type:Patient Education How to access health informa tion online - Detail Indication:Postprandial abdominal bloating Start:06-Mar-2019 Instruction Type:Patient Education Patient Instructions Indication:Postprandial abdominal bloating Start:06-Mar-2019 Instruction Type:Provider Instructions for Treatment How to access health informa tion online Indication:Nonsmoker Start:04-Jan-2019 Instruction Type:Patient Education How to access health informa tion online - Detail Indication:Nonsmoker Start:04-Jan-2019 Instruction Type:Patient Education Patient Instructions Indication:Nonsmoker Start:04-Jan-2019 Instruction Type:Provider Instructions for Treatment How to access health informa tion online Indication:Nonsmoker Start:12-Sep-2018 Instruction Type:Patient Education How to access health informa tion online - Detail Indication:Nonsmoker Start:12-Sep-2018 Instruction Type:Patient Education Patient Instructions Indication:Nonsmoker Start:12-Sep-2018 Instruction Type:Provider Instructions for Treatment How to access health informa tion online Indication:Acute sinusitis Start:27-Aug-2018 Instruction Type:Patient Education How to access health informa tion online - Detail Indication:Acute sinusitis Start:27-Aug-2018 Instruction Type:Patient Education Patient Instructions Indication:Acute sinusitis Start:27-Aug-2018 Instruction Type:Provider Instructions for Treatment How to access health informa tion online Indication:Nonsmoker Start:15-Dec-2017 Instruction Type:Patient Education How to access health informa tion online - Detail Indication:Nonsmoker Start:15-Dec-2017 Instruction Type:Patient Education Patient Instructions Indication:Nonsmoker Start:15-Dec-2017 Instruction Type:Provider Instructions for Treatment How to access health informa tion online Indication:Nonsmoker Start:23-Oct-2017 Instruction Type:Patient Education How to access health informa tion online - Detail Indication:Nonsmoker Start:23-Oct-2017 Instruction Type:Patient Education Patient Instructions Indication:Nonsmoker Start:23-Oct-2017 Instruction Type:Provider Instructions for Treatment How to access health informa tion online Indication:BMI between 19-24,adult Start:06-Jun-2017 Instruction Type:Patient Education How to access health informa tion online - Detail Indication:BMI between 19-24,adult Start:06-Jun-2017 Instruction Type:Patient Education Patient Instructions Indication:BMI between 19-24,adult Start:06-Jun-2017 Instruction Type:Provider Instructions for Treatment How to access health informa tion online Indication:Other hyperlipidemia Start:25-Jan-2017 Instruction Type:Patient Education How to access health informa tion online - Detail Indication:Other hyperlipidemia Start:25-Jan-2017 Instruction Type:Patient Education Patient Instructions Indication:Other hyperlipidemia Start:25-Jan-2017 Instruction Type:Provider Instructions for Treatment How to access health informa tion online Indication:BMI between 19-24,adult Start:19-Oct-2016 Instruction Type:Patient Education How to access health informa tion online - Detail Indication:BMI between 19-24,adult Start:19-Oct-2016 Instruction Type:Patient Education Patient Instructions Indication:BMI between 19-24,adult Start:19-Oct-2016 Instruction Type:Provider Instructions for Treatment How to access health informa tion online Indication:Postprandial abdominal bloating Start:04-May-2016 Instruction Type:Patient Education How to access health informa tion online - Detail Indication:Postprandial abdominal bloating Start:04-May-2016 Instruction Type:Patient Education Patient Instructions Indication:Postprandial abdominal bloating Start:04-May-2016 Instruction Type:Provider Instructions for Treatment How to access health informa tion online Indication:Other hyperlipidemia Start:02-Feb-2016 Instruction Type:Patient Education How to access health informa tion online - Detail Indication:Other hyperlipidemia Start:02-Feb-2016 Instruction Type:Patient Education Patient Instructions Indication:Other hyperlipidemia Start:02-Feb-2016 Instruction Type:Provider Instructions for Treatment How to access health informa tion online Indication:Weakness Start:01-Sep-2015 Instruction Type:Patient Education How to access health informa tion online - Detail Indication:Weakness Start:01-Sep-2015 Instruction Type:Patient Education Patient Instructions Indication:Weakness Start:01-Sep-2015 Instruction Type:Provider Instructions for Treatment Patient Instructions Indication:Rash (Renamed from Cutaneous eruption) Start:25-Aug-2015 Instruction Type:Provider Instructions for Treatment Patient Instructions Indication:Weakness Start:24-Aug-2015 Instruction Type:Provider Instructions for Treatment How to access health informa tion online Indication:Acute ethmoidal sinusitis, recurrence not specified Start:18-Aug-2015 Instruction Type:Patient Education How to access health informa tion online - Detail Indication:Acute ethmoidal sinusitis, recurrence not specified Start:18-Aug-2015 Instruction Type:Patient Education Patient Instructions Indication:Acute ethmoidal sinusitis, recurrence not specified Start:18-Aug-2015 Instruction Type:Provider Instructions for Treatment How to access health informa tion online Indication:Other hyperlipidemia Start:14-Jul-2015 Instruction Type:Patient Education How to access health informa tion online - Detail Indication:Other hyperlipidemia Start:14-Jul-2015 Instruction Type:Patient Education Patient Instructions Indication:Other hyperlipidemia Start:14-Jul-2015 Instruction Type:Provider Instructions for Treatment Patient Instructions Indication:Otitis media Start:15-Aug-2013 Instruction Type:Provider Instructions for Treatment Patient Instructions Indication:Family history of heart attack Start:05-Jul-2013 Instruction Type:Provider Instructions for Treatment Name Dates Details How to access health informa tion online Indication:Postprandial abdominal bloating Start:06-Mar-2019 Instruction Type:Patient Education How to access health informa tion online - Detail Indication:Postprandial abdominal bloating Start:06-Mar-2019 Instruction Type:Patient Education Patient Instructions Indication:Postprandial abdominal bloating Start:06-Mar-2019 Instruction Type:Provider Instructions for Treatment How to access health informa tion online Indication:Nonsmoker Start:04-Jan-2019 Instruction Type:Patient Education How to access health informa tion online - Detail Indication:Nonsmoker Start:04-Jan-2019 Instruction Type:Patient Education Patient Instructions Indication:Nonsmoker Start:04-Jan-2019 Instruction Type:Provider Instructions for Treatment How to access health informa tion online Indication:Nonsmoker Start:12-Sep-2018 Instruction Type:Patient Education How to access health informa tion online - Detail Indication:Nonsmoker Start:12-Sep-2018 Instruction Type:Patient Education Patient Instructions Indication:Nonsmoker Start:12-Sep-2018 Instruction Type:Provider Instructions for Treatment How to access health informa tion online Indication:Acute sinusitis Start:27-Aug-2018 Instruction Type:Patient Education How to access health informa tion online - Detail Indication:Acute sinusitis Start:27-Aug-2018 Instruction Type:Patient Education Patient Instructions Indication:Acute sinusitis Start:27-Aug-2018 Instruction Type:Provider Instructions for Treatment How to access health informa tion online Indication:Nonsmoker Start:15-Dec-2017 Instruction Type:Patient Education How to access health informa tion online - Detail Indication:Nonsmoker Start:15-Dec-2017 Instruction Type:Patient Education Patient Instructions Indication:Nonsmoker Start:15-Dec-2017 Instruction Type:Provider Instructions for Treatment How to access health informa tion online Indication:Nonsmoker Start:23-Oct-2017 Instruction Type:Patient Education How to access health informa tion online - Detail Indication:Nonsmoker Start:23-Oct-2017 Instruction Type:Patient Education Patient Instructions Indication:Nonsmoker Start:23-Oct-2017 Instruction Type:Provider Instructions for Treatment How to access health informa tion online Indication:BMI between 19-24,adult Start:06-Jun-2017 Instruction Type:Patient Education How to access health informa tion online - Detail Indication:BMI between 19-24,adult Start:06-Jun-2017 Instruction Type:Patient Education Patient Instructions Indication:BMI between 19-24,adult Start:06-Jun-2017 Instruction Type:Provider Instructions for Treatment How to access health informa tion online Indication:Other hyperlipidemia Start:25-Jan-2017 Instruction Type:Patient Education How to access health informa tion online - Detail Indication:Other hyperlipidemia Start:25-Jan-2017 Instruction Type:Patient Education Patient Instructions Indication:Other hyperlipidemia Start:25-Jan-2017 Instruction Type:Provider Instructions for Treatment How to access health informa tion online Indication:BMI between 19-24,adult Start:19-Oct-2016 Instruction Type:Patient Education How to access health informa tion online - Detail Indication:BMI between 19-24,adult Start:19-Oct-2016 Instruction Type:Patient Education Patient Instructions Indication:BMI between 19-24,adult Start:19-Oct-2016 Instruction Type:Provider Instructions for Treatment How to access health informa tion online Indication:Postprandial abdominal bloating Start:04-May-2016 Instruction Type:Patient Education How to access health informa tion online - Detail Indication:Postprandial abdominal bloating Start:04-May-2016 Instruction Type:Patient Education Patient Instructions Indication:Postprandial abdominal bloating Start:04-May-2016 Instruction Type:Provider Instructions for Treatment How to access health informa tion online Indication:Other hyperlipidemia Start:02-Feb-2016 Instruction Type:Patient Education How to access health informa tion online - Detail Indication:Other hyperlipidemia Start:02-Feb-2016 Instruction Type:Patient Education Patient Instructions Indication:Other hyperlipidemia Start:02-Feb-2016 Instruction Type:Provider Instructions for Treatment How to access health informa tion online Indication:Weakness Start:01-Sep-2015 Instruction Type:Patient Education How to access health informa tion online - Detail Indication:Weakness Start:01-Sep-2015 Instruction Type:Patient Education Patient Instructions Indication:Weakness Start:01-Sep-2015 Instruction Type:Provider Instructions for Treatment Patient Instructions Indication:Rash (Renamed from Cutaneous eruption) Start:25-Aug-2015 Instruction Type:Provider Instructions for Treatment Patient Instructions Indication:Weakness Start:24-Aug-2015 Instruction Type:Provider Instructions for Treatment How to access health informa tion online Indication:Acute ethmoidal sinusitis, recurrence not specified Start:18-Aug-2015 Instruction Type:Patient Education How to access health informa tion online - Detail Indication:Acute ethmoidal sinusitis, recurrence not specified Start:18-Aug-2015 Instruction Type:Patient Education Patient Instructions Indication:Acute ethmoidal sinusitis, recurrence not specified Start:18-Aug-2015 Instruction Type:Provider Instructions for Treatment How to access health informa tion online Indication:Other hyperlipidemia Start:14-Jul-2015 Instruction Type:Patient Education How to access health informa tion online - Detail Indication:Other hyperlipidemia Start:14-Jul-2015 Instruction Type:Patient Education Patient Instructions Indication:Other hyperlipidemia Start:14-Jul-2015 Instruction Type:Provider Instructions for Treatment Patient Instructions Indication:Otitis media Start:15-Aug-2013 Instruction Type:Provider Instructions for Treatment Patient Instructions Indication:Family history of heart attack Start:05-Jul-2013 Instruction Type:Provider Instructions for Treatment Name Dates Details How to access health informa tion online Indication:Vaginal itching Start:09-Sep-2019 Instruction Type:Patient Education How to access health informa tion online - Detail Indication:Vaginal itching Start:09-Sep-2019 Instruction Type:Patient Education Patient Instructions Indication:Vaginal itching Start:09-Sep-2019 Instruction Type:Provider Instructions for Treatment How to access health informa tion online Indication:Postprandial abdominal bloating Start:06-Mar-2019 Instruction Type:Patient Education How to access health informa tion online - Detail Indication:Postprandial abdominal bloating Start:06-Mar-2019 Instruction Type:Patient Education Patient Instructions Indication:Postprandial abdominal bloating Start:06-Mar-2019 Instruction Type:Provider Instructions for Treatment How to access health informa tion online Indication:Nonsmoker Start:04-Jan-2019 Instruction Type:Patient Education How to access health informa tion online - Detail Indication:Nonsmoker Start:04-Jan-2019 Instruction Type:Patient Education Patient Instructions Indication:Nonsmoker Start:04-Jan-2019 Instruction Type:Provider Instructions for Treatment How to access health informa tion online Indication:Nonsmoker Start:12-Sep-2018 Instruction Type:Patient Education How to access health informa tion online - Detail Indication:Nonsmoker Start:12-Sep-2018 Instruction Type:Patient Education Patient Instructions Indication:Nonsmoker Start:12-Sep-2018 Instruction Type:Provider Instructions for Treatment How to access health informa tion online Indication:Acute sinusitis Start:27-Aug-2018 Instruction Type:Patient Education How to access health informa tion online - Detail Indication:Acute sinusitis Start:27-Aug-2018 Instruction Type:Patient Education Patient Instructions Indication:Acute sinusitis Start:27-Aug-2018 Instruction Type:Provider Instructions for Treatment How to access health informa tion online Indication:Nonsmoker Start:15-Dec-2017 Instruction Type:Patient Education How to access health informa tion online - Detail Indication:Nonsmoker Start:15-Dec-2017 Instruction Type:Patient Education Patient Instructions Indication:Nonsmoker Start:15-Dec-2017 Instruction Type:Provider Instructions for Treatment How to access health informa tion online Indication:Nonsmoker Start:23-Oct-2017 Instruction Type:Patient Education How to access health informa tion online - Detail Indication:Nonsmoker Start:23-Oct-2017 Instruction Type:Patient Education Patient Instructions Indication:Nonsmoker Start:23-Oct-2017 Instruction Type:Provider Instructions for Treatment How to access health informa tion online Indication:BMI between 19-24,adult Start:06-Jun-2017 Instruction Type:Patient Education How to access health informa tion online - Detail Indication:BMI between 19-24,adult Start:06-Jun-2017 Instruction Type:Patient Education Patient Instructions Indication:BMI between 19-24,adult Start:06-Jun-2017 Instruction Type:Provider Instructions for Treatment How to access health informa tion online Indication:Other hyperlipidemia Start:25-Jan-2017 Instruction Type:Patient Education How to access health informa tion online - Detail Indication:Other hyperlipidemia Start:25-Jan-2017 Instruction Type:Patient Education Patient Instructions Indication:Other hyperlipidemia Start:25-Jan-2017 Instruction Type:Provider Instructions for Treatment How to access health informa tion online Indication:BMI between 19-24,adult Start:19-Oct-2016 Instruction Type:Patient Education How to access health informa tion online - Detail Indication:BMI between 19-24,adult Start:19-Oct-2016 Instruction Type:Patient Education Patient Instructions Indication:BMI between 19-24,adult Start:19-Oct-2016 Instruction Type:Provider Instructions for Treatment How to access health informa tion online Indication:Postprandial abdominal bloating Start:04-May-2016 Instruction Type:Patient Education How to access health informa tion online - Detail Indication:Postprandial abdominal bloating Start:04-May-2016 Instruction Type:Patient Education Patient Instructions Indication:Postprandial abdominal bloating Start:04-May-2016 Instruction Type:Provider Instructions for Treatment How to access health informa tion online Indication:Other hyperlipidemia Start:02-Feb-2016 Instruction Type:Patient Education How to access health informa tion online - Detail Indication:Other hyperlipidemia Start:02-Feb-2016 Instruction Type:Patient Education Patient Instructions Indication:Other hyperlipidemia Start:02-Feb-2016 Instruction Type:Provider Instructions for Treatment How to access health informa tion online Indication:Weakness Start:01-Sep-2015 Instruction Type:Patient Education How to access health informa tion online - Detail Indication:Weakness Start:01-Sep-2015 Instruction Type:Patient Education Patient Instructions Indication:Weakness Start:01-Sep-2015 Instruction Type:Provider Instructions for Treatment Patient Instructions Indication:Rash (Renamed from Cutaneous eruption) Start:25-Aug-2015 Instruction Type:Provider Instructions for Treatment Patient Instructions Indication:Weakness Start:24-Aug-2015 Instruction Type:Provider Instructions for Treatment How to access health informa tion online Indication:Acute ethmoidal sinusitis, recurrence not specified Start:18-Aug-2015 Instruction Type:Patient Education How to access health informa tion online - Detail Indication:Acute ethmoidal sinusitis, recurrence not specified Start:18-Aug-2015 Instruction Type:Patient Education Patient Instructions Indication:Acute ethmoidal sinusitis, recurrence not specified Start:18-Aug-2015 Instruction Type:Provider Instructions for Treatment How to access health informa tion online Indication:Other hyperlipidemia Start:14-Jul-2015 Instruction Type:Patient Education How to access health informa tion online - Detail Indication:Other hyperlipidemia Start:14-Jul-2015 Instruction Type:Patient Education Patient Instructions Indication:Other hyperlipidemia Start:14-Jul-2015 Instruction Type:Provider Instructions for Treatment Patient Instructions Indication:Otitis media Start:15-Aug-2013 Instruction Type:Provider Instructions for Treatment Patient Instructions Indication:Family history of heart attack Start:05-Jul-2013 Instruction Type:Provider Instructions for Treatment Name Dates Details Nonsmoker : How to access he alth information online Indication:Nonsmoker Nonsmoker : How to access he alth information online - Detail Indication:Nonsmoker Nonsmoker : Patient Instruct ions Indication:Nonsmoker Acute sinusitis : How to acc ess health information online Indication:Acute sinusitis Acute sinusitis : How to acc ess health information online - Detail Indication:Acute sinusitis Acute sinusitis : Patient In structions Indication:Acute sinusitis BMI between 19-24,adult : Ho w to access health information online Indication:BMI between 19-24,adult BMI between 19-24,adult : Ho w to access health information online - Detail Indication:BMI between 19-24,adult BMI between 19-24,adult : Pa katient Instructions Indication:BMI between 19-24,adult Other hyperlipidemia : How t o access health information online Indication:Other hyperlipidemia Other hyperlipidemia : How t o access health information online - Detail Indication:Other hyperlipidemia Other hyperlipidemia : Patie nt Instructions Indication:Other hyperlipidemia Postprandial abdominal bloat ing : How to access health information online Indication:Postprandial abdominal bloating Postprandial abdominal bloat ing : How to access health information online - Detail Indication:Postprandial abdominal bloating Postprandial abdominal bloat ing : Patient Instructions Indication:Postprandial abdominal bloating Weakness : How to access hea lth information online Indication:Weakness Weakness : How to access hea lth information online - Detail Indication:Weakness Weakness : Patient Instructi ons Indication:Weakness Rash (Renamed from Cutaneous eruption) : Patient Instructions Indication:Rash (Renamed from Cutaneous eruption) Acute ethmoidal sinusitis, r ecurrence not specified : How to access health information online Indication:Acute ethmoidal sinusitis, recurrence not specified Acute ethmoidal sinusitis, r ecurrence not specified : How to access health information online - Detail Indication:Acute ethmoidal sinusitis, recurrence not specified Acute ethmoidal sinusitis, r ecurrence not specified : Patient Instructions Indication:Acute ethmoidal sinusitis, recurrence not specified Otitis media : Patient Instr uctions Indication:Otitis media Family history of heart jen ck : Patient Instructions Indication:Family history of heart attack Summary Purpose Advance Directives No Advanced Directives Records FoundNo Advanced Directives Records Found Additional Source Comments INFORMATION SOURCE (unrecogn ized section and content) DATE CREATED AUTHOR AUTHOR'S BELEM ROJASION 05/19/2023 [facility] FOR RECORDS PERTAINING TO PATIENTS WHO ARE OR HAVE BEEN ENROLLED IN A CHEMICAL DEPENDENCY/SUBSTANCEABUSE PROGRAM, SOME INFORMATION MAY BE OMITTED. This clinical summary was aggregated from multiple sources. Caution should be exercised in using it in the provision of clinical care. This summary normalizes information from multiple sources, and as a consequence, information in this document may materially change the coding, format and clinical context of patient data. In addition, data may be omitted in some cases. CLINICAL DECISIONS SHOULD BE BASED ON THE PRIMARY CLINICAL RECORDS. [facility] [employer] [facility]. provides no warranty or guarantee of the accuracy or completeness of information in this document.
[2024-01-04] MEDS: Cefazolin 2 GM in 0.9% Normal Saline (100mL Bag) 100 ML IV (07:36)
[2024-01-04] MEDS: Bupiv/Epi 0.25% 30 ML Vial (07:51)
[2024-01-04] MEDS: Epinephrine (1 mg/ml) 1 MG/ML VIAL (07:51)
--- NOTE | 2024-01-04 09:07 | OP.PCM_ITS ---
Report of Operation Date of Procedure: 01/04/24 Description of Surgical Findings:: Preoperative diagnosis: 1. Right knee medial meniscal root tear 2. Right knee medial femoral condyle chondromalacia Postoperative diagnosis: 1. Right knee medial meniscal root tear 2. Right knee medial femoral condyle chondromalacia Procedure: Right knee arthroscopic medial meniscal root repair with medial femoral condyle chondroplasty Surgeon: Ricardo Hinojosa DO Poultry Pinner: Annmarie Rascon PA-C Anesthesia: General LMA with postoperative femoral nerve block Anesthesiologist: Carmelo Bourgeois MD Estimated blood loss: 15 cc IV fluids: 1 L crystalloid Complications: None apparent Specimen: None Implants: Arthrex 4.75 mm bio composite swivel lock anchor Packing/drains: None Indications: This is an active 43-year-old female seen in the outpatient setting for right knee pain. She failed nonoperative management form of activity modification, exercises, and ikmr-skh-[id number] analgesics. MRI was obtained and demonstrated a tear of the medial meniscal root. There is also chondromalacia of the medial femoral condyle. She had no significant arthritic changes on x- ray. I recommend surgical intervention in the form of right knee arthroscopic medial meniscal root repair with chondroplasty. I recommended proceeding with surgery in a timely manner to avoid rapid progression of osteoarthritis due to the unstable nature of radial tears at the meniscal root. I reviewed the risks, benefits, and alternatives to the procedure with the patient. Risk included but were not limited to bleeding, infection, loss of life or limb, need for additional surgery, persistent pain, nonhealing meniscus or skin, persistent stiffness, progression of osteoarthritis, neurovascular injury, DVT or PE. Patient expressed understanding of these risks and wished proceed with surgery. Description of procedure: Patient was identified in preoperative holding area by name, medical record number, and date of . The operative extremities marked. All questions were answered patient satisfaction. At time of her procedure, patient brought the operative suite positioned supine a standard operating table. General anesthesia was induced and LMA was placed. All bony prominences were well- padded. A well-padded pneumatic tourniquet was applied to the right upper thigh. Right lower extremity was placed in a circumferential arthroscopic leg ruffin. A well-leg ruffin was placed in the patient's left thigh. The foot of the bed was dropped 90 degrees. We prepped and draped the right lower extremity in normal, sterile orthopedic fashion. We performed a timeout confirming side, site, and operation be performed. No concerns were voiced elected proceed with surgery. 2 g Ancef was administered prior to turmeric inflation by anesthesia staff IV. I first angulated the right lower extremity with an Esmarch bandage. Tourniquet inflated to 250 mmHg which remained up for 33 minutes. Esmarch was removed. Standard anterolateral portal was established with 11 blade scalpel. Blunt tipped trocar was used to enter the knee joint. Knee was inflated with normal saline with epinephrine. Arthroscope was introduced. Patellofemoral joint was unremarkable. Medial lateral gutters were unremarkable. Medial compartment was entered with valgus stress. Anterior medial portal was established with 11 blade scalpel. Fat pad was debrided. The meniscal root was then probed and medial meniscus demonstrated full-thickness tearing of the root insertion with a radial orientation. I debrided the footprint of the meniscus with the arthroscopic shaver lightly decorticating with a rasp as well. Grade 2?3 chondromalacia was noted on the surface area of approximately 2 x 2 cm in the medial femoral condyle at the weightbearing portion. Unstable chondral margins were debrided to a stable rim with the radial resector. I then turned my attention in the intercondylar notch. ACL and PCL were unremarkable. Lateral compartment was entered with a [id number] stress and was pristine. I returned my attention to the medial compartment. 2 luggage tag type sutures were placed in the posterior horn medial meniscus with a scorpion suture passer utilizing fiber link suture. The sutures were tightened and then retrieved out a percutaneous far medial portal for suture management. I then utilized the vendor supplied meniscal root tunnel guide. Skin was marked for planned trajectory and sharply incised along the proximal medial tibial crest. I bluntly dissected down to the level of bone. I then drilled bicortically to the [place] footprint of the medial meniscal root. Flip cutter was identified and flipped in the joint and retrograde drilled approximately 5 mm. Flip cutter was then removed from the wound. A passing suture was placed through the tibial tunnel and retrieved out the anterior medial portal as well as the repair sutures. Repair sutures were shuttled through the tibial tunnel and tension. There is excellent reapproximation of the medial meniscal root to its insertion. Sutures were then passed through the eyelet of a swivel lock anchor. I used a drill and tap in standard fashion to prepare the bone for the swivel lock suture anchor. Sutures were tensioned to appropriate tension and the swivel lock K wire was placed. Excellent cortical purchase was achieved. The meniscus was probed and appeared stable. Sutures were then cut flush with the anchor. Wound was copiously irrigated with normal saline solution. Portal sites were closed in meypfb-[id number]-vqism fashion with 4-0 nylon suture. Tibial tunnel incision was closed in layers with intradermal buried 3-0 Vicryl suture and skin finally reapproximated with a horizontal mattress 4-0 nylon suture. Bulky sterile compression dressing was applied. Tourniquet was deflated. There was excellent return of perfusion to the leg. Patient was placed in a T ROM brace locked in full extension and set from 0 to 90 degrees. She was safely awoken the operative suite and transferred to PACU in stable condition. She underwent femoral nerve blockade in the PACU for postoperative analgesia. Need for skilled virtual assistant for advertisers: Annmarie Rascon PA-C was critical to the outcome of the case. During the course of the procedure the physician virtual assistant for advertisers played a vital role. Her intimate knowledge of my steps in the procedure aided in safe and expedient completion of the procedure. The PA played a vital role in positioning particularly in obtaining the appropriate positioning. The PA was also vital in the retraction of soft tissues during the exposure and protecting vital structures. The PA was also vital and obtaining meniscus reduction and assisting with hardware placement. She also played a vital role in closure and brace application with my direct supervision. Postoperative plan: Weightbearing: Touchdown weightbearing right lower extremity x 6 weeks, range of motion 0-90 degrees in the T ROM brace when seated or supine. Knee brace to be locked in full extension when ambulating with crutches. DVT prophylaxis: Early mobilization, aspirin 81 mg twice daily for DVT prophylaxis x 6 weeks Pain control: Tylenol and ibuprofen scheduled, as needed oxycodone ordered Physical therapy: Outpatient PT to begin 1 week. Follow-up: Follow-up in our office for 2 weeks suture removal and wound check X-rays: None
== END 2024-01-04 10:39 | disposition home or self-care (01) ==
LOC: SDC 06:58 → AC 08:15
PROVIDERS: Anesthesiology; PCP Internal Medicine; Referring Provider Student in an Organized Health Care Education/Training Program; Visit Provider Student in an Organized Health Care Education/Training Program
PROC: (CPT 29870; principal; 2024-01-04 07:10)
DX: S83.241A Other tear of medial meniscus, current injury, right knee, initial encounter (principal); S83.411A Sprain of medial collateral ligament of right knee, initial encounter; M25.461 Effusion, right knee; M17.11 Unilateral primary osteoarthritis, right knee; M94.261 Chondromalacia, right knee; E66.3 Overweight; E78.00 Pure hypercholesterolemia, unspecified; Z79.899 Other long term (current) drug therapy; Z86.16 Personal history of COVID-19; Z68.26 Body mass index [BMI] 26.0-26.9, adult; W19.XXXA Unspecified fall, initial encounter
CPT/HCPCS: 29877; 64447; 01400; 81025; J7120; J2405

== ENCOUNTER → 2024-04-29 | Outpatient (CLI) | payer SELFPAY ==
--- NOTE | 2024-04-29 08:23 | CT_ITS ---
STUDY: CT CHEST WITH CONTRAST REASON FOR EXAM: Female, [address] of chest RADIATION DOSAGE (If Supplied By Facility): CTDIvol = ( 9.56 ) mGy, DLP = ( 406.65 ) mGycm TECHNIQUE: Transaxial imaging was performed following intravenous administration of 100ML ISOVUE 370. Multiplanar coronal and sagittal images were reformatted. Individualized dose optimization techniques were used for this CT. COMPARISON: Comparison is made with the outside limited examination dated May 17, 2023. FINDINGS: CHEST The lungs are normal. There is no demonstrated pleural abnormality. Normal heart and pericardium. Normal mediastinum. Normal hilar regions. Normal unenhanced pulmonary arteries. Normal aorta arch and descending thoracic aorta. Normal osseous structures. There is no demonstrated abnormality of the visualized upper abdomen. CT/Chest WITH Contrast IMPRESSION: Normal enhanced CT chest examination. Electronically Signed: Rodger Manning MD at 10:56 EDT ,
== END | disposition home or self-care (01) ==
LOC: CT 08:18
PROVIDERS: PCP Internal Medicine; Referring Provider Internal Medicine; Visit Provider Internal Medicine
DX: R93.89 Abnormal findings on diagnostic imaging of other specified body structures (principal)
CPT/HCPCS: 71260; Q9967